=== PATIENT | male | born 1975 | race Caucasian/White ===

== ENCOUNTER 2017-11-02 19:41 | Inpatient (IN) | payer MEDICARE, MEDICAID, SELFPAY ==
[2017-11-02 19:47] VITALS: BP 113/79; PULSE 87; RESP 18
--- NOTE | 2017-11-02 19:56 | DI.CT_ITS ---
SYMPTOM/DIAGNOSIS: ABD PAIN ABDOMEN AND PELVIC CT: CT scan of the abdomen and pelvis was performed following the uneventful administration of intravenous contrast material. No priors for comparison. Mild dependent atelectatic changes are seen in the lung bases. The liver, spleen, pancreas, gallbladder and bile ducts are unremarkable. The portal and superior mesenteric veins are patent. There are bilateral adrenal nodules, the largest is on the right adrenal gland and measures 1.5 cm. The kidneys show normal and symmetric enhancement. No solid renal mass or obstruction is seen. There are a few tiny renal cortical hypodensities. They are too small for further characterization but likely reflect small cysts. The urinary bladder is intact. The reproductive organs are unremarkable. There is mild bowel wall thickening involving the terminal ileum. There also appears to be mild bowel wall thickening of more proximal loops of small bowel. The colon is of normal caliber and appearance. There is a normal appendix present. There is a trace amount of free fluid in the pelvis. No focal fluid collection is seen to suggest an abscess. No pneumoperitoneum is seen. No significant adenopathy is present. The aorta is of normal caliber. The bones are intact. IMPRESSION: Findings consistent with an enteritis which may be inflammatory or infectious. Ischemia cannot be entirely excluded but is considered less likely.
[2017-11-02] MEDS: Ketorolac 30 MG/ML VIAL IVP (20:07)
[2017-11-02] MEDS: Normal Saline 1,000 ML 1000 ML IV (20:08)
[2017-11-02] MEDS: Ondansetron 4 MG/2 ML VIAL IVP (20:09)
--- NOTE | 2017-11-02 20:12 | ED.GENADUL_ITS ---
Discharge Plan Disposition Patient Disposition: [facility] INPATIENT Condition: Fair Discharge Details Chief Complaint: Abd Prob Clinical Impression: Acute hypokalemia, Ileitis, Acute dehydration Primary Care Provider: Christ Knight ED Provider: Charles Tran and New Rx's Prescriptions: No Action oxycodone-acetaminophen 1 TAB tablet 1 tab PO TID PRN PRNRF: 0 omeprazole 20 MG capsule,delayed release(DR/EC) 40 mg PO BID RF: 0 paroxetine HCl 40 MG tablet 50 mg PO DAILY RF: 0 ibuprofen 800 MG tablet 800 mg PO QID PRN PRNQty: 0 RF: 0 nicotine 21 MG/24 HR patch 24 hour 21 mg Transdermal DAILY RF: 0 Medical Decision Making <Mannie Guevara NP - Last Filed: 11/02/17 22:33> MDM Narrative Medical decision making narrative: Patient presenting to the emergency department for chief complaint of abdominal pain for the past 4 days. He states that initially he just thought he had a mild stomachache but it has become persistent and severe. Today patient started to feel like he had a fever and has been unable to hold any food or fluids down as he states he instantly vomits and has diarrhea. Patient is ill in appearance and shows significant signs of discomfort. Physical exam shows regular cardiac and respiratory examination but diffusely severe tenderness to palpation of any portion of the abdomen. There is concern for peritoneal findings of the abdomen given diffuse severe tenderness to palpation I do feel that CT imaging and labs are warranted. Pending results patient given ketorolac and Zofran along with a liter of fluids. Received critical result of potassium of 2.9 and also further evaluation of labs shows a anion gap of 16 and otherwise nondiagnostic labs. Patient is not having leukocytosis noted at this time. Patient reassessed and states mild improvement of discomfort but with any pain. Patient still states that he is unable to tolerate any p.o. intake. Patient did have one loose BM in the emergency department which he states was just liquid. Plan to check stool sample if patient can provide, patient 20 mEq IV potassium and [address] results show some of the ileum. Given patient's dehydration, hypokalemia, and CT findings of ileitis do feel that patient is a candidate for admission. Patient signed out to Dr. Tran for further stabilization and admission. HPI <Mannie Guevara NP - Last Filed: 11/02/17 22:33> General Date/Time Provider Initiated Documentation: 11/02/17 19:47 . Limitations to Documentation: no limitations . Information obtained by: patient . History of Present Illness 42 year old M presents to the emergency department with the chief complaint of abd pain, described as severe, with intensity rated at 8. Quality is described as aching and sharp, and is localized to the abdomen. Patient started experiencing this day(s) (4) and it has been constant. No relieving factors improve symptom(s), No exacerbating factors reported . Patient did receive the following treatments prior to arrival, none Related Data Home Medications Medication Instructions Recorded Confirmed omeprazole 40 mg PO BID 03/13/14 01/12/17 oxycodone-acetaminophen 1 tab PO TID PRN PRN 03/13/14 01/12/17 paroxetine HCl 50 mg PO DAILY 03/13/14 01/12/17 Previous Rx's Medication Instructions Recorded ibuprofen 800 mg PO QID PRN PRN #0 tab 12/13/15 nicotine 21 mg TRANSDERMAL DAILY patch 12/13/15 Allergies Allergy/AdvReac Type Severity Reaction Status Date / Time No Known Allergies Allergy Unverified 01/12/17 20:13 General Stated Complaint: Abd Prob TJ: 3 Review of Systems <Mannie Guevara NP - Last Filed: 11/02/17 22:33> Constitutional Denies body ache(s), Denies chills and Reports fever(s) Cardiovascular Denies chest pain and Denies dyspnea Respiratory Denies dyspnea Gastrointestinal Reports abdominal pain, Reports nausea and Reports vomiting Integumentary/Breasts Denies rash Neurologic Denies confusion and Denies sensory deficit Psychiatric Denies confusion Exam <Mannie Guevara NP - Last Filed: 11/02/17 22:33> Const General: cooperative, in distress and ill appearing Orientation: alert, awake and oriented x3 HENMT Mouth: moist mucous membranes Resp Effort & Inspection: normal respiratory effort, able to speak in complete sentences and no respiratory distress Auscultation: clear to auscultation bilaterally Cardio Rate: regular rate Rhythm: regular rhythm Heart Sounds: S1 normal and S2 normal GI Palpation: soft, guarding in the LLQ, in the RLQ, in the LUQ and in the RUQ and tender in the LLQ, in the RLQ, in the LUQ and in the RUQ Auscultation: hyperactive bowel sounds Back/Spine/Pelvis Back: no CVA tenderness Skin General skin exam: no rashes or lesions noted Neuro General: alert, awake, oriented x3, moves all extremities and no focal motor deficits Sensory Exam: no sensory deficits noted Course <Mannie Guevara NP - Last Filed: 11/02/17 22:33> Vital Signs Pulse 87 11/02/17 19:47 Respiratory Rate 18 11/02/17 19:47 Blood Pressure 113/79 11/02/17 19:47 Pulse 87 11/02/17 19:47 Respiratory Rate 18 11/02/17 19:47 Blood Pressure 113/79 11/02/17 19:47 Sign Out <Mannie Guevara NP - Last Filed: 11/02/17 22:33> Sign Out Data: Sign Out Comment: Care patient signed over to Dr. Tran for consideration of admission of the patient with diagnosis of dehydration, hypokalemia, ileitis. Last updated by Mannie Guevara NP at 11/02/17 22:26 Post-Handoff Eval: Patient signed over to me for consideration of admission. I briefly interviewed the patient. He has had sweats and chills but does not know whether he has had fever. There has been no travel. He has been ill for the last 4 days and getting progressively worse. He has mild anion gap with hypokalemia. He has not had bloody diarrhea. CT scan shows ileitis which is likely infectious versus inflammatory and much less likely ischemic. He does not have pain out of proportion to exam. He is actually quite comfortable but still has discomfort. His abdomen is soft and mildly tender to my exam. He has had 2 L of fluid. He is finishing his IV potassium replacement. He does not feel significantly better though with medications he has stopped vomiting. Case is discussed with hospitalist, Dr. Douglas. At this point we will admit to keep him n.p.o. and continue IV fluids. Will hold off on antibiotics or steroids.
[2017-11-02 20:23] LABS: Abs Immature Grans 0.01 k/cumm (0.0-0.09); Absolute Basophil Count 0.01 k/cumm (0.0-0.2); Absolute Eosinophil Count 0.11 k/cumm (0.0-0.7); Absolute Lymphocyte Count 1.63 k/cumm (1.2-3.4); Absolute Monocyte Count 0.75 k/cumm (0.11-0.7); Absolute Neutrophil Count 4.77 k/cumm (1.2-6.7); Basophils % 0.1; Eosinophils % 1.5; HCT 44.8 % (40.0-50.0); HGB 15.7 g/dL (13.5-17.5); Immature Grans % 0.1; Lymphocytes % 22.4; Mean Corpuscular Hemoglobin 30.7 pg (27.0-33.0); Mean Corpuscular Volume 87.7 fL (80-95); Mean Platelet Volume 9.4 fL (8.0-11.0); Monocytes % 10.3; Neutrophils % 65.6; Platelet Count 254 x1000/uL (130-400); RBC 5.11 m/cumm (4.50-6.00); RBC Distribution Width 12.8 % (11.8-14.1); White Blood Cell Count 7.28 k/cumm (4.4-10.8)
[2017-11-02 20:31] LABS: ALT 37 U/L (12-78); AST 61 U/L (15-37); Albumin 3.5 g/dL (3.4-5.0); Alkaline Phosphatase 87 U/L (46-116); Anion Gap 16.2 mmol/L (3-11); BUN 18 mg/dL (7-18); Bilirubin, Total 0.3 mg/dL (0.2-1.0); CO2 19.8 mmol/L (21.0-32.0); CREATININE 1.24 mg/dL (0.70-1.30); Calcium 8.6 mg/dL (8.5-10.1); Chloride 99 mmol/L (98-107); Glucose 121 mg/dL (70-100); Lipase 90 U/L (73-393); Sodium 135 mmol/L (136-145); Total Protein 7.7 g/dL (6.4-8.2)
[2017-11-02 20:33] LABS: Potassium 2.9 mmol/L (3.5-5.1)
[2017-11-02] MEDS: Lactated Ringers 1,000 ML 1000 ML IV (21:25)
[2017-11-02] MEDS: POTASSIUM CHLORIDE 10 MEQ/100 ML BAG 100 MEQ IVPB ×2 (21:26→22:12)
--- NOTE | 2017-11-02 22:13 | DI.VRAD_ITS ---
EXAM: CT Abdomen and Pelvis With Intravenous Contrast CLINICAL HISTORY: 42 years old, male; Pain; Abdominal pain; Other: Lower abdominal pain. ; Patient HX: Abd pain, vomiting, diarrhea. TECHNIQUE: Axial computed tomography images of the abdomen and pelvis with intravenous contrast. All CT scans at this facility use at least one of these dose optimization techniques: automated exposure control; mA and/or kV adjustment per patient size (includes targeted exams where dose is matched to clinical indication); or iterative reconstruction. Coronal and sagittal reformatted images were created and reviewed. CONTRAST: 100 mL of Omnipaque 350 administered intravenously. COMPARISON: No relevant prior studies available. FINDINGS: Lung bases: Dependent changes within the lung bases. ABDOMEN: Liver: Unremarkable. No mass. Gallbladder and bile ducts: Unremarkable. No calcified stones. No ductal dilation. Pancreas: Unremarkable. No mass. No ductal dilation. Spleen: Unremarkable. No splenomegaly. Adrenals: Unremarkable. No mass. Kidneys and ureters: Unremarkable. No solid mass. No hydronephrosis. Stomach and bowel: Circumferential wall thickening of the distal and terminal ileum. No pneumatosis. Mild dilatation with fluid levels within the mid small bowel proximal to the ileum wall thickening. The proximal jejunum is unremarkable. PELVIS: Appendix: No findings to suggest acute appendicitis. Bladder: Unremarkable. No mass. Reproductive: Unremarkable as visualized. ABDOMEN and PELVIS: Intraperitoneal space: Trace fluid within the right lower pelvis. No free air. Bones/joints: No acute fracture. No dislocation. Soft tissues: Unremarkable. Vasculature: Patent superior mesenteric artery. No abdominal aortic aneurysm. Lymph nodes: Unremarkable. No enlarged lymph nodes. IMPRESSION: Ileitis involving the distal and terminal ileum, likely inflammatory or infectious. Ischemic ileitis is not excluded, but less likely. Dictated and Authenticated by: Lonny Gonzales MD. Ordering:HARI CANNON MD
[2017-11-02 23:40] VITALS: BP 120/79; PULSE 68; RESP 20; TEMP 36.3; O2SAT 96
[2017-11-02 23:52] VITALS: BP 113/80; PULSE 88; RESP 18; TEMP 36.8; O2SAT 99
[2017-11-03] MEDS: Pantoprazole 40 MG VIAL IVP (01:37)
[2017-11-03] MEDS: POTASSIUM CHLORIDE 10 MEQ/100 ML BAG 100 MEQ IVPB ×2 (01:37→03:02)
[2017-11-03] MEDS: Normal Saline Flush 10 ML SYR IVP (01:38)
--- NOTE | 2017-11-03 03:19 | HPE_ITS ---
Date of service: 11/02/17 Time of Service: 21:20 Assessment and Plan (1) Vomiting and diarrhea: Current visit: Yes Status: Acute Differential of infectious versus inflammatory ileitis/enteritis. Acuity suggests this is probably infectious but no definite exposures. He does work on a farm with swine, unknown if there might have been some acquisition of an infectious pathogen from his work. From a diagnostic standpoint will collect stool samples for bacterial pathogens. His symptoms are acute and so I am not going to order stool studies for Giardia cryptosporidia antigen. Check for occult blood. Symptomatic treatment for nausea and abdominal pain. IV hydration. Bowel rest. If symptoms are not getting better with time, consider endoscopy. Without a solid diagnosis I am not starting antibiotics or steroids. (2) Hypokalemia due to loss of potassium: Current visit: Yes Status: Acute Low potassium likely due to GI loss. Will replete intravenously and recheck potassium level. (3) Depression: Current visit: Yes Status: Chronic Apparently stable on current dose of paroxetine. Unable to take p.o. meds now but can resume his outpatient dose at 50 mg daily when he is taking p.o. (4) Chronic back pain greater than 3 months duration: Current visit: Yes Status: Acute This does not seem to be an issue now. His chronic opiates are on hold for the short-term. Need to watch for withdrawal symptoms. (5) Chronic prescription opiate use: Current visit: Yes Status: Acute From review of his outpatient notes there have not been concerns about any aberrant behaviors. He has been stable with his oxycodone dosing. (6) GERD (gastroesophageal reflux disease): Current visit: Yes Status: Chronic Chronic high-dose PPI use with patient report of EGD years ago showing no significant abnormalities. While he is n.p.o. will give PPI intravenously. (7) Smoker: Current visit: Yes Status: Chronic Not particularly interested in quitting at this time but does not have a strong interest to smoke while he is feeling so poorly. Nicotine replacement will be offered. History of Present Illness Chief Complaint: Nausea vomiting and diarrhea Narrative: 42-year-old man with a history of GERD, depression, tobacco use and chronic back pain presenting to the emergency room with 3 days of unremitting nausea, 2 days of nonbloody nonbilious vomiting and nonbloody non-melanotic diarrhea, multiple times per day. He has not been able to keep anything down, solids or liquids. Movement aggravates his symptoms. He has had some diffuse mid abdominal pain that gets a little better after he vomits or has a bowel movement. No ill contacts. No recent travel. No recent antibiotics. No history of chronic diarrhea or constipation and no known history of inflammatory bowel disease. He does have chronic GERD with dyspepsia and bloating which has responded to high-dose PPI that he takes chronically. He reports having colonoscopy and EGD decades ago to investigate his abdominal complaints with no clear etiology found. He works on a farm with pigs, no known exposures to any ill animals. No household contacts with GI symptoms. No family history of inflammatory bowel disease. He endorses chills and sweats but did not measure his temperature at home. In the emergency room he was not hypotensive or febrile. He had recurrent retching but no diarrhea. His symptoms improved somewhat Zofran and 2 L of IV fluids. Laboratory studies were notable for hypokalemia with a potassium of 2.9 for which she received a total of 20 mEq of potassium intravenously. CT scan of the abdomen notable for bowel wall swelling in the ileum compatible with ileitis, of infectious or inflammatory etiology. He is now being admitted for symptom treatment and further evaluation of his GI complaints. Medications from his outpatient medication list: Paxil 50 mg daily Omeprazole 40 mg twice daily Oxycodone/acetaminophen 5/325 1 tablet 3 times daily He has older prescriptions for azelastine, montelukast and cetirizine, not clear if these have recently been filled or if he still takes them Review of Systems Review of Systems Edentulous, teeth extracted years ago secondary to caries? No complaints of mouth sores. No trouble swallowing. No recurrent cough or wheezing. No chest pains or palpitations. GI complaints per HPI. No dysuria. Urine frequency has decreased with this illness, no blood in urine. No paresthesias in the lower extremities. Feels generally weak but no focal weakness upper or lower extremities. He has a chronic rash on his chest that he reports has been biopsied, no clear etiology found. No recent unintended weight loss. No large bruises or bleeding. [facility] Social History Smoking/Tobacco Use Status: Current every day Meds Home Medications Medication Instructions Recorded Confirmed Type omeprazole 40 mg PO BID 03/13/14 11/03/17 History oxycodone-acetaminophen 1 tab PO TID PRN PRN 03/13/14 11/03/17 History paroxetine HCl 50 mg PO DAILY 03/13/14 11/03/17 History Allergies Allergy/AdvReac Type Severity Reaction Status Date / Time No Known Allergies Allergy Unverified 01/12/17 20:13 Exam Narrative Exam Narrative: Lying on stretcher he is uncomfortable and nauseated. Does not have resting tachycardia at this time after 2 L of fluid. Sclera anicteric. Edentulous with no oral lesions. Neck supple no JVD. Lungs good aeration no crackles or wheeze. No heart murmur S3 or S4. Abdomen slightly distended, diminished bowel sounds. Mild tenderness to palpation mainly in the right side of the abdomen, no guarding or rebound and no referred pain. No organomegaly or mass appreciated. Rectal exam was not done. Extremities with good pulses distally. No pitting edema. No petechiae. He has erythematous slightly raised nodule-like lesions on his upper chest and back some of these are excoriated. Symmetric movement of all extremities. 1+ DTRs throughout. He sits up unassisted. He is oriented ?4. Results Labs : 11/02/17 20:00 11/02/17 20:00 Laboratory Results - last 24 hr 11/02/17 11/02/17 20:00 20:00 WBC 7.28 RBC 5.11 Hgb 15.7 Hct 44.8 MCV 87.7 MCH 30.7 MCHC 35.0 RDW 12.8 Plt Count 254 MPV 9.4 Immature Gran % 0.1 Neutrophils % 65.6 Lymphocytes % 22.4 Monocytes % 10.3 Eosinophils % 1.5 Basophils % 0.1 Absolute Neutrophils 4.77 Absolute Lymphocytes 1.63 Absolute Monocytes 0.75 H Absolute Eosinophils 0.11 Absolute Basophils 0.01 Sodium 135 L Potassium 2.9 L* Chloride 99 Carbon Dioxide 19.8 L Anion Gap 16.2 H BUN 18 Creatinine 1.24 Estimated GFR/1.73 m2 >= 60.00 Glucose 121 H Calcium 8.6 Total Bilirubin 0.3 AST 61 H ALT 37 Alkaline Phosphatase 87 Total Protein 7.7 Albumin 3.5 Lipase 90
[2017-11-03 07:35] LABS: Anion Gap 6.4 mmol/L (3-11); BUN 20 mg/dL (7-18); CO2 26.6 mmol/L (21.0-32.0); CREATININE 1.02 mg/dL (0.70-1.30); Calcium 8.4 mg/dL (8.5-10.1); Chloride 104 mmol/L (98-107); Glucose 103 mg/dL (70-100); Potassium 3.9 mmol/L (3.5-5.1); Sodium 137 mmol/L (136-145)
[2017-11-03 09:03] VITALS: BP 110/71; PULSE 65; RESP 18; TEMP 35.9; O2SAT 97
[2017-11-03 10:17] LABS: Bilirubin Small (Negative); Blood Trace-lysed (Negative); Clarity Clear; Glucose Negative (Negative); Ketones Negative (Negative); Leukocyte Esterase Negative (Negative); Nitrite Negative (Negative); Specific Gravity 1.025 (1.005-1.025); Urobilinogen 0.2 EU/dL (Up TO 0.2)
[2017-11-03 10:46] LABS: Bacteria Negative HPF (Negative); Epithelial Cells Negative HPF (Negative); RBC Negative (0-2); WBC 0-2 HPF (0-5)
[2017-11-03 10:47] LABS: C & S Indicated? No; Casts 3-5 Fine Granular LPF (Negative); Mucus Trace (Negative)
[2017-11-03 10:48] LABS: Crystals Many Amorphous HPF (Negative)
--- NOTE | 2017-11-03 11:17 | PDOC.CMIN ---
- If Service Date Differs Date of service: 11/03/17 Time of Service: 11:17 Care Management Initial Assess REASON FOR HOSPITALIZATION:: Nausea, Vomiting, Diarrhea PAST MEDICAL HISTORY/PAST SURGICAL HISTORY:: GERD, Allergic rhinitis, Smoker, Chronic prescription opiate use, Chronic back pain, Depression, Hypokalemia PREVIOUS FUNCTIONAL STATUS/SOCIAL/FAMILY SUPPORTS:: Félix resides with his Ciera of 18 years in [place]. Félix states that they have three children, all whom are adults. Félix also states that him and his are adopting their 2 year old grandchild. 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 He is independent at baseline, drives, and manages ADL's CURRENT FUNCTIONAL STATUS:: Currently Félix is lying in bed this morning, he is pleasant and open to conversation. ADVANCE DIRECTIVES:: None on file Has patient been provided with information about the portal?: Yes Did the patient sign up for the portal?: No CODE STATUS:: Full Code INSURANCE COVERAGE / FINANCIAL ISSUES:: Medicare, Medicaid. Disability - has been on disability for 9 years for spine issues CURRENT HOME/COMMUNITY SERVICES/EQUIPMENT:: Currently Félix has no services or medical equipment in the community. PRIMARY CARE PHYSICIAN:: Christ Knight POTENTIAL DISCHARGE NEEDS:: F/U appointment with PCP PATIENT/FAMILY EDUCATION NEEDS:: Review DC instructions, any limitations, and ongoing DC planning discussion. Ask Me Three ANTICIPATED BARRIERS TO DISCHARGE:: None identified at this time. TRANSPORTATION:: Via private vehicle with Ciera PLAN:: Félix will return home with no anticipated services. He will F/U with PCP and plan of care as prescribed. Félix's Ciera will transport when ready.
--- NOTE | 2017-11-03 13:36 | PHARADMIT ---
Addendum entered by Sana Amaro 11/05/17 11:31: Pharmacy Note Subjective last episode of diarrhea yesterday afternoon per morning report, so advancing diet again Objective HR-56 other VS okay Assessment waiting on the results of some stool send outs Plan continue to watch VS, labs and for med changes Original Note: Addendum entered by Sana Amaro 11/04/17 13:01: Pharmacy Note Subjective backed off on diet (back to clear liquids) for bowel rest Objective HR-58 other VS okay electrolytes within normal limits h/h-12.6/37.6(down) Assessment C.diff negative; lactoferrin positive ranitidine discontinued, omeprazole ordered Plan continue to watch Vs, labs and for med changes, Original Note: Admission Pharmacy Clinical Review ILEITIS Code Status Full Code Current Weight 101.2 kg Renally Cleared and Narrow Therapeutic Index Meds CRCL ~99ML/MIN QTc Value / Action Taken BP Control, Fever 110/71 AFEBRILE Electrolytes reviewed OK DVT Prophylaxis NO Opiate Usage / Scheduled Bowel Regimen Ordered NO/NO Plt/SCr for Heparin / Enoxaparin 254/1.02 INR for Warfarin NA H/H stable, WBC/Bands 15.7/44.8 WBC 7.28 Antibiotic appropriateness NA Cultures and Sensitivities NA Surgical ABX d/c within 24 hr NA DM control / Insulin Dosing Heart Failure (Check EF%) (JUSTINO's, B-Block, Diuretics) IV to PO Switch Home Meds Reviewed Home Meds Not Ordered oxycodone-acetaminophen 1 tab PO TID PRN PRN 03/13/14 paroxetine HCl 50 mg PO DAILY 03/13/14 [History Confirmed 11/03/17] ibuprofen 800 mg PO QID PRN PRN #0 tab 12/13/15 [Rx Confirmed 11/03/17] Comments
[2017-11-03 16:32] VITALS: BP 105/68; PULSE 69; RESP 18; TEMP 36.4; O2SAT 96
--- NOTE | 2017-11-03 16:58 | PGE_ITS ---
Date of service: 11/03/17 Time of Service: 16:52 Assessment and Plan (1) Vomiting and diarrhea: Current visit: Yes Status: Acute Differential of infectious versus inflammatory ileitis/enteritis. 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 He appears to be improving today. Stool studies are pending. Continue symptomatic treatment. Consider endoscopy if his symptoms persist. Hold off on antibiotics and steroids for now without a clear diagnosis. (2) Hypokalemia due to loss of potassium: Current visit: Yes Status: Acute He has received potassium supplementation. His potassium is normal today at 3.9. Potassium containing IV fluids have been discontinued. Continue to monitor electrolytes. (3) GERD (gastroesophageal reflux disease): Current visit: Yes Status: Chronic He denies current symptoms. He has been on high dose PPI therapy. Hold for now and trial H2 cesar to determine if the PPI is contributing to his diarrhea. (4) Depression: Current visit: Yes Status: Chronic Stable on current paroxetine. Has been restarted on his home regimen. Continue home dosing. (5) Discharge planning issues: Current visit: Yes Status: Acute He is a FULL CODE. Continue to monitor on observation status. Subjective Interval history since last seen: 42-year-old man with a history of GERD, depression, tobacco use and chronic back pain presenting to the emergency room with 3 days of unremitting nausea, 2 days of nonbloody nonbilious vomiting and nonbloody non-melanotic diarrhea, multiple times per day. He was unable to keep anything down. He has had No ill contacts. No recent travel. No recent antibiotics. No history of chronic diarrhea or constipation and no known history of inflammatory bowel disease. In the emergency room his laboratory studies were notable for hypokalemia with a potassium of 2.9 for which she received supplementation and potassium containing fluids over night. He had a CT scan of the abdomen which was notable for bowel wall swelling in the ileum compatible with ileitis, of infectious or inflammatory etiology. He was admitted for symptom management. Today he notes that he is no longer nauseated, his bowel movements seemed to have subsided he was NPO overnight. His diet was advanced to clear liquids, which he tolerated well. He then went on to eat a regular lunch and had recurrence of his diarrhea. Stool studies were collected. His labs were fairly unremarkable today. He denies any other concerns. He was started on protonix here, however, his PPI was changed to an H2 cesar to see if this made any difference with his diarrhea. Exam Const General: cooperative, comfortable and no acute distress Orientation: alert, awake and oriented x3 HENMT Head: normocephalic and atraumatic Mouth: moist mucous membranes Teeth and gingiva: edentulous Neck Neck: supple and no JVD Resp Effort & Inspection: normal respiratory effort Auscultation: clear to auscultation bilaterally, no rales, no rhonchi and no wheezes Cardio Rate: regular rate Heart Sounds: S1 normal, S2 normal, no click, no gallops, no murmurs and no rubs GI Palpation: soft, no masses and tender (mild epigastric tenderness.) Auscultation: normal bowel sounds Skin General skin exam: no rashes or lesions noted Extrem General: no clubbing, cyanosis or edema Objective Objective Clinical Data: Abnormal lab results 11/02/17 11/02/17 11/03/17 Range/Units 20:00 20:00 06:10 Absolute Monocytes 0.75 H (0.11-0.7) k/cumm Sodium 135 L (136-145) mmol/L Potassium 2.9 L* (3.5-5.1) mmol/L Carbon Dioxide 19.8 L (21.0-32.0) mmol/L Anion Gap 16.2 H (3-11) mmol/L BUN 20 H (7-18) mg/dL Glucose 121 H 103 H (70-100) mg/dL Calcium 8.4 L (8.5-10.1) mg/dL AST 61 H (15-37) U/L Urine Protein (Negative) mg/dL Urine Blood (Negative) Urine Bilirubin (Negative) 11/03/17 Range/Units 09:57 Absolute Monocytes (0.11-0.7) k/cumm Sodium (136-145) mmol/L Potassium (3.5-5.1) mmol/L Carbon Dioxide (21.0-32.0) mmol/L Anion Gap (3-11) mmol/L BUN (7-18) mg/dL Glucose (70-100) mg/dL Calcium (8.5-10.1) mg/dL AST (15-37) U/L Urine Protein 100 H (Negative) mg/dL Urine Blood Trace-lysed H (Negative) Urine Bilirubin Small H (Negative) Vital Signs Temp 36.4 C L 11/03/17 16:32 Pulse 69 11/03/17 16:32 Resp 18 11/03/17 16:32 BP 105/68 11/03/17 16:32 Pulse Ox 96 11/03/17 16:32 Intake & Output 11/02/17 11/03/17 11/03/17 23:59 11:59 23:59 Intake Total 76.667 / 76.667 2440 / 2440 875 / 875 Balance 76.667 / 76.667 2440 / 2440 875 / 875 Weight 101.2 kg Intake: IV 76.667 / 76.667 2200 / 2200 185 / 185 Oral 240 / 240 690 / 690 Other: Comment voiding well thruout day shift Stool Occult Blood Positive Stool Size Moderate Stool Characteristics Liquid Liquid Brown Voiding Methods Toilet Laboratory Results WBC 7.28 k/cumm (4.4-10.8) 11/02/17 20:00 RBC 5.11 m/cumm (4.50-6.00) 11/02/17 20:00 Hgb 15.7 g/dL (13.5-17.5) 11/02/17 20:00 Hct 44.8 % (40.0-50.0) 11/02/17 20:00 MCV 87.7 fL (80-95) 11/02/17 20:00 MCH 30.7 pg (27.0-33.0) 11/02/17 20:00 MCHC 35.0 g/dL (32.0-36.0) 11/02/17 20:00 RDW 12.8 % (11.8-14.1) 11/02/17 20:00 Plt Count 254 x1000/uL (130-400) 11/02/17 20:00 MPV 9.4 fL (8.0-11.0) 11/02/17 20:00 Immature Gran % 0.1 11/02/17 20:00 Neutrophils % 65.6 11/02/17 20:00 Lymphocytes % 22.4 11/02/17 20:00 Monocytes % 10.3 11/02/17 20:00 Eosinophils % 1.5 11/02/17 20:00 Basophils % 0.1 11/02/17 20:00 Absolute Neutrophils 4.77 k/cumm (1.2-6.7) 11/02/17 20:00 Absolute Lymphocytes 1.63 k/cumm (1.2-3.4) 11/02/17 20:00 Absolute Monocytes 0.75 k/cumm (0.11-0.7) H 11/02/17 20:00 Absolute Eosinophils 0.11 k/cumm (0.0-0.7) 11/02/17 20:00 Absolute Basophils 0.01 k/cumm (0.0-0.2) 11/02/17 20:00 Sodium 137 mmol/L (136-145) 11/03/17 06:10 Potassium 3.9 mmol/L (3.5-5.1) D 11/03/17 06:10 Chloride 104 mmol/L (98-107) 11/03/17 06:10 Carbon Dioxide 26.6 mmol/L (21.0-32.0) 11/03/17 06:10 Anion Gap 6.4 mmol/L (3-11) 11/03/17 06:10 BUN 20 mg/dL (7-18) H 11/03/17 06:10 Creatinine 1.02 mg/dL (0.70-1.30) 11/03/17 06:10 Estimated GFR/1.73 m2 >= 60.00 (mL/min/1.73m2) 11/03/17 06:10 Glucose 103 mg/dL (70-100) H 11/03/17 06:10 Calcium 8.4 mg/dL (8.5-10.1) L 11/03/17 06:10 Total Bilirubin 0.3 mg/dL (0.2-1.0) 11/02/17 20:00 AST 61 U/L (15-37) H 11/02/17 20:00 ALT 37 U/L (12-78) 11/02/17 20:00 Alkaline Phosphatase 87 U/L (46-116) 11/02/17 20:00 Total Protein 7.7 g/dL (6.4-8.2) 11/02/17 20:00 Albumin 3.5 g/dL (3.4-5.0) 11/02/17 20:00 Lipase 90 U/L (73-393) 11/02/17 20:00 Urine Color Dark yellow (Yellow) 11/03/17 09:57 Urine Clarity Clear 11/03/17 09:57 Urine pH 6.0 (5-8) 11/03/17 09:57 Ur Specific [place] 1.025 (1.005-1.025) 11/03/17 09:57 Urine Protein 100 mg/dL (Negative) H 11/03/17 09:57 Urine Ketones Negative mg/dL (Negative) 11/03/17 09:57 Urine Blood Trace-lysed (Negative) H 11/03/17 09:57 Urine Nitrite Negative (Negative) 11/03/17 09:57 Urine Bilirubin Small (Negative) H 11/03/17 09:57 Urine Urobilinogen 0.2 EU/dL (Up TO 0.2) 11/03/17 09:57 Ur Leukocyte Esterase Negative (Negative) 11/03/17 09:57 Urine RBC Negative (0-2) 11/03/17 09:57 Urine WBC 0-2 HPF (0-5) 11/03/17 09:57 Ur Epithelial Cells Negative HPF (Negative) 11/03/17 09:57 Urine Crystals Many amorphous HPF (Negative) 11/03/17 09:57 Urine Bacteria Negative HPF (Negative) 11/03/17 09:57 Urine Casts 3-5 fine granular LPF (Negative) 11/03/17 09:57 Urine Mucus Trace (Negative) 11/03/17 09:57 Ur Culture Indicated? No 11/03/17 09:57 Urine Glucose Negative mg/dL (Negative) 11/03/17 09:57 C.difficile Tox Ab Neut Cancelled 11/03/17 14:55
[2017-11-03 20:06] VITALS: BP 114/65; PULSE 72; RESP 18; TEMP 36.8; O2SAT 95
[2017-11-04 07:19] LABS: HCT 37.6 % (40.0-50.0); HGB 12.6 g/dL (13.5-17.5); Mean Corp. HGB Concentration 33.5 g/dL (32.0-36.0); Mean Corpuscular Hemoglobin 30.4 pg (27.0-33.0); Mean Corpuscular Volume 90.8 fL (80-95); Mean Platelet Volume 9.4 fL (8.0-11.0); Platelet Count 248 x1000/uL (130-400); RBC 4.14 m/cumm (4.50-6.00); RBC Distribution Width 12.5 % (11.8-14.1); White Blood Cell Count 5.47 k/cumm (4.4-10.8)
[2017-11-04 07:35] VITALS: BP 112/69; PULSE 58; RESP 18; TEMP 36.9; O2SAT 99
[2017-11-04] MEDS: PARoxetine 20 MG TAB 40 MG PO (07:48)
[2017-11-04] MEDS: PARoxetine 10 MG TAB PO (07:48)
[2017-11-04] MEDS: Normal Saline Flush 10 ML SYR IVP (07:55)
--- NOTE | 2017-11-04 08:59 | PDOC.CMPRO ---
- If Service Date Differs Date of service: 11/04/17 Time of Service: 08:59 Care Management Progress Note S/O: Félix is lying in bed this morning when this com writer visits. He states that he did not sleep well last night. Per MD in morning meeting diet will be advanced slowly. No change in DC plan. A: 42 y/o male admitted 11/02/17 for ileitis. P: Félix will return home with no anticipated services. He will F/u with PCP and plan of care as prescribed. [facility] to transport.
[2017-11-04 09:20] LABS: Anion Gap 5.3 mmol/L (3-11); BUN 16 mg/dL (7-18); CO2 29.7 mmol/L (21.0-32.0); CREATININE 0.93 mg/dL (0.70-1.30); Calcium 8.5 mg/dL (8.5-10.1); Chloride 107 mmol/L (98-107); Glucose 97 mg/dL (70-100); Potassium 3.9 mmol/L (3.5-5.1); Sodium 142 mmol/L (136-145)
--- NOTE | 2017-11-04 09:43 | CMPROGNOTE_ITS ---
- If Service Date Differs Date of service: 11/04/17 Time of Service: 08:59 Care Management Progress Note S/O: Félix is lying in bed this morning when this health underwriter visits. He states that he did not sleep well last night. Per MD in morning meeting diet will be advanced slowly. No change in DC plan. A: 42 y/o male admitted 11/02/17 for ileitis. P: Félix will return home with no anticipated services. He will F/u with PCP and plan of care as prescribed. [facility] to transport.
[2017-11-04] MEDS: Omeprazole 20 MG CAPCR 40 MG PO ×2 (10:02→20:23)
--- NOTE | 2017-11-04 10:21 | W.PM.PROGNOT ---
Date of service: 11/04/17 Time of Service: 10:22 Assessment and Plan (1) Vomiting and diarrhea: Current visit: Yes Status: Acute Differential of infectious versus inflammatory ileitis/enteritis. 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 His diet was advanced yesterday, he has had increased diarrhea since. We will plan to place him back on a clear liquid diet for bowel rest. Stool studies are pending. Continue symptomatic treatment. Consider endoscopy if his symptoms persist. Hold off on antibiotics and steroids for now without a clear diagnosis. (2) Hypokalemia due to loss of potassium: Current visit: Yes Status: Acute His potassium is normal today at 3.9. He is no longer receiving potassium supplementation. Continue to monitor electrolytes in the setting of diarrhea. (3) GERD (gastroesophageal reflux disease): Current visit: Yes Status: Chronic He denies current symptoms. He has been on high dose PPI therapy. His PPI was held and he was given an H2 cesar to determine if the PPI was contributing to his diarrhea. His GERD has increased significantly. Plan to place him back on his usual PPI dose. Continue to monitor. (4) Depression: Current visit: Yes Status: Chronic Stable on current paroxetine. Continue home regimen. (5) Discharge planning issues: Current visit: Yes Status: Acute He is a FULL CODE. Continue to monitor on observation status. this case was discussed with Dr. Kearns who is in agreement. (6) Anemia: Current visit: Yes Status: Chronic His hemoglobin and hematocrit are done today. He has had diarrhea and did have a heme positive stool on admission. Continue to heme test stools and follow blood counts. Subjective Interval history since last seen: 42-year-old man with a history of GERD, depression, tobacco use and chronic back pain presenting to the emergency room with 3 days of unremitting nausea, 2 days of nonbloody nonbilious vomiting and nonbloody non-melanotic diarrhea, multiple times per day. He was unable to keep anything down. He has had No ill contacts. No recent travel. No recent antibiotics. No history of chronic diarrhea or constipation and no known history of inflammatory bowel disease. In the emergency room his laboratory studies were notable for hypokalemia with a potassium of 2.9 for which she received supplementation and potassium containing with overnight improvement. He had a CT scan of the abdomen which was notable for bowel wall swelling in the ileum compatible with ileitis, of infectious or inflammatory etiology. He was admitted for symptom management. He was kept n.p.o. Yesterday morning his diarrhea had subsided somewhat. His diet was advanced to clear liquids which he tolerated well. He asked to advance his diet for other. With the advancement of his diet his diarrhea ensued. He has had multiple brown liquid stools. His only other complaint is epigastric discomfort. His PPI was changed to an H2 cesar yesterday. We will place him back on his usual PPI therapy. On his initial presentation he was noted to have a heme positive stool. His hemoglobin and hematocrit are down slightly today. We will place him back on a clear liquid diet to give his bowels some rest and continue to follow his blood counts. He does have blood cultures pending which we will continue to follow. He denies any other concerns such as cough, shortness of breath, wheezing, chest pain, pressure, palpitations, nausea, vomiting, he has not reported any pain. Exam Const General: cooperative, comfortable and no acute distress Orientation: alert, awake and oriented x3 HENMT Head: normocephalic and atraumatic Mouth: moist mucous membranes Teeth and gingiva: edentulous Neck Neck: supple and no JVD Resp Effort & Inspection: normal respiratory effort Auscultation: clear to auscultation bilaterally, no rales, no rhonchi and no wheezes Cardio Rate: regular rate Heart Sounds: S1 normal, S2 normal, no click, no gallops, no murmurs and no rubs GI Palpation: soft, no masses and tender (mild epigastric tenderness on palpation.) Auscultation: normal bowel sounds Skin General skin exam: no rashes or lesions noted Extrem General: no clubbing, cyanosis or edema Objective Objective Clinical Data: Abnormal lab results 11/03/17 11/04/17 Range/Units 09:57 06:22 RBC 4.14 L (4.50-6.00) m/cumm Hgb 12.6 L D (13.5-17.5) g/dL Hct 37.6 L (40.0-50.0) % Urine Protein 100 H (Negative) mg/dL Urine Blood Trace-lysed H (Negative) Urine Bilirubin Small H (Negative) Vital Signs Temp 36.9 C 11/04/17 07:35 Pulse 58 L 09/22/18 07:35 Resp 18 11/04/17 07:35 BP 112/69 11/04/17 07:35 Pulse Ox 99 11/04/17 07:35 Intake & Output 11/03/17 11/03/17 11/04/17 11:59 23:59 11:59 Intake Total 2440 / 2440 875 / 875 3112 / 3112 Balance 2440 / 2440 875 / 875 3112 / 3112 Intake: IV 2200 / 2200 185 / 185 10 Oral 240 / 240 690 / 690 3102 / 3102 Other: Urine Appearance Clear Clear Comment voiding well thruout day shift voiding indep in BR at tim. Stool Occult Blood Positive Stool Size Moderate Stool Characteristics Liquid Liquid Liquid Brown Brown Brown Voiding Methods Toilet Toilet Laboratory Results WBC 5.47 k/cumm (4.4-10.8) 11/04/17 06:22 RBC 4.14 m/cumm (4.50-6.00) L 11/04/17 06:22 Hgb 12.6 g/dL (13.5-17.5) L D 11/04/17 06:22 Hct 37.6 % (40.0-50.0) L 11/04/17 06:22 MCV 90.8 fL (80-95) 11/04/17 06:22 MCH 30.4 pg (27.0-33.0) 11/04/17 06:22 MCHC 33.5 g/dL (32.0-36.0) 11/04/17 06:22 RDW 12.5 % (11.8-14.1) 11/04/17 06:22 Plt Count 248 x1000/uL (130-400) 11/04/17 06:22 MPV 9.4 fL (8.0-11.0) 11/04/17 06:22 Immature Gran % 0.1 11/02/17 20:00 Neutrophils % 65.6 11/02/17 20:00 Lymphocytes % 22.4 11/02/17 20:00 Monocytes % 10.3 11/02/17 20:00 Eosinophils % 1.5 11/02/17 20:00 Basophils % 0.1 11/02/17 20:00 Absolute Neutrophils 4.77 k/cumm (1.2-6.7) 11/02/17 20:00 Absolute Lymphocytes 1.63 k/cumm (1.2-3.4) 11/02/17 20:00 Absolute Monocytes 0.75 k/cumm (0.11-0.7) H 11/02/17 20:00 Absolute Eosinophils 0.11 k/cumm (0.0-0.7) 11/02/17 20:00 Absolute Basophils 0.01 k/cumm (0.0-0.2) 11/02/17 20:00 Sodium 142 mmol/L (136-145) 11/04/17 09:00 Potassium 3.9 mmol/L (3.5-5.1) 11/04/17 09:00 Chloride 107 mmol/L (98-107) 11/04/17 09:00 Carbon Dioxide 29.7 mmol/L (21.0-32.0) 11/04/17 09:00 Anion Gap 5.3 mmol/L (3-11) 11/04/17 09:00 BUN 16 mg/dL (7-18) 11/04/17 09:00 Creatinine 0.93 mg/dL (0.70-1.30) 11/04/17 09:00 Estimated GFR/1.73 m2 >= 60.00 (mL/min/1.73m2) 11/04/17 09:00 Glucose 97 mg/dL (70-100) 11/04/17 09:00 Calcium 8.5 mg/dL (8.5-10.1) 11/04/17 09:00 Total Bilirubin 0.3 mg/dL (0.2-1.0) 11/02/17 20:00 AST 61 U/L (15-37) H 11/02/17 20:00 ALT 37 U/L (12-78) 11/02/17 20:00 Alkaline Phosphatase 87 U/L (46-116) 11/02/17 20:00 Total Protein 7.7 g/dL (6.4-8.2) 11/02/17 20:00 Albumin 3.5 g/dL (3.4-5.0) 11/02/17 20:00 Lipase 90 U/L (73-393) 11/02/17 20:00 Urine Color Dark yellow (Yellow) 11/03/17 09:57 Urine Clarity Clear 11/03/17 09:57 Urine pH 6.0 (5-8) 11/03/17 09:57 Ur Specific [place] 1.025 (1.005-1.025) 11/03/17 09:57 Urine Protein 100 mg/dL (Negative) H 11/03/17 09:57 Urine Ketones Negative mg/dL (Negative) 11/03/17 09:57 Urine Blood Trace-lysed (Negative) H 11/03/17 09:57 Urine Nitrite Negative (Negative) 11/03/17 09:57 Urine Bilirubin Small (Negative) H 11/03/17 09:57 Urine Urobilinogen 0.2 EU/dL (Up TO 0.2) 11/03/17 09:57 Ur Leukocyte Esterase Negative (Negative) 11/03/17 09:57 Urine RBC Negative (0-2) 11/03/17 09:57 Urine WBC 0-2 HPF (0-5) 11/03/17 09:57 Ur Epithelial Cells Negative HPF (Negative) 11/03/17 09:57 Urine Crystals Many amorphous HPF (Negative) 11/03/17 09:57 Urine Bacteria Negative HPF (Negative) 11/03/17 09:57 Urine Casts 3-5 fine granular LPF (Negative) 11/03/17 09:57 Urine Mucus Trace (Negative) 11/03/17 09:57 Ur Culture Indicated? No 11/03/17 09:57 Urine Glucose Negative mg/dL (Negative) 11/03/17 09:57 C.difficile Tox Ab Neut Cancelled 11/03/17 14:55
[2017-11-04] MEDS: Magnesium Oxide 400 MG TAB PO (14:49)
[2017-11-04] MEDS: Potassium Chloride 20 MEQ TABCR 40 MEQ PO (14:50)
[2017-11-04 16:03] VITALS: BP 113/71; PULSE 67; RESP 18; TEMP 37.1; O2SAT 97
[2017-11-04] MEDS: Melatonin 3 MG TAB PO (20:23)
[2017-11-05 00:30] VITALS: BP 123/61; PULSE 59; RESP 18; TEMP 36.6; O2SAT 97
[2017-11-05 07:16] VITALS: BP 124/81; PULSE 56; RESP 16; TEMP 35.5; O2SAT 96
[2017-11-05 07:22] LABS: HCT 37.1 % (40.0-50.0); HGB 12.4 g/dL (13.5-17.5); Mean Corp. HGB Concentration 33.4 g/dL (32.0-36.0); Mean Corpuscular Hemoglobin 30.2 pg (27.0-33.0); Mean Corpuscular Volume 90.3 fL (80-95); Mean Platelet Volume 9.7 fL (8.0-11.0); Platelet Count 259 x1000/uL (130-400); RBC 4.11 m/cumm (4.50-6.00); RBC Distribution Width 12.4 % (11.8-14.1); White Blood Cell Count 6.16 k/cumm (4.4-10.8)
[2017-11-05 07:33] LABS: BUN 10 mg/dL (7-18); CREATININE 0.89 mg/dL (0.70-1.30); Calcium 8.4 mg/dL (8.5-10.1); Chloride 107 mmol/L (98-107); Glucose 94 mg/dL (70-100); Potassium 4.1 mmol/L (3.5-5.1); Sodium 144 mmol/L (136-145)
[2017-11-05] MEDS: PARoxetine 10 MG TAB PO (07:37)
[2017-11-05] MEDS: Omeprazole 20 MG CAPCR 40 MG PO ×2 (07:38→19:29)
[2017-11-05] MEDS: PARoxetine 20 MG TAB 40 MG PO (07:38)
--- NOTE | 2017-11-05 13:57 | PGE_ITS ---
Date of service: 11/05/17 Time of Service: 13:55 Assessment and Plan (1) Vomiting and diarrhea: Current visit: Yes Status: Acute Differential of infectious versus inflammatory ileitis/enteritis. 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 His diet was advanced yesterday and again today, which he seems to be tolerating well. Stool studies with negative C.Diff, and positive fecal leukocytes as expected, with stool cultures still pending. Continue symptomatic treatment. Will florin further management based on results of stool studies. (2) Hypokalemia due to loss of potassium: Current visit: Yes Status: Acute In setting of GI Losees. Current potassium normalized with resolution of vomiting and decrease in diarrhea. (3) GERD (gastroesophageal reflux disease): Current visit: Yes Status: Chronic He denies current symptoms. He has been on high dose PPI therapy. His PPI was held and he was given an H2 cesar to determine if the PPI was contributing to his diarrhea. His GERD has increased significantly. Plan to place him back on his usual PPI dose. Continue to monitor. (4) Depression: Current visit: Yes Status: Chronic Stable on current paroxetine. Continue home regimen. (5) Discharge planning issues: Current visit: Yes Status: Acute He is a FULL CODE. (6) Anemia: Current visit: Yes Status: Chronic Mild diarrhea with Heme positive stool in setting of infectious or inflammatory changes. Current H/H stable. Monitor. (7) DVT prophylaxis: Current visit: Yes Status: Acute Ambulating well. Due to mild drop in Hemoglobin and heme positive stool in setting of ileitis will hold off on SC Lovenox. Ensure SCDs. Subjective Interval history since last seen: 42-year-old man with a history of GERD, depression, tobacco use and chronic back pain admitted from [facility] emergency room with 3 days of unremitting nausea, 2 days of vomiting, and nonbloody non- melanotic diarrhea, multiple times per day. The patient had been unable to keep anything down. He reported no ill contacts. No recent travel. No recent antibiotics. No history of chronic diarrhea or constipation and no known history of inflammatory bowel disease. In the emergency room his laboratory studies were notable for hypokalemia with a potassium of 2.9 in the setting of diarrhea and vomiting, and a CT scan of the abdomen which was notable for bowel wall swelling in the ileum compatible with ileitis of infectious or inflammatory etiology. He was admitted for symptom management. Mr. Mcintosh was initially kept n.p.o. Yesterday morning his diarrhea had subsided somewhat. His diet was advanced to clear liquids, and then further but with rapid return in his symptoms. Currently he is tolerating a Clear to full liquid diet, with last bowel movement initally reported as 4pm yesterday, and again at 1 this afternoon which he subjectively reported as more formed than prior. His abdominal pain is similiarly imrpved. Stool Studies are negative for C.Diff and positive for fecal leukocytes, with stool cultures still pending. No other overnight events were reported. The patient remains afebrile. Exam Const General: cooperative, comfortable and no acute distress Orientation: alert, awake and oriented x3 Neck Neck: supple Resp Effort & Inspection: normal respiratory effort and able to speak in complete sentences Auscultation: clear to auscultation bilaterally, no rales, no rhonchi and no wheezes Cardio Rate: regular rate Heart Sounds: S1 normal, S2 normal, no gallops, no murmurs and no rubs GI Palpation: soft and tender (mild and improved) in the LLQ, in the RLQ, in the LUQ and in the RUQ Auscultation: normal bowel sounds Neuro General: alert, awake, oriented x3, moves all extremities and no focal motor deficits Extrem General: no clubbing, cyanosis or edema Objective Objective Clinical Data: Abnormal lab results 11/05/17 11/05/17 Range/Units 06:10 06:10 RBC 4.11 L (4.50-6.00) m/cumm Hgb 12.4 L (13.5-17.5) g/dL Hct 37.1 L (40.0-50.0) % Calcium 8.4 L (8.5-10.1) mg/dL Vital Signs Temperature 35.5 C L 11/05/17 07:16 Temperature Source Tympanic 11/05/17 07:16 Pulse 56 L 11/05/17 07:16 Pulse Rhythm Regular 11/05/17 07:18 Respiratory Rate 16 11/05/17 07:16 Respiratory Effort Non-Labored 11/05/17 07:18 Respiratory Depth Normal 11/05/17 07:18 Respiratory Pattern Normal 11/05/17 07:18 Blood Pressure 124/81 11/05/17 07:16 Blood Pressure Position Sitting 11/02/17 19:47 Pulse Oximetry 96 11/05/17 07:16 Oxygen Delivery Method Room Air 11/05/17 07:16 Oxygen Flow Rate 0 11/05/17 07:16 Pain Level 1 11/05/17 07:16 Comment 11/05/17 07:16 Intake & Output 11/04/17 11/05/17 11/05/17 23:59 11:59 23:59 Intake Total 1310 / 1310 740 / 740 240 / 240 Balance 1310 / 1310 740 / 740 240 / 240 Intake: IV Oral 1300 / 1300 740 / 740 240 / 240 Other: Comment pt voiding independently in the toilet oob x 4 during noc to void Stool Size Moderate Stool Characteristics Liquid Soft Brown Voiding Methods Toilet Toilet Laboratory Results WBC 6.16 k/cumm (4.4-10.8) 11/05/17 06:10 RBC 4.11 m/cumm (4.50-6.00) L 11/05/17 06:10 Hgb 12.4 g/dL (13.5-17.5) L 11/05/17 06:10 Hct 37.1 % (40.0-50.0) L 11/05/17 06:10 MCV 90.3 fL (80-95) 11/05/17 06:10 MCH 30.2 pg (27.0-33.0) 11/05/17 06:10 MCHC 33.4 g/dL (32.0-36.0) 11/05/17 06:10 RDW 12.4 % (11.8-14.1) 11/05/17 06:10 Plt Count 259 x1000/uL (130-400) 11/05/17 06:10 MPV 9.7 fL (8.0-11.0) 11/05/17 06:10 Immature Gran % 0.1 11/02/17 20:00 Neutrophils % 65.6 11/02/17 20:00 Lymphocytes % 22.4 11/02/17 20:00 Monocytes % 10.3 11/02/17 20:00 Eosinophils % 1.5 11/02/17 20:00 Basophils % 0.1 11/02/17 20:00 Absolute Neutrophils 4.77 k/cumm (1.2-6.7) 11/02/17 20:00 Absolute Lymphocytes 1.63 k/cumm (1.2-3.4) 11/02/17 20:00 Absolute Monocytes 0.75 k/cumm (0.11-0.7) H 11/02/17 20:00 Absolute Eosinophils 0.11 k/cumm (0.0-0.7) 11/02/17 20:00 Absolute Basophils 0.01 k/cumm (0.0-0.2) 11/02/17 20:00 Sodium 144 mmol/L (136-145) 11/05/17 06:10 Potassium 4.1 mmol/L (3.5-5.1) 11/05/17 06:10 Chloride 107 mmol/L (98-107) 11/05/17 06:10 Carbon Dioxide 29.0 mmol/L (21.0-32.0) 11/05/17 06:10 Anion Gap 8.0 mmol/L (3-11) 11/05/17 06:10 BUN 10 mg/dL (7-18) D 11/05/17 06:10 Creatinine 0.89 mg/dL (0.70-1.30) 11/05/17 06:10 Estimated GFR/1.73 m2 >= 60.00 (mL/min/1.73m2) 11/05/17 06:10 Glucose 94 mg/dL (70-100) 11/05/17 06:10 Calcium 8.4 mg/dL (8.5-10.1) L 11/05/17 06:10 Total Bilirubin 0.3 mg/dL (0.2-1.0) 11/02/17 20:00 AST 61 U/L (15-37) H 11/02/17 20:00 ALT 37 U/L (12-78) 11/02/17 20:00 Alkaline Phosphatase 87 U/L (46-116) 11/02/17 20:00 Total Protein 7.7 g/dL (6.4-8.2) 11/02/17 20:00 Albumin 3.5 g/dL (3.4-5.0) 11/02/17 20:00 Lipase 90 U/L (73-393) 11/02/17 20:00 Urine Color Dark yellow (Yellow) 11/03/17 09:57 Urine Clarity Clear 11/03/17 09:57 Urine pH 6.0 (5-8) 11/03/17 09:57 Ur Specific [place] 1.025 (1.005-1.025) 11/03/17 09:57 Urine Protein 100 mg/dL (Negative) H 11/03/17 09:57 Urine Ketones Negative mg/dL (Negative) 11/03/17 09:57 Urine Blood Trace-lysed (Negative) H 11/03/17 09:57 Urine Nitrite Negative (Negative) 11/03/17 09:57 Urine Bilirubin Small (Negative) H 11/03/17 09:57 Urine Urobilinogen 0.2 EU/dL (Up TO 0.2) 11/03/17 09:57 Ur Leukocyte Esterase Negative (Negative) 11/03/17 09:57 Urine RBC Negative (0-2) 11/03/17 09:57 Urine WBC 0-2 HPF (0-5) 11/03/17 09:57 Ur Epithelial Cells Negative HPF (Negative) 11/03/17 09:57 Urine Crystals Many amorphous HPF (Negative) 11/03/17 09:57 Urine Bacteria Negative HPF (Negative) 11/03/17 09:57 Urine Casts 3-5 fine granular LPF (Negative) 11/03/17 09:57 Urine Mucus Trace (Negative) 11/03/17 09:57 Ur Culture Indicated? No 11/03/17 09:57 Urine Glucose Negative mg/dL (Negative) 11/03/17 09:57 C.difficile Tox Ab Neut Cancelled 11/03/17 14:55
--- NOTE | 2017-11-05 14:10 | PDOC.CMPRO ---
- If Service Date Differs Date of service: 11/05/17 Time of Service: 14:10 Care Management Progress Note S/O: Félix is doing well this morning, he is up ambulating in the halls with his . CM discussed DC planning and plans remain unchanged at this time. A: 42 y/o male admitted 11/02/17 for ileitis. P: Félix will return home with no anticipated services. He will F/u with PCP and plan of care as prescribed. Félix's [facility] to transport.
[2017-11-05 16:04] VITALS: BP 106/59; PULSE 68; RESP 17; TEMP 37.1; O2SAT 95
[2017-11-05 23:34] VITALS: BP 133/77; PULSE 69; RESP 20; TEMP 36.1; O2SAT 98
[2017-11-06 07:10] VITALS: BP 122/78; PULSE 50; RESP 18; TEMP 36.2; O2SAT 96
[2017-11-06 07:38] LABS: HCT 36.9 % (40.0-50.0); HGB 12.7 g/dL (13.5-17.5); Mean Corp. HGB Concentration 34.4 g/dL (32.0-36.0); Mean Platelet Volume 9.9 fL (8.0-11.0); Platelet Count 266 x1000/uL (130-400); RBC Distribution Width 12.3 % (11.8-14.1); White Blood Cell Count 7.43 k/cumm (4.4-10.8)
[2017-11-06] MEDS: PARoxetine 20 MG TAB 40 MG PO (07:42)
[2017-11-06] MEDS: Omeprazole 20 MG CAPCR 40 MG PO (07:42)
[2017-11-06] MEDS: PARoxetine 10 MG TAB PO (07:42)
[2017-11-06 07:51] LABS: Anion Gap 8.2 mmol/L (3-11); BUN 9 mg/dL (7-18); CO2 28.8 mmol/L (21.0-32.0); CREATININE 0.85 mg/dL (0.70-1.30); Calcium 8.5 mg/dL (8.5-10.1); Chloride 105 mmol/L (98-107); Glucose 91 mg/dL (70-100); Sodium 142 mmol/L (136-145)
[2017-11-06] MEDS: Bacitracin 1 PACKET (10:41)
--- NOTE | 2017-11-06 13:04 | DSE_ITS ---
Date of service: 11/06/17 Time of Service: 12:56 DS: Diagnosis Discharge Diagnosis (1) Ileitis: Status: Acute (2) Vomiting and diarrhea: Status: Acute (3) Hypokalemia due to loss of potassium: Status: Acute (4) GERD (gastroesophageal reflux disease): Status: Chronic (5) Anemia: Status: Chronic Discharge Plan Disposition Patient Disposition: HOME Condition: Improving Discharge Details Reason For Visit: ILEITIS Admit Date/Time: 11/04/17 10:21 Admit Provider: Santiago Douglas Attending Provider: Santiago Douglas Primary Care Provider: [facility] Course Hospital Course: CC: Nausea, Vomiting, Diarrhea HPI: 42-year-old man with a history of GERD, depression, tobacco use and chronic back pain admitted from [facility] emergency room with 3 days of unremitting nausea, and 2 days of vomiting and nonbloody, non-melanotic diarrhea. The patient had been unable to keep anything down. He reported no ill contacts, recent travel, or recent antibiotic use. No history of chronic diarrhea or constipation and no known history of inflammatory bowel disease. In the emergency room his laboratory studies were notable for hypokalemia with a potassium of 2.9 in the setting of diarrhea and vomiting, and a CT scan of the abdomen which was notable for bowel wall swelling in the ileum compatible with ileitis of infectious or inflammatory etiology. Mr. Mcintosh was initially kept n.p.o. His diarrhea initially subsided somewhat, and his diet was advanced to clear liquids, but with rapid return in his symptoms. His diet was downgraded, and he was gently increased to full Liquids, then GI Soft diet which he has tolerated. This morning he reported resolution of diarrhea and a bowel movement with mostly formed stools. His abdominal pain is similiarly imrpved to resolved. Stool Studies are negative for C.Diff and positive for fecal leukocytes. However, stool culture was not performed as unfortunately the sample was sent to outside lab in the incorrect container. This morning Mr. Mcintosh reports swelling and erythema around his IV site on his Right AC Fossa. Noother overnight events were reported. The patient remains afebrile. Hospital Course By Problem List: (1) Ileitis: Differential of infectious versus inflammatory ileitis/enteritis. His diet was advanced yesterday and again today, which he seems to be tolerating well. Stool studies with negative C.Diff, and positive fecal leukocytes as expected, however with stool cultures not performed secondary to placement in the incorrect container. Discussed possibility of infectious vs. inflammatory etiology. Will likely require reimaging, with potential follow-up scope. Discussed with GI, and patient will be scheduled for follow-up at [facility]. Also advised patient to return to hospital if symptoms recur. (2) Hypokalemia In setting of GI Losees. Current potassium normalized with resolution of vomiting and decrease in diarrhea. (3) GERD (gastroesophageal reflux disease): PPI therapy initially held in setting of acute diarrhea, which did not effect his symptoms but worsened his GERD considerably. PPI therapy resumed, diarrhea resolved, and patient is currently asymptomatic. (4) Depression: Stable on current SSRI therapy. Continue home regimen. (5) Anemia: Mild anemia with Heme positive stool in setting of infectious or inflammatory changes. Current H/H stable. (6) Cellulitis Development of a mild cellulitis on the Right antecubital fossa at patient' s IV site. Area was indurated. Under sterile conditions a small area of the induration was punctured but without any purulent material to express. Instructions on topical care provided, included bandaging, topical antibiotics, and warm compresses. Cephalexin prescribed X7 days. Patient also urged to immediately seek care if condition worsened, including development of worsening erythema, induration, oozing of purulent material, or development of fevers. Home Meds and New Rx's Prescriptions: New cephalexin 500 mg capsule 500 mg PO TID 7 Days Qty: 21 RF: 0 Continue oxycodone-acetaminophen 1 TAB tablet 1 tab PO TID PRN PRNRF: 0 omeprazole 20 MG capsule,delayed release(DR/EC) 40 mg PO BID RF: 0 paroxetine HCl 40 MG tablet 50 mg PO DAILY RF: 0 ibuprofen 800 MG tablet 800 mg PO QID PRN PRNQty: 0 RF: 0 nicotine 21 MG/24 HR patch 24 hour 21 mg Transdermal DAILY RF: 0 Discharge Instructions Additional Instructions: Please see your primary doctor within one week of discharge. Please complete your antibiotic course. You should be hearing about a follow-up with the gastroenterologists at [facility]. Stand Alone Forms: Nursing Discharge Form Referrals: GASTROENTEROLOGY,[facility] [OTHER] - (The GI dept at [facility] will contact you with a date and time for your appointment.) Christ Knight [Primary Care Provider] - 11/14/17 3:15 pm Activity:: Activity as Tolerated Equipment/Supplies:: No Equipment Needed Discharge Orders Discharge Orders: Discharge Order (Routine); Ordered 11/06/17 Ordered By: Umesh Kearns Exam Const General: cooperative, comfortable and no acute distress Orientation: alert, awake and oriented x3 Neck Neck: supple Resp Effort & Inspection: normal respiratory effort and able to speak in complete sentences Auscultation: clear to auscultation bilaterally, no rales, no rhonchi and no wheezes Cardio Rate: regular rate Heart Sounds: S1 normal, S2 normal, no gallops, no murmurs and no rubs GI Palpation: soft and tender (mild and improved) in the LLQ, in the RLQ, in the LUQ and in the RUQ Auscultation: normal bowel sounds Skin General skin exam: induration Wounds: wounds noted (Mildly raised, erythematous, indurated area on the right antecubital fossa, measuring approximately 1X1 cm. No surrounding warmth or cellulitic changes.) Neuro General: alert, awake, oriented x3, moves all extremities and no focal motor deficits Extrem General: no clubbing, cyanosis or edema DS: Data Vitals/I&O Vitals and I&O: Vital Signs Temperature 36.2 C L 11/06/17 07:10 Temperature Source Tympanic 11/06/17 07:10 Pulse 50 L 11/06/17 07:10 Pulse Rhythm Regular 11/06/17 07:40 Respiratory Rate 18 11/06/17 07:10 Respiratory Effort Non-Labored 11/06/17 07:40 Respiratory Depth Normal 11/06/17 07:40 Respiratory Pattern Normal 11/06/17 07:40 Blood Pressure 122/78 11/06/17 07:10 Blood Pressure Position Sitting 11/02/17 19:47 Pulse Oximetry 96 11/06/17 07:10 Oxygen Delivery Method Room Air 11/06/17 07:10 Oxygen Flow Rate 0 11/06/17 07:10 Pain Level 1 11/05/17 07:16 Comment 11/05/17 07:16 Intake & Output 11/05/17 11/06/17 11/06/17 23:59 11:59 23:59 Intake Total 820 / 820 240 / 240 Balance 820 / 820 240 / 240 Intake: IV 100 / 100 Oral 720 / 720 240 / 240 Other: Urine Color Yellow Urine Appearance Clear Urine Odor Normal Comment void x 2 since 0147 to now 0650 Stool Size Moderate Stool Characteristics Soft Formed Voiding Methods Toilet Pending studies at discharge: WBC 7.43 k/cumm (4.4-10.8) 11/06/17 06:18 RBC 4.10 m/cumm (4.50-6.00) L 11/06/17 06:18 Hgb 12.7 g/dL (13.5-17.5) L 11/06/17 06:18 Hct 36.9 % (40.0-50.0) L 11/06/17 06:18 MCV 90.0 fL (80-95) 11/06/17 06:18 MCH 31.0 pg (27.0-33.0) 11/06/17 06:18 MCHC 34.4 g/dL (32.0-36.0) 11/06/17 06:18 RDW 12.3 % (11.8-14.1) 11/06/17 06:18 Plt Count 266 x1000/uL (130-400) 11/06/17 06:18 MPV 9.9 fL (8.0-11.0) 11/06/17 06:18 Immature Gran % 0.1 11/02/17 20:00 Neutrophils % 65.6 11/02/17 20:00 Lymphocytes % 22.4 11/02/17 20:00 Monocytes % 10.3 11/02/17 20:00 Eosinophils % 1.5 11/02/17 20:00 Basophils % 0.1 11/02/17 20:00 Absolute Neutrophils 4.77 k/cumm (1.2-6.7) 11/02/17 20:00 Absolute Lymphocytes 1.63 k/cumm (1.2-3.4) 11/02/17 20:00 Absolute Monocytes 0.75 k/cumm (0.11-0.7) H 11/02/17 20:00 Absolute Eosinophils 0.11 k/cumm (0.0-0.7) 11/02/17 20:00 Absolute Basophils 0.01 k/cumm (0.0-0.2) 11/02/17 20:00 Sodium 142 mmol/L (136-145) 11/06/17 06:18 Potassium 4.0 mmol/L (3.5-5.1) 11/06/17 06:18 Chloride 105 mmol/L (98-107) 11/06/17 06:18 Carbon Dioxide 28.8 mmol/L (21.0-32.0) 11/06/17 06:18 Anion Gap 8.2 mmol/L (3-11) 11/06/17 06:18 BUN 9 mg/dL (7-18) 11/06/17 06:18 Creatinine 0.85 mg/dL (0.70-1.30) 11/06/17 06:18 Estimated GFR/1.73 m2 >= 60.00 (mL/min/1.73m2) 11/06/17 06:18 Glucose 91 mg/dL (70-100) 11/06/17 06:18 Calcium 8.5 mg/dL (8.5-10.1) 11/06/17 06:18 Total Bilirubin 0.3 mg/dL (0.2-1.0) 11/02/17 20:00 AST 61 U/L (15-37) H 11/02/17 20:00 ALT 37 U/L (12-78) 11/02/17 20:00 Alkaline Phosphatase 87 U/L (46-116) 11/02/17 20:00 Total Protein 7.7 g/dL (6.4-8.2) 11/02/17 20:00 Albumin 3.5 g/dL (3.4-5.0) 11/02/17 20:00 Lipase 90 U/L (73-393) 11/02/17 20:00 Urine Color Dark yellow (Yellow) 11/03/17 09:57 Urine Clarity Clear 11/03/17 09:57 Urine pH 6.0 (5-8) 11/03/17 09:57 Ur Specific [place] 1.025 (1.005-1.025) 11/03/17 09:57 Urine Protein 100 mg/dL (Negative) H 11/03/17 09:57 Urine Ketones Negative mg/dL (Negative) 11/03/17 09:57 Urine Blood Trace-lysed (Negative) H 11/03/17 09:57 Urine Nitrite Negative (Negative) 11/03/17 09:57 Urine Bilirubin Small (Negative) H 11/03/17 09:57 Urine Urobilinogen 0.2 EU/dL (Up TO 0.2) 11/03/17 09:57 Ur Leukocyte Esterase Negative (Negative) 11/03/17 09:57 Urine RBC Negative (0-2) 11/03/17 09:57 Urine WBC 0-2 HPF (0-5) 11/03/17 09:57 Ur Epithelial Cells Negative HPF (Negative) 11/03/17 09:57 Urine Crystals Many amorphous HPF (Negative) 11/03/17 09:57 Urine Bacteria Negative HPF (Negative) 11/03/17 09:57 Urine Casts 3-5 fine granular LPF (Negative) 11/03/17 09:57 Urine Mucus Trace (Negative) 11/03/17 09:57 Ur Culture Indicated? No 11/03/17 09:57 Urine Glucose Negative mg/dL (Negative) 11/03/17 09:57 C.difficile Tox Ab Neut Cancelled 11/03/17 14:55 Labs on day of discharge: Labs from last 24 hours 11/06/17 11/06/17 11/03/17 06:18 06:18 16:55 WBC 7.43 RBC 4.10 L Hgb 12.7 L Hct 36.9 L MCV 90.0 MCH 31.0 MCHC 34.4 RDW 12.3 Plt Count 266 MPV 9.9 Sodium 142 Potassium 4.0 Chloride 105 Carbon Dioxide 28.8 Anion Gap 8.2 BUN 9 Creatinine 0.85 Estimated GFR/1.73 m2 >= 60.00 Glucose 91 Calcium 8.5 Stool Campylobacter PCR Pending Stool Salmonella PCR Pending Stool Shigella PCR Pending Shiga Toxin (PCR) Pending 11/03/17 16:55 WBC RBC Hgb Hct MCV MCH MCHC RDW Plt Count MPV Sodium Potassium Chloride Carbon Dioxide Anion Gap BUN Creatinine Estimated GFR/1.73 m2 Glucose Calcium Stool Campylobacter PCR Cancelled Stool Salmonella PCR Cancelled Stool Shigella PCR Cancelled Shiga Toxin (PCR) Cancelled Additional Comments EXAM: CT Abdomen and Pelvis With Intravenous Contrast CLINICAL HISTORY: 42 years old, male; Pain; Abdominal pain; Other: Lower abdominal pain. ; Patient HX: Abd pain, vomiting, diarrhea. TECHNIQUE: Axial computed tomography images of the abdomen and pelvis with intravenous contrast. All CT scans at this facility use at least one of these dose optimization techniques: automated exposure control; mA and/or kV adjustment per patient size (includes targeted exams where dose is matched to clinical indication); or iterative reconstruction. Coronal and sagittal reformatted images were created and reviewed. FINDINGS: Lung bases: Dependent changes within the lung bases. ABDOMEN: Liver: Unremarkable. No mass. Gallbladder and bile ducts: Unremarkable. No calcified stones. No ductal dilation. Pancreas: Unremarkable. No mass. No ductal dilation. Spleen: Unremarkable. No splenomegaly. Adrenals: Unremarkable. No mass. Kidneys and ureters: Unremarkable. No solid mass. No hydronephrosis. Stomach and bowel: Circumferential wall thickening of the distal and terminal ileum. No pneumatosis. Mild dilatation with fluid levels within the mid small bowel proximal to the ileum wall thickening. The proximal jejunum is unremarkable. PELVIS: Appendix: No findings to suggest acute appendicitis. Bladder: Unremarkable. No mass. Reproductive: Unremarkable as visualized. ABDOMEN and PELVIS: Intraperitoneal space: Trace fluid within the right lower pelvis. No free air. Bones/joints: No acute fracture. No dislocation. Soft tissues: Unremarkable. Vasculature: Patent superior mesenteric artery. No abdominal aortic aneurysm. Lymph nodes: Unremarkable. No enlarged lymph nodes. IMPRESSION: Ileitis involving the distal and terminal ileum, likely inflammatory or infectious. Ischemic ileitis is not excluded, but less likely.
--- NOTE | 2017-11-06 13:30 | PDOC.CMDIS ---
- If Service Date Differs Date of service: 11/06/17 Time of Service: 13:30 LACE Index Scoring Tool - Questions: Length of Stay (in days): 4 - 6 Acuity (Admit via E.D.?): Yes E.D. Visits: 2 - Answers: Total Score: 9 Risk of Readmission: Low Risk Care Management Discharge Reason for Hospitalization: Nausea, Vomiting, Diarrhea Discharge Plan: Félix will return home today with no services. He will F/U with PCP and plan of care as prescribed. Félix's [facility] will transport. Patient/Family Education Needs: Review DC instructions, any limitations, and discuss Ask Me Three
[2017-11-07 11:28] LABS: Campylobacter PCR SEE COMMENTS; Shiga Toxin PCR SEE COMMENTS; Shigella/Enteroinvasive Ecoli SEE COMMENTS
[2017-11-07 12:00] LABS: Salmonella PCR SEE COMMENTS
== END 2017-11-06 14:04 | disposition home or self-care (01) | DRG 392 ==
LOC: ER 23:08 → MS 23:47
PROVIDERS: Nurse Practitioner; Nurse Practitioner Family; Admitting Provider Internal Medicine; Emergency Provider Emergency Medicine; PCP Internal Medicine; Visit Provider Internal Medicine
DX: K52.89 Other specified noninfective gastroenteritis and colitis (principal); T80.29XA Infection following other infusion, transfusion and therapeutic injection, initial encounter; L03.113 Cellulitis of right upper limb; E87.6 Hypokalemia; F32.9 Major depressive disorder, single episode, unspecified; R19.5 Other fecal abnormalities; G89.29 Other chronic pain; M54.9 Dorsalgia, unspecified; Z79.891 Long term (current) use of opiate analgesic
CPT/HCPCS: 36415; 80048; 80053; 83690; 85027; 87505; 96361; 96365; 96366; 96375; 99219; 99232; 99239; 99285; 74177; 81003; 81015; 83630; 85025; 87230; 87324; 99284; G0378; J1885; J2405; J3480

== ENCOUNTER 2018-06-10 09:27 | Emergency (ER) | payer MEDICARE, SELFPAY ==
[2018-06-10 09:33] VITALS: BP 142/66; PULSE 73; RESP 14; TEMP 36.6; O2SAT 96
[2018-06-10] MEDS: Acetaminophen 500 MG TAB 1000 MG PO (10:03)
--- NOTE | 2018-06-10 10:14 | ED.GENADUL_ITS ---
Discharge Plan Disposition Patient Disposition: HOME Condition: Improving Discharge Details Chief Complaint: Orthopedic Clinical Impression: Fracture of toe, Closed dislocation of toe, Abrasion of knee, Knee swelling, Laceration of finger Primary Care Provider: Christ Knight ED Provider: Naseem Benson Home Meds and New Rx's Prescriptions: Continued omeprazole 20 MG capsule,delayed release(DR/EC) 40 mg PO BID RF: 0 paroxetine HCl 40 MG tablet 50 mg PO DAILY RF: 0 ibuprofen 800 MG tablet 800 mg PO QID PRN PRNQty: 0 RF: 0 oxycodone-acetaminophen [Percocet] 5-325 mg Tablet 2 tab PO Q4H RF: 0 Discharge Instructions Instructions: Toe Fracture (ED), Finger Laceration (ED) Additional Instructions: Monitor wounds for signs of infection including redness, warmth, drainage, increased pain, fevers/chills. If these or other new/worsening symptoms arise please seek care urgently once again. Keep toes beronica taped and in postoperative shoe until evaluated by orthopedics. Call orthopedics tomorrow to schedule follow up appointment, number listed below. Referrals: Galileo Anderson MD [ [facility] STAFF PHYSICIAN] - Medical Decision Making Patient is a 42 year old male presenting today after falling from ladder. No evidence of head trauma, no neck/back pain. Full ROM of cervical spine. Neuro intact. Trauma to left ring finger with near avulsion of superficial tissue. Last tetanus 2011, will update this today. Left knee significant for abrasion, small effusion. No evidence of ligamentous injury, full ROM, able to straight leg raise. Will cleanse and obtain XR to evaluate for bony abnormality. Deformity to righ great toe. Concerned for fx vs. dislocation. Will obtain XR to evaluate. Discussed plan with patient. Will ice and elevate the knee. Wounds cleansed by nursing staff. Flap was put back in place. Offered to trim this back for th epatient but he is happy with how it is currently and would prefer only bandaid at this time. XR reviewed by myself. I do not see acute abnormality in the knee. Great toe is dislocated. I do not see evidence of fx but will obtain post reduction films. Discussed findings with the patient. Discussed risks/benefits of reduction with local anesthetic. He voices understanding and wishes to proceed. Verbal consent obtained. xr reviewd by radiologist: Foot FINDINGS: Bones/joints: There is dorsal dislocation of the first interphalangeal joint. The joint spaces are otherwise normally aligned. No acute fracture is identified. Small calcific densities at the level of the first interphalangeal joint appear corticated and likely represent accessory sesamoids. 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 There are small plantar and small posterior calcaneal osteophytes. Soft tissues: The soft tissues of the first toe are swollen. A tiny radiodensity over the soft tissues at the tip of the fourth toe is of indeterminate chronicity. IMPRESSION: 1. Dorsal dislocation of the first interphalangeal joint without acute fracture identified. 2. Tiny radiodensity in the soft tissues at the tip of the fourth toe, of indeterminate chronicity. Correlate as to whether this may represent an acute posttraumatic foreign body. This does not correlate clinically, likely old Knee FINDINGS: Bones/joints: No acute fracture or dislocation is identified. Soft tissues: The soft tissues, including in the suprapatellar region, appear grossly unremarkable. IMPRESSION: No acute fracture or dislocation identified. Please see procedure note. Patient tolerated well, easy reduction. Will obtain post reduction films. Post reduction film shows continued dislocation. Fracture medially. Please see repeat procedure note. Patietn tolerated well. Capillary refill intact Post reduction films viewed by myself. Continue to note fracture, reduction comlpleted. Toes beronica taped, placed in postoperative shoe. encouraged rest, ice, elevation. Orthopedics f/u, they will call tomorrow to schedule. Advised on new/worsneing symptoms and when to seek care urgently once again. Advised on activities to avoid. Patient has Oxycodone at home as prescribed by PCP. All questions and concerns were addressed, he is in agreement iwth this plan HPI General Mode of arrival: ambulatory . Date/Time Provider Initiated Documentation: 06/10/18 09:47 . Limitations to Documentation: no limitations . Information obtained by: patient, family and RN notes reviewed . HPI Narrative: Patient is a 42 year old male, accompanied by , with c/c of trauma after fall 4 feet from ladder. Reports he was working on a step ladder when it gave way and he fell. Reports landing on his left side. Did not strike his head, no LOC. Endorses chronic back pain but no change in this with recent trauma. Denies altered sensation. No weakness. No loss of bladder or bowel function. Notes laceration to the left ring finger, abrasion to left knee and deformity to right great toe. Reports pain increasing in left knee, feels swollen. Surgical history of everything reconstructed in the left knee, describes trauma to patella with no known ligamentous repairs. Took Ibuprofen this AM for chronic pain and SERVIN which is now resolved. Related Data Home Medications Medication Instructions Recorded Confirmed omeprazole 40 mg PO BID 03/13/14 06/10/18 paroxetine HCl 50 mg PO DAILY 03/13/14 06/10/18 ibuprofen 800 mg PO QID PRN PRN #0 tab 12/13/15 06/10/18 oxycodone-acetaminophen [Percocet] 2 tab PO Q4H 06/10/18 06/10/18 Previous Rx's Medication Instructions Recorded ibuprofen 800 mg PO QID PRN PRN #0 tab 12/13/15 Allergies Allergy/AdvReac Type Severity Reaction Status Date / Time No Known Allergies Allergy Unverified 06/10/18 09:35 General Stated Complaint: Orthopedic TJ: 3 Review of Systems Constitutional Reports as per HPI, Denies chills, Denies fatigue, Denies fever(s), Denies headache(s) and Denies weakness Eyes Reports as per HPI, Denies blurry vision, Denies change in vision and Denies loss of vision ENT Denies abnormal hearing and Denies headache(s) Cardiovascular Reports as per HPI, Denies chest pain and Denies dyspnea Respiratory Reports as per HPI, Denies cough, Denies pain on inspiration, Denies pain with cough and Denies dyspnea Gastrointestinal Reports as per HPI, Denies abdominal pain, Denies nausea and Denies vomiting Genitourinary Reports as per HPI and Denies urinary incontinence Musculoskeletal Reports as per HPI Integumentary/Breasts Reports as per HPI and Denies rash Neurologic Reports as per HPI, Denies abnormal hearing, Denies abnormal movements, Denies abnormal speech, Denies headache(s), Denies lack of coordination, Denies focal weakness, Denies loss of vision, Denies seizure-like activity, Denies paresthesias and Denies weakness Endocrine Denies fatigue PFS Social History Smoking/Tobacco Use Status: Current every day Counseling given: provider counseling Drug use: Never current occupation: Works on farm Do you feel safe at home: Yes Do you feel safe in your relationship?: Yes Exam Const General: cooperative, healthy appearing, comfortable, no acute distress, well developed and well groomed Nutritional Appearance: average body habitus and well nourished Orientation: alert, awake and oriented x3 [facility] Head: normal to inspection, no palpable skull fracture, normocephalic and atraumatic Ears: hearing grossly normal bilaterally, external ears normal and TM's normal bilaterally General nose exam: external nose normal Mouth: oral mucosae normal, lip normal and tongue normal Throat: posterior oropharynx normal Eyes General: appearance normal, both eyes and all related structures Visual Carter: normal visual carter by confrontation Alignment and Position: alignment normal Periorbital: periorbital findings normal Eyelids: eyelids normal Conjunctivae: conjunctivae normal Pupils: PERRL EOM: EOM intact bilaterally Neck Neck: normal visual inspection, full ROM, no lymphadenopathy, no meningeal signs, trachea midline and supple Chest Chest: normal inspection of the chest, normal palpation of entire chest wall, no crepitus and no localized rib tenderness Resp Effort & Inspection: normal respiratory effort, able to speak in complete sentences and no respiratory distress Auscultation: clear to auscultation bilaterally, no rales, no rhonchi and no wheezes Cardio Rate: regular rate Rhythm: regular rhythm Heart Sounds: S1 normal and S2 normal GI Inspection: normal to inspection, no abdominal wall ecchymosis, no edema and non-distended Palpation: soft, no hepatosplenomegaly, not firm, no guarding, no pulsatile masses, not rigid and nontender Auscultation: normal bowel sounds Back/Spine/Pelvis Back: no CVA tenderness Cervical Spine: normal cervical lordosis and cervical ROM normal Thoracic/Lumbar Spine: thoracic and lumbar spine normal to inspection, thoraco- lumbar ROM normal, pain with thoraco-lumbar ROM (reports typical pain with rotation, particularly to the right, unchanged), No thoraco-lumbar spasm and No thoracic spinal tenderness Pelvis: no pain with anterior-posterior compression and no pain with lateral compression Skin Trauma: abrasion (anteriomedial left knee) and laceration (flap laceration, near avulsion superficial left ring finger) Neuro General: alert, awake, oriented x3, gait normal, tone normal and moves all extremities Cranial Nerves: CN's II-XI intact bilaterally Cognition: normal cognition Speech: speech normal Gait: normal gait Motor: muscle tone normal throughout and strength 5/5 throughout Sensory Exam: no sensory deficits noted (no saddle paresthesias) Extrem General: normal capillary refill and no calf tenderness bilaterally Right upper extremity: normal to inspection Left upper extremity: full ROM, normal capillary refill and no joint enlargement; abnormal to inspection (flap as above) Right lower extremity: normal capillary refill, no joint enlargement and foot (altered sensation lateral great toe with 2 point); abnormal to inspection (deformity right great toe), ROM limited (lmited at great toe), no cyanosis and no edema Left lower extremity: hip/thigh Details: normal to inspection, knee Details: tenderness, swelling Location: of the patella, normal ROM, knee ligament exam normal, abrasion and other (small effusion); no ecchymosis, no crepitus, no foreign bodies, no deformity and no unusual warmth and ankle Details: normal to inspection; abnormal to inspection (abrasion to knee as above) Psych Appearance: grossly normal and well kempt Mental Status: mental status grossly normal Speech and Movement: speech and movement normal Course Vital Signs Temperature 36.6 C 06/10/18 09:33 Pulse 73 06/10/18 09:33 Respiratory Rate 14 06/10/18 09:33 Blood Pressure 142/66 H 06/10/18 09:33 Pulse Oximetry 96 06/10/18 09:33 Temperature 36.6 C 06/10/18 09:33 Temperature Source Temporal Artery Scan 06/10/18 09:33 Pulse 73 06/10/18 09:33 Respiratory Rate 14 06/10/18 09:33 Respiratory Effort Non-Labored 06/10/18 09:37 Blood Pressure 142/66 H 06/10/18 09:33 Blood Pressure Position Sitting 06/10/18 09:33 Pulse Oximetry 96 06/10/18 09:33 Oxygen Delivery Method Room Air 06/10/18 09:33 Oxygen Flow Rate 0 06/10/18 09:33 Pain Level 7 06/10/18 09:37 Procedures Orthopedic Joint Reduction Joint #1: Time Out Performed: Yes Side: right Joint Reduction Location: toe Analgesia: digital block Local Anesthesia: Lidocaine 1% Amount of anesthesic used (mL): 3 Technique used: traction/counter-traction Post-reduction neuro exam: other (toe anesthetized) Post-reduction vascular: intact Post Reduction X-Ray Obtained: Yes Post Reduction X-Ray Results: not reduced Splint Applied: No (post op shoe) Patient Tolerated Procedure: well and no complications Joint #2: Time Out Performed: Yes Side: right Joint Reduction Location: toe Analgesia: none Technique used: traction/counter-traction Post-reduction neuro exam: no change Post-reduction vascular: intact and no change Post Reduction X-Ray Obtained: Yes Post Reduction X-Ray Results: reduced Splint Applied: No (beronica tape and postoperative shoe) Patient Tolerated Procedure: well Sign Out Sign Out Data: Sign Out Comment: Care transitioned to Hernan Benson with repeat reduction film pending Last updated by Carly Bolivar PA at 06/10/18 12:02 Sign Out Comment: pt dispo per NORMA Bolivar. sign out unnecessary Last updated by Naseem Benson PA at 06/10/18 12:11
--- NOTE | 2018-06-10 10:42 | DI.RAD_ITS ---
SYMPTOMS/DIAGNOSIS: TRAUMA, RT GREAT TOE DEFORMITY, THEN POST REDUCTION FILMS LEFT KNEE: Three views. No acute fracture or dislocation is seen. The soft tissues are unremarkable. IMPRESSION: No acute abnormality. RIGHT FOOT: Three views. There is a dorsal dislocation at the interphalangeal joint of the great toe. There are osseous fragments seen at the lateral aspect of the base of the distal phalanx of the great toe likely reflecting mildly displaced fracture fragments. There is soft tissue swelling of the great toe. There is radiopaque density in the terminal soft tissues of the right fourth toe which appears chronic. No other acute fracture or dislocation is seen. IMPRESSION: 1. Dorsal dislocation of the interphalangeal joint of the right great toe. 2. Tiny osseous densities at the medial aspect of the base of the distal phalanx of the great toe consistent with the fracture. RIGHT GREAT TOE AT 11:33 AM: Multiple views. Comparison with examination from earlier in the day. Despite reported attempts, there is persistent dorsal dislocation of the interphalangeal joint of the right great toe. There is also minimally comminuted and displaced fracture involving the lateral aspect of the base of the distal phalanx of the right great toe. Soft tissue swelling is present of the great toe. IMPRESSION: 1. Persistent dorsal dislocation at the interphalangeal joint of the right great toe. 2. Minimally displaced and comminuted fracture involving the lateral aspect of the base of the distal phalanx of the great toe. RIGHT GREAT TOE AT 12:00 PM: Three views. There has been successful reduction of the interphalangeal joint dislocation of the great toe. Alignment appears anatomic. There is a nondisplaced fracture again seen of the lateral aspect of the base of the distal phalanx of the right great toe. There is associated soft tissue swelling. IMPRESSION: 1. Successful reduction of the interphalangeal joint of the right great toe. 2. Nondisplaced fracture involving the lateral aspect of the distal phalanx of the right great toe.
[2018-06-10] MEDS: Lidocaine 1% Multi-Dose 50 ML VIAL IJ (11:00)
--- NOTE | 2018-06-10 11:24 | DI.VRAD_ITS ---
EXAM: XR Left Knee, 4 or more Views EXAM DATE/TIME: 06/10/2018 10:00 AM CLINICAL HISTORY: 42 years old, male; Pain; Left; Patient HX: Knee trauma today, fall from ladder TECHNIQUE: Imaging protocol: XR Left knee. Views: 4 or more views. COMPARISON: No relevant prior studies available. FINDINGS: Bones/joints: No acute fracture or dislocation is identified. Soft tissues: The soft tissues, including in the suprapatellar region, appear grossly unremarkable. IMPRESSION: No acute fracture or dislocation identified. Dictated and Authenticated by: Stephon Stuart MD. Ordering:AVIVA Carroll MD
--- NOTE | 2018-06-10 11:24 | DI.VRAD_ITS ---
EXAM: XR Right Foot Complete, 3 or more Views EXAM DATE/TIME: 06/10/2018 10:00 AM CLINICAL HISTORY: 42 years old, male; Pain; Toes; Right; Patient HX: Foot trauma today, fall from ladder TECHNIQUE: Imaging protocol: XR Right foot. Views: 3 or more views. COMPARISON: No relevant prior studies available. FINDINGS: Bones/joints: There is dorsal dislocation of the first interphalangeal joint. The joint spaces are otherwise normally aligned. No acute fracture is identified. Small calcific densities at the level of the first interphalangeal joint appear corticated and likely represent accessory sesamoids. 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 There are small plantar and small posterior calcaneal osteophytes. Soft tissues: The soft tissues of the first toe are swollen. A tiny radiodensity over the soft tissues at the tip of the fourth toe is of indeterminate chronicity. IMPRESSION: 1. Dorsal dislocation of the first interphalangeal joint without acute fracture identified. 2. Tiny radiodensity in the soft tissues at the tip of the fourth toe, of indeterminate chronicity. Correlate as to whether this may represent an acute posttraumatic foreign body. Dictated and Authenticated by: Stephon Stuart MD. Ordering:AVIVA Carroll MD
--- NOTE | 2018-06-10 11:50 | DI.VRAD_ITS ---
EXAM: XR Right First Toe(s), 2 or More Views EXAM DATE/TIME: 06/10/2018 11:19 AM CLINICAL HISTORY: 42 years old, male; Pain; Toes; Right; Additional info: Post reduction TECHNIQUE: Imaging protocol: XR Right first toe. Views: Minimum 2 views. COMPARISON: CR XR foot RT complete 06/10/2018 10:32 AM FINDINGS: Bones/joints: Despite reported attempted reduction of the first interphalangeal joint, there is persistent dorsal dislocation. Now apparent is a small, minimally displaced fracture at the lateral corner of the base of the first distal phalanx. No other fracture is identified. The joint spaces are otherwise normally aligned. Soft tissues: There is again associated soft tissue swelling. There is again a tiny radiodensity in the soft tissues at the tip of the fourth toe. IMPRESSION: Persistent dorsal dislocation of the first interphalangeal joint, with a small, minimally displaced fracture at the lateral base of the first distal phalanx. Dictated and Authenticated by: Stephon Stuart MD. Ordering:AVIVA Carroll MD
--- NOTE | 2018-06-10 12:16 | DI.VRAD_ITS ---
EXAM: XR Right Toe(s), 2 or More Views EXAM DATE/TIME: 06/10/2018 11:54 AM CLINICAL HISTORY: 42 years old, male; Pain; Toes; Right; Additional info: Post reduction x2 TECHNIQUE: Imaging protocol: XR Right toes. Views: Minimum 2 views. COMPARISON: CR XR toe RT great 06/10/2018 11:33 AM FINDINGS: Bones/joints: There has been interval relocation of the previous dislocation of the first interphalangeal joint, which is now normally aligned. Fracture is again seen at the lateral base of the first distal phalanx. No new fracture is identified. Soft tissues: There is again associated soft tissue swelling. Tiny radiodensity is again present the soft tissues of the fourth toe. IMPRESSION: Interval relocation of previous first interphalangeal joint dislocation since earlier the same day. Small fracture again at the lateral base of the first distal phalanx. Dictated and Authenticated by: Stephon Stuart MD. Ordering:AVIVA Carroll MD
== END 2018-06-10 12:32 | disposition home or self-care (01) ==
PROVIDERS: Emergency Provider Physician Assistant; PCP Internal Medicine
DX: S93.111A Dislocation of interphalangeal joint of right great toe, initial encounter (principal); S80.212A Abrasion, left knee, initial encounter; M25.461 Effusion, right knee; S61.215A Laceration without foreign body of left ring finger without damage to nail, initial encounter; W11.XXXA Fall on and from ladder, initial encounter
CPT/HCPCS: 26770; 73562; 90471; 99284; 73630; 73660

== ENCOUNTER → 2018-06-21 08:16 | Outpatient (BNVA) | payer MEDICARE, SELFPAY | PROVIDERS: PCP Internal Medicine; Referring Provider Family Medicine; Visit Provider Orthopaedic Surgery | DX: S92.402A Displaced unspecified fracture of left great toe, initial encounter for closed fracture (principal); X58.XXXA Exposure to other specified factors, initial encounter | CPT/HCPCS: 99201; 99212 ==

== ENCOUNTER 2019-05-10 16:05 | Emergency (ER) | payer MEDICARE, MEDICAID, SELFPAY ==
--- NOTE | 2019-05-10 16:09 | ED.GENADUL_ITS ---
Discharge Plan Disposition Patient Disposition: HOME Condition: Good Discharge Details Chief Complaint: Trauma Clinical Impression: Muscle spasm, Contusion of right shoulder Primary Care Provider: Christ Knight ED Provider: Carly Bolivar Home Meds and New Rx's Prescriptions: New diazepam [Valium] 5 mg tablet 5 mg PO TID PRN (Reason: muscle spasm) Qty: 10 RF: 0 Narcan 4 mg/actuation spray,non-aerosol 4 mg MAGALYS Q2-3M PRN (Reason: opioid overdose) Qty: 2 RF: 0 Continued omeprazole 20 MG capsule,delayed release(DR/EC) 40 mg PO BID RF: 0 paroxetine HCl 40 MG tablet 50 mg PO HS RF: 0 oxycodone-acetaminophen [Percocet] 5-325 mg Tablet 1 tab PO TID PRNRF: 0 pregabalin 50 mg Capsule 50 mg PO BID RF: 0 Discharge Instructions Instructions: Contusion in Adults (ED), Muscle Spasm (ED) Additional Instructions: Encourage water intake. Please continue with Tylenol and ibuprofen as needed for discomfort. Please take as instructed on the bottle. You may use Valium as prescribed to help with muscle spasm. Please take this only as prescribed and as needed. Do not drive will take this medication. You may use your sling to help with discomfort but please take this off and perform passive range of motion stretching exercises discussed. Heat may also help with your muscle spasm. Please call primary care on Monday to discuss follow-up appointment. If you develop fever/chills, increased pain or the new/worsening symptoms to seek care urgently once again. Referrals: Christ Knight [Primary Care Provider] - Medical Decision Making Patient is a pleasant 43-year-old [id number] male presenting with chief complaint of right shoulder pain. He reports a prior to arrival he was trying to heard a pig when the pig spooked and knocked him over causing him to land on his right side. He reports that he felt his shoulder ripped off. He states that 3 hours after the initial incident, he continues to have pain. He has not taken anything for his discomfort. Patient is chronically on Percocet for his back pain. She states that he did not take that after the incident today. His pain is primarily posterior and he does have notable muscle spasm of the right trapezius. He denies any numbness or tingling. Do not strike his head, no loss of conscious. Denies any neck or back pain. Denies any shortness of breath or chest pain. Lungs are clear, no pain over midline of his neck or spine. He is full range of motion. Forward to motion of the elbow, wrist, hand. He does not want to move the shoulder secondary to discomfort. Maximal pain is over the trapezius and right scapula. Plan for imaging of the right shoulder given the discomfort. Will give Tylenol, ibuprofen, Valium and a Lidoderm patch. Discussed this plan the patient is in agreement. XR reviewed by radiologist: FINDINGS: Bones/joints: No acute fracture or dislocation. Soft tissues: There is no radiopaque foreign body.There is no gas in the soft tissue. IMPRESSION: No acute abnormality demonstrated. At this point, I feel the patient's pain is more likely from muscle spasm and contusion then other more serious underlying etiology. He is so tender at this point is difficult to evaluate the rotator cuff. I feel that this could be completed as an outpatient once his initial discomfort has subsided. Encourage rest, ice, elevation. Tylenol and/or ibuprofen as needed for discomfort. He is chronically on Percocet. He has been on Percocet for the past 9 years. I did advise muscle relaxant will continue the patient has an outpatient Valium. I do feel that as this is a chronic thing for him to be on narcotics, this mixing medications is likely safe however, I will also prescribe Narcan per state recommendations. I did advise that he should not take the Percocet and Valium together. I did advise that he perform passive range of motion exercises, these were demonstrated for the patient. Patient will be fitted with a sling to help with discomfort but advised that he take this off as much as possible and try to move the arm frequently. He was given strict return precautions. Advised that he contact his primary care on Monday to discuss follow-up appointment. All of his questions or concerns were addressed and he is in agreement this plan. HPI General Mode of arrival: ambulatory . Date/Time Provider Initiated Documentation: 05/10/19 16:09 . Limitations to Documentation: no limitations . Information obtained by: patient and RN notes reviewed . History of Present Illness 43 year old M presents to the emergency department with the chief complaint of right shoulder pain, described as severe, with intensity rated at 8. Quality is described as aching, and is localized to the right and upper extremity. Patient reports no radiation. Patient started experiencing this hour(s) (3) and it has been constant. Immobilization improves symptom(s), Movement worsens symptoms . Patient notes no other symptoms.. Patient did receive the following treatments prior to arrival, none Related Data Home Medications Medication Instructions Recorded Confirmed omeprazole 40 mg PO BID 03/13/14 05/10/19 paroxetine HCl 50 mg PO HS 03/13/14 05/10/19 oxycodone-acetaminophen [Percocet] 1 tab PO TID PRN 06/10/18 05/10/19 diazepam [Valium] 5 mg PO TID PRN #10 tab 05/10/19 naloxone [Narcan] 4 mg MAGALYS Q2-3M PRN #2 each 05/10/19 pregabalin 50 mg PO BID 05/10/19 05/10/19 Previous Rx's Medication Instructions Recorded diazepam [Valium] 5 mg PO TID PRN #10 tab 05/10/19 naloxone [Narcan] 4 mg MAGALYS Q2-3M PRN #2 each 05/10/19 Allergies Allergy/AdvReac Type Severity Reaction Status Date / Time house dust mite AdvReac Intermediate nasal Unverified 05/10/19 16:32 congestion mold AdvReac Mild rhinitis, Verified 05/10/19 16:32 sneezing General TJ: 3 Review of Systems Constitutional Constitutional: Reports as per HPI, Denies chills, Denies fever(s), Denies headache(s) and Denies weakness ENT Ears, Nose, Mouth, and Throat: Denies headache(s) Cardiovascular Cardiovascular: Reports as per HPI Respiratory Respiratory: Reports as per HPI and Denies cough Musculoskeletal Musculoskeletal: Reports as per HPI and Denies tingling Integumentary/Breasts Skin/Breast: Reports as per HPI, Denies rash and Denies wounds Neurologic Neurologic: Reports as per HPI, Denies headache(s), Denies tingling, Denies paresthesias and Denies weakness [facility] Social History Smoking/Tobacco Use Status: Current every day Tobacco Type: cigarettes Years smoked: 20 Counseling given: provider counseling Alcohol Intake: former Drug use: Never current occupation: Works on farm Do you feel safe at home: Yes Do you feel safe in your relationship?: Yes Exam Const General: cooperative, healthy appearing, comfortable, no acute distress, well developed and well groomed Nutritional Appearance: average body habitus and well nourished Orientation: alert and awake Neck Neck: normal visual inspection, full ROM, no lymphadenopathy, no meningeal signs, trachea midline, supple, no anterior neck swelling and nontender Chest Chest: normal inspection of the chest, normal palpation of entire chest wall, no crepitus, no localized rib tenderness and no tenderness Resp Effort & Inspection: normal respiratory effort, able to speak in complete sentences and no respiratory distress Auscultation: clear to auscultation bilaterally Cardio Rate: regular rate Rhythm: regular rhythm Heart Sounds: S1 normal and S2 normal Skin Trauma: abrasion (Two 2mm superficial abrasions lateral right shoulder) Neuro General: patient alert and patient awake Cognition: normal cognition Speech: speech normal Gait: normal gait Motor: muscle tone normal throughout Sensory Exam: no sensory deficits noted Extrem Right upper extremity: normal to inspection, normal capillary refill, no joint enlargement, shoulder/upper arm Details: normal to inspection, tenderness Location: of the scapula; not of the clavicle, not of the A-C joint, not of the proximal humerus, not over the coracoid process, not over the biceps tendon and not over the subacromial bursa, axillary nerve sensory function normal and abrasion; no swelling, ROM limited, no lacerations, no ecchymosis, no crepitus and no deformity, elbow/forearm Details: normal to inspection and normal ROM; no tenderness and no swelling, wrist Details: normal to inspection, normal ROM, normal vascular exam and radial pulse present; no tenderness and no swelling and hand Details: normal to inspection, normal capillary refill, neuromotor exam normal, neurosensory exam normal and vascular exam Details: radial pulse present and normal capillary refill; no tenderness; ROM limited (limited ROM of right shoulder), no cyanosis and no edema Psych Appearance: grossly normal and well kempt Mental Status: mental status grossly normal Speech and Movement: speech and movement normal
[2019-05-10 16:14] VITALS: BP 134/80; PULSE 92; TEMP 37; O2SAT 96
--- NOTE | 2019-05-10 16:41 | DI.RAD_ITS ---
EXAM: <XR SHOULDER RT COMPLETE 2+V> CLINICAL HISTORY: <FOOSH> TECHNIQUE: COMPARISON: No exams were available for comparison FINDINGS: Three views were obtained. There are mild degenerative changes at the acromioclavicular joint. Ther e is no evidence of acute fracture or dislocation. IMPRESSION:
[2019-05-10] MEDS: Acetaminophen 500 MG TAB 1000 MG PO (16:52)
[2019-05-10] MEDS: diazePAM 5 MG TAB PO (16:52)
[2019-05-10] MEDS: Ibuprofen 600 MG TAB PO (16:52)
[2019-05-10] MEDS: Lidocaine 5% Patch 1 PATCH TP (16:52)
[2019-05-10 17:25] VITALS: BP 108/75; PULSE 94; RESP 20; TEMP 36.9; O2SAT 93
--- NOTE | 2019-05-10 17:27 | DI.VRAD_ITS ---
PROCEDURE INFORMATION: Exam: XR Right Shoulder Exam date and time: 05/10/2019 5:21 PM Age: 43 years old Clinical indication: Injury or trauma; Fall; Initial encounter; Blunt trauma (contusions or hematomas; Shoulder; Right; Patient HX: Foosh TECHNIQUE: Imaging protocol: XR Right shoulder. Views: 2 or more views. COMPARISON: No relevant prior studies available. FINDINGS: Bones/joints: No acute fracture or dislocation. Soft tissues: There is no radiopaque foreign body.There is no gas in the soft tissue. IMPRESSION: No acute abnormality demonstrated. Dictated and Authenticated by: Stephon Pate MD. Ordering:AVIVA Carroll MD
== END 2019-05-10 18:11 | disposition home or self-care (01) ==
PROVIDERS: Emergency Provider Physician Assistant; PCP Internal Medicine
DX: S40.011A Contusion of right shoulder, initial encounter (principal); M62.838 Other muscle spasm; W55.42XA Struck by pig, initial encounter
CPT/HCPCS: 99283; 73030; L3650

== ENCOUNTER 2019-11-15 08:43 | Outpatient (REF) | payer MEDICARE, SELFPAY ==
[2019-11-15 21:47] LABS: ALT 28 U/L (16-63); AST 18 U/L (15-37); Albumin 4.1 g/dL (3.4-5.0); Alkaline Phosphatase 70 U/L (46-116); Anion Gap 6.4 mmol/L (3-11); BUN 16 mg/dL (7-18); CO2 27.6 mmol/L (21.0-32.0); CREATININE 0.94 mg/dL (0.70-1.30); Calcium 8.8 mg/dL (8.5-10.1); Calculated LDL 149 mg/dL (<100); Chloride 108 mmol/L (98-107); Cholesterol 201 mg/dL (<200); Glucose 105 mg/dL (74-106); HDL Cholesterol 35 mg/dL (40-60); Potassium 3.9 mmol/L (3.5-5.1); Sodium 142 mmol/L (136-145); Total Protein 7.3 g/dL (6.4-8.2); Triglyceride 89 mg/dL (<150)
[2019-11-15 22:07] LABS: Bilirubin, Total 0.2 mg/dL (0.2-1.0)
== END 2019-11-15 09:03 ==
LOC: NCHCN 08:43
PROVIDERS: PCP Internal Medicine; Visit Provider Family Medicine
DX: R53.83 Other fatigue (principal); R79.89 Other specified abnormal findings of blood chemistry; G25.81 Restless legs syndrome
CPT/HCPCS: 80053; 80061

== ENCOUNTER 2020-02-05 00:39 | Outpatient (CLI) | payer MEDICARE, MEDICAID, SELFPAY ==
--- NOTE | 2020-02-05 | DI.MRI_ITS ---
EXAM: MR LUMBAR SPINE WO CLINICAL HISTORY: CHRONIC LOW BACK PAIN,M54.5,H/O L4-S1 FUSION. TECHNIQUE: Multiplanar multisequence MRI of the Lumbar spine was performed. COMPARISON: MR [facility] from 03/18/2011 FINDINGS: Bones: The last intervertebral disc space is designated the L5/S1 level for the numbering purpose of this examination. The vertebral body heights are well maintained. Alignment is satisfactory. Degene rative endplate signal changes are seen from T12-L1 through L3-L4. There is an L4-5 disc fusion. Spi nal rods extend from L4-S1 with pedicle screws at L4, L5 and S1. Cord: The conus tip ends at the L1 level. It is of normal size and signal intensity. T12-L1: No disc herniations or bulges are present. No central spinal canal or neural foraminal stenos is. L1-2: No disc herniations or bulges are present. No central spinal canal or neural foraminal stenosis . L2-3: No disc herniations or bulges are present. No central spinal canal or neural foraminal stenosis . L3-4: There is a mild diffuse disc bulge. Mild narrowing of the central spinal canal is noted.No sig nificant neural foraminal stenosis. L4-5: No disc herniations or bulges are present. No significant central spinal canal stenosis.Evaluat ion of the neural foramen is somewhat limited due to the artifact from the pedicle screws, but no sig nificant neural foraminal stenosis is seen. L5-S1: There is a mild diffuse disc bulge. No central spinal canal stenosis is present.Evaluation of the neural foramen is somewhat limited due to the artifact from the pedicle screws, but no significa nt neural foraminal stenosis is seen. Soft tissues: The visualized SI joints and sacrum are well maintained. The paraspinal soft tissues ar e unremarkable. IMPRESSION: 1. Posterior spinal surgery from L4 through S1. 2. Degenerative changes at L3-4 causing mild narrowing of the central spinal canal. DATA REPOSITORY:
== END 2020-02-05 00:59 ==
PROVIDERS: PCP Family Medicine; Visit Provider Family Medicine
DX: M47.816 Spondylosis without myelopathy or radiculopathy, lumbar region (principal); M48.061 Spinal stenosis, lumbar region without neurogenic claudication; Z98.1 Arthrodesis status
CPT/HCPCS: 72148

== ENCOUNTER 2020-03-13 02:35 | Outpatient (CLI) | payer MEDICARE, MEDICAID, SELFPAY ==
--- NOTE | 2020-03-13 09:30 | DI.CT_ITS ---
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 TECHNIQUE: Imaging Protocol: Axial computed tomography images with coronal and sagittal reformatted images were created and reviewed. No IV Contrast COMPARISON: CT SINUS CT WITHOUT CONTRAST from 04/24/[address] WITHOUT CONTRAST from 04/24/2017 FINDINGS: MAXILLARY SINUSES: There is surgical defect again noted in the medial wall of the right maxillary sinus. There is mild mucosal thickening in the floor of the maxillary sinus, less than previously present. No fluid level therein. The left maxillary sinus exhibits prominent circumferential mucosal thickening, more so than previous and with a small amount of fluid therein. There is no surgical defect on the left side and no evide nce of bone dehiscence. OSTIOMEATAL UNITS: Right ostiomeatal unit has been excised. The left ostiomeatal unit contains some mucosal thickening-mucus but otherwise patent. ETHMOIDAL AIR CELLS: Some mucosal thickening. SPHENOID SINUSES: Mucosal thickening noted in the smaller-left sphenoid sinus. The right sphenoid si nus is clear. FRONTAL SINUSES: Well aerated. No mucosal thickening nor fluid levels. NASAL SEPTUM AND TURBINATES:Nasal septum is midline with no evidence of significant nasal septal spur . There is nitesh bullosa of right middle turbinate Visualized mastoid air cells are clear. No obvious orbital findings. IMPRESSION: Compared to the prior CT scan of April 2017 there is again noted evidence of endoscopic surgery on th e right side with some improvement in the appearance of the right maxillary sinus. There is increased circumferential mucosal thickening now evident in the left maxillary sinus, associ ated with small amount of fluid. No associated bone dehiscence. Other mild findings as above. RADIATION DOSE DELIVERED: 122.89mGy.cm Total DLP DATA REPOSITORY: All CT scans at this facility are submitted to the National Radiology Data Registry (NRDR) Dose Index Registry (DIR) with the [employer] ([employer]). RADIATION OPTIMIZATION: All CT scans at this facility use at least one of these dose optimization te chniques: automated exposure control; mA and/or kV adjustment per patient size (includes targeted exa ms where dose is matched to clinical indication); or iterative reconstruction.
== END 2020-03-13 02:55 ==
PROVIDERS: PCP Family Medicine; Visit Provider Physician Assistant
DX: J32.0 Chronic maxillary sinusitis (principal)
CPT/HCPCS: 70486

== ENCOUNTER 2020-05-12 15:24 | Outpatient (REF) | payer MEDICARE, MEDICAID, SELFPAY ==
[2020-05-12 16:27] LABS: Abs Immature Grans 0.03 10^3/uL (0.0-0.06); Absolute Basophil Count 0.04 10^3/uL (0.0-0.2); Absolute Eosinophil Count 0.38 10^3/uL (0.0-0.7); Absolute Lymphocyte Count 2.15 10^3/uL (1.2-3.4); Absolute Monocyte Count 0.65 10^3/uL (0.1-0.8); Absolute Neutrophil Count 4.53 10^3/uL (1.2-6.7); Basophils % 0.5; Eosinophils % 4.9; HCT 44.9 % (40.0-50.0); HGB 14.7 g/dL (13.5-17.5); Immature Grans % 0.4; Lymphocytes % 27.6; MCH 30.1 pg (27.0-33.0); MCHC 32.7 % (32.0-36.0); MCV 91.8 fL (80-95); MPV 9.7 fL (8.0-11.0); Monocytes % 8.4; Neutrophils % 58.2; Nucleated RBC 0 %; Platelet Count 308 10^3/uL (130-400); RBC 4.89 10^6/uL (4.36-5.78); RDW 12.4 % (11.8-14.1); RDW-SD 42.1 fL; WBC 7.78 10^3/uL (4.4-10.8)
[2020-05-12 16:42] LABS: ALT 26 U/L (16-63); AST 20 U/L (15-37); Albumin 4.1 g/dL (3.4-5.0); Alkaline Phosphatase 77 U/L (46-116); Anion Gap 5.6 mmol/L (3-11); BUN 16 mg/dL (7-18); Bilirubin, Total 0.2 mg/dL (0.2-1.0); CO2 30.4 mmol/L (21.0-32.0); Calcium 9.3 mg/dL (8.5-10.1); Chloride 105 mmol/L (98-107); Glucose 122 mg/dL (74-106); Potassium 5.7 mmol/L (3.5-5.1); Sodium 141 mmol/L (136-145); Total Protein 7.6 g/dL (6.4-8.2)
[2020-05-13 11:07] LABS: COVID-19 RT-PCR UVMMC Result Negative (Negative)
[2020-05-14 04:35] LABS: Vitamin D 25 Total 29.6 ng/mL (30-100)
== END 2020-05-12 15:25 | disposition home or self-care (01) ==
LOC: NCHCN 15:24
PROVIDERS: PCP Family Medicine; Visit Provider Family Medicine
DX: R53.83 Other fatigue (principal); R59.0 Localized enlarged lymph nodes; Z20.822 Contact with and (suspected) exposure to COVID-19; E55.9 Vitamin D deficiency, unspecified
CPT/HCPCS: 80053; 82306; U0003; 85025

== ENCOUNTER 2020-10-12 22:35 | Emergency (ER) | payer MEDICARE, MEDICAID, SELFPAY ==
[2020-10-12] VITALS (15 sets, daily range): BP systolic 105–121; BP diastolic 70–81; PULSE 110–133; RESP 12–22; TEMP 36.6; O2SAT 89–93
--- NOTE | 2020-10-12 22:30 | RT.EKG_ITS ---
APPROVED REPORT Exam: Resting ECG Reason for Exam: chest tightness Patient Location: E HR:130 bpm ECG Measurements Heart Rate 130 AXIS SD 159 P 45 QRSd 80 QRS 26 QT 293 T 49 QTc 432 Conclusion Sinus tachycardia...rate> 99
--- NOTE | 2020-10-12 22:45 | DI.RAD_ITS ---
Exam(s) XR PORTABLE CHEST AP EXAM: XR PORTABLE CHEST AP CLINICAL HISTORY: CP TECHNIQUE: 2D digital imaging was performed. COMPARISON: CR CHEST 2 VIEWS PA,LAT from 03/16/2014 CR CHEST 2 VIEWS PA,LAT from 03/16/2014 FINDINGS: MEDIASTINUM: Normal. HEART: Normal. PULMONARY VASCULATURE: Normal. LUNGS: Clear. PLEURAL SPACE: No pleural effusion or pneumothorax. BONE:Within normal limits for the patient's age. OTHER FINDINGS:Normal. IMPRESSION: No acute pulmonary findings. DATA REPOSITORY: RADIATION DOSE DELIVERED:
[2020-10-12] MEDS: Lactated Ringers 1,000 ML 1000 ML IV (22:50)
--- NOTE | 2020-10-12 22:54 | ED.GENADUL_ITS ---
Discharge Plan Disposition Patient Disposition: HOME Condition: Stable Discharge Details Clinical Impression: Panic attack, Insomnia Primary Care Provider: Lenin Santiago ED Provider: Stephon Burt Home Meds and New Rx's Prescriptions: Continued omeprazole 20 MG capsule,delayed release(DR/EC) 40 mg PO BID RF: 0 paroxetine HCl 40 MG tablet 50 mg PO HS RF: 0 oxycodone-acetaminophen [Percocet] 5-325 mg Tablet 1 tab PO TID PRNRF: 0 pregabalin 50 mg Capsule 50 mg PO BID RF: 0 Discharge Instructions Instructions: Panic Attack (ED) Additional Instructions: follow up with your primary care provider to discuss treatment options for your sleep difficulties if you feel more ill, have difficulty breathing or persistent vomit return to the emergency department Discharge Data Discharge Date/Time-TO BE ENTERED AT DEPARTURE: 10/13/20 01:13 Medical Decision Making <NORMA Long - Last Filed: 10/15/20 00:06> Patient is a pleasant 45-year-old male presents today with chief complaint of chest pain, muscle spasms and anxiety. He reports that prior to arrival he was turning off the TV when he suddenly developed chest discomfort, muscle spasm. At the time EMS arrived they reported that patient was appearing to have someone to be carpopedal spasms. Patient was very anxious. They gave him 2 of Versed and patient is now much calmer. They state when they picked him up his heart rate was initially in the 170s. Patient denies any cardiac history. No familial history. He denies feeling short of breath. However, EMS reports that he was quite tachypneic. He indicates the left central chest as area of maximal discomfort. Pain nonradiating. Has not had pain like this historically. Patient also reports having had notable marijuana few hours prior to onset of symptoms. On exam, patient appears fairly sedate. He is baseline for the first.. He is easily arousable and reports that he is having diffuse discomfort. Occasionally appears that the muscle spasms of his lower extremities but no fasciculations. No focal weakness. Patient tachycardic with a heart rate in the 120s. Aside from tachycardia, I do not appreciate any abnormalities on auscultation. Lungs are clear in all cort[place]. No calf tenderness. Pupils are equal round and reactive. Previous membranes are dry. Differentials at this time are quite broad. I did consider cardiac source. His EKG shows sinus tachycardia. He did not have a cheaper EMS report either. Patient has no personal or familial history of cardiac disease. Considered metabolic derangement, anxiety, ingestion. We did discuss that this could be associated with his marijuana ingestion. at bedside. She reports that at home he would keep bending over, screaming, and hyperventilating. XR reviewed by radiologist: FINDINGS: Lungs: Unremarkable. No consolidation. Pulmonary vessels are not congested. Pleural spaces: Unremarkable. No pleural effusion. No pneumothorax. Heart/Mediastinum: Unremarkable. No cardiomegaly. Bones/joints: Mild right apex curvature noted in the thoracic spine. IMPRESSION: No acute cardiopulmonary abnormality. At the end of my shift, care transitioned to Dr. Burt with labs, reassessment and disposition pending. <Stephon Burt MD - Last Filed: 10/13/20 02:10> pt felt anxious so was given 1mg ativan with improvement. Labs unremarkable including delta troponin . He is stable, no complaints currently , though feels tired. Apparently hasn't slept in a few days due to insomnia which he has c hronically and under a lot of stress recently, no si/hi. Suspect panic attack vs stress reaction to lack of sleep, social stressors and drug use. He is caox4. No si/hi per family. Will d/c and he will f/u with pcp, return precautions given Lab Data Lab results reviewed: Yes I reviewed the patient's lab results. HPI <NORMA Long - Last Filed: 10/15/20 00:06> General Mode of arrival: EMS . Date/Time Provider Initiated Documentation: 10/12/20 22:35 . Limitations to Documentation: no limitations . Information obtained by: patient, EMS and RN notes reviewed . History of Present Illness 45 year old M presents to the emergency department with the chief complaint of CP, muscle spasms, anxiety, described as moderate, with intensity rated at 6. Quality is described as aching (reports spasms and pain everywhere), Patient started experiencing this minute(s) and it has been constant. Medication improves symptom(s), (Versed) No exacerbating factors reported . Patient notes chest pain; denies cough, fever/chills, loss of appetite, nausea/vomiting, rash, shortness of breath and weakness. Patient did receive the following treatments prior to arrival, other (Versed) Related Data Home Medications Medication Instructions Recorded Confirmed omeprazole 40 mg PO BID 03/13/14 10/12/20 paroxetine HCl 50 mg PO HS 03/13/14 10/12/20 oxycodone-acetaminophen [Percocet] 1 tab PO TID PRN 06/10/18 10/12/20 pregabalin 50 mg PO BID 05/10/19 05/10/19 Allergies Allergy/AdvReac Type Severity Reaction Status Date / Time house dust mite AdvReac Intermediate nasal Unverified 10/12/20 22:48 congestion mold AdvReac Mild rhinitis, Verified 10/12/20 22:48 sneezing General Stated Complaint: GenMedical TJ: 2 Review of Systems <NORMA Long - Last Filed: 10/15/20 00:06> Constitutional Constitutional: Reports as per HPI, Denies chills, Denies fever(s) and Denies headache(s) ENT Ears, Nose, Mouth, and Throat: Denies dizziness and Denies headache(s) Cardiovascular Cardiovascular: Reports as per HPI, Reports chest pain at rest, Denies lightheadedness, Reports palpitations, Denies dyspnea and Denies dyspnea on exertion Respiratory Respiratory: Reports as per HPI, Denies chest congestion, Denies cough, Denies pain on inspiration, Denies pain with cough, Denies dyspnea, Denies dyspnea on exertion and Denies wheezing Musculoskeletal Musculoskeletal: Reports as per HPI Integumentary/Breasts Skin/Breast: Reports as per HPI and Denies rash Neurologic Neurologic: Reports as per HPI, Denies dizziness and Denies headache(s) Endocrine Endocrine: Reports palpitations Allergic/Immunologic Allergic/Immunologic: Denies wheezing PFSH <NORMA Long - Last Filed: 10/15/20 00:06> Social History Smoking/Tobacco Use Status: Current every day Tobacco Type: cigarettes Years smoked: 20 Counseling given: provider counseling Smoking risk assessment performed?: Yes Alcohol Intake: former Drug use: Occasionally Substance use type: other Details: Uses edibles if he has not slept. States he has had trouble sleeping for years. current occupation: Works on farm Do you feel safe at home: Yes Do you feel safe in your relationship?: Yes Exam <NORMA Long - Last Filed: 10/15/20 00:06> Const General: cooperative, comfortable, no acute distress, well developed, in distress mild and anxious Nutritional Appearance: average body habitus and well nourished Orientation: alert, awake and oriented x3 HENMT Head: normal to inspection Ears: hearing grossly normal bilaterally Mouth: mucous membranes dry (appears dry) Eyes General: appearance normal, both eyes and all related structures Alignment and Position: alignment normal Conjunctivae: conjunctivae normal Pupils: PERRL and normal by confrontation Chest Chest: normal inspection of the chest, normal palpation of entire chest wall and no crepitus Resp Effort & Inspection: normal respiratory effort, able to speak in complete sentences and no respiratory distress Auscultation: clear to auscultation bilaterally, no rales, no rhonchi and no wheezes Cardio Rate: tachycardic Rhythm: regular rhythm Heart Sounds: S1 normal and S2 normal GI Inspection: normal to inspection, no edema and non-distended Palpation: soft, no hepatosplenomegaly, not firm, no guarding, not rigid and nontender Auscultation: normal bowel sounds Skin General skin exam: no rashes or lesions noted Trauma: no lacerations or abrasions Neuro General: patient alert, patient awake and patient oriented x3 Cognition: normal cognition Speech: speech normal Motor: muscle tone normal throughout Extrem General: normal to inspection, capillary refill normal, no pedal edema and no calf tenderness Psych Appearance: grossly normal and well kempt Mental Status: mental status grossly normal Speech and Movement: speech and movement normal Course <NORMA Long Last Filed: 10/15/20 00:06> Vital Signs Vital signs: Vital Signs Temperature 36.6 C 10/12/20 22:38 Pulse 128 H 10/12/20 22:38 Respiratory Rate 20 10/12/20 22:38 Blood Pressure 121/79 10/12/20 22:38 Pulse Oximetry 93 10/12/20 22:38 Temperature 36.6 C 10/12/20 22:38 Pulse 128 H 10/12/20 22:38 Respiratory Rate 20 10/12/20 22:38 Blood Pressure 121/79 10/12/20 22:38 Blood Pressure Position Supine 10/12/20 22:38 Pulse Oximetry 93 10/12/20 22:38 Oxygen Delivery Method Room Air 10/12/20 22:38 Oxygen Flow Rate 0 10/12/20 22:38 Pain Level 6 10/12/20 22:38 Sign Out <NORMA Long - Last Filed: 10/15/20 00:06> Sign Out Data: Sign Out Comment: Care transitioned to Dr. Burt with labs, reassessment and disposition pending. Patient will need repeat troponin for CP that began just prior to arrival. Recieved IV Versed by EMS for anxiety and spasms. Last updated by Carly Bolivar PA at 10/12/20 23:42
[2020-10-12 23:10] LABS: Abs Immature Grans 0.04 10^3/uL (0.0-0.06); Absolute Basophil Count 0.04 10^3/uL (0.0-0.2); Absolute Eosinophil Count 0.66 10^3/uL (0.0-0.7); Absolute Lymphocyte Count 3.81 10^3/uL (1.2-3.4); Absolute Neutrophil Count 5.36 10^3/uL (1.2-6.7); Basophils % 0.4; Eosinophils % 6.2; HCT 38.6 % (40.0-50.0); HGB 12.7 g/dL (13.5-17.5); Immature Grans % 0.4; Lymphocytes % 35.9; MCH 30.2 pg (27.0-33.0); MCHC 32.9 % (32.0-36.0); MCV 91.9 fL (80-95); MPV 9.2 fL (8.0-11.0); Monocytes % 6.6; Neutrophils % 50.5; Nucleated RBC 0 %; Platelet Count 252 10^3/uL (130-400); RDW 12.4 % (11.8-14.1); RDW-SD 41.7 fL; WBC 10.61 10^3/uL (4.4-10.8)
[2020-10-12 23:23] LABS: Magnesium 1.7 mg/dL (1.8-2.4)
--- NOTE | 2020-10-12 23:23 | DI.VRAD_ITS ---
PROCEDURE INFORMATION: Exam: XR Chest Exam date and time: 10/12/2020 10:50 PM Age: 45 years old Clinical indication: Chest pressure; Patient HX: Chest pain TECHNIQUE: Imaging protocol: XR of the chest. Views: 1 view. COMPARISON: CR CHEST 2 VIEWS PA,LAT 03/16/2014 12:17 PM FINDINGS: Lungs: Unremarkable. No consolidation. Pulmonary vessels are not congested. Pleural spaces: Unremarkable. No pleural effusion. No pneumothorax. Heart/Mediastinum: Unremarkable. No cardiomegaly. Bones/joints: Mild right apex curvature noted in the thoracic spine. IMPRESSION: No acute cardiopulmonary abnormality. Dictated and Authenticated by: Stephon Dennis MD. Ordering:AVIVA Carroll MD
[2020-10-12 23:33] LABS: ALT 35 U/L (16-63); AST 21 U/L (15-37); Albumin 3.6 g/dL (3.4-5.0); Alkaline Phosphatase 66 U/L (46-116); Anion Gap 8.5 mmol/L (3-11); BUN 14 mg/dL (7-18); Bilirubin, Total 0.2 mg/dL (0.2-1.0); CO2 25.5 mmol/L (21.0-32.0); CREATININE 1.3 mg/dL (0.70-1.30); Calcium 8.4 mg/dL (8.5-10.1); Chloride 107 mmol/L (98-107); Estimated GFR 59.43 (mL/min/1.73m2); Glucose 126 mg/dL (74-106); Potassium 3.4 mmol/L (3.5-5.1); Sodium 141 mmol/L (136-145); TSH (W/Ref FT4) 1.23 uIU/mL (0.36-3.74); Total Protein 6.8 g/dL (6.4-8.2)
[2020-10-12 23:34] LABS: Troponin I < 0.05 ng/mL (<0.06)
[2020-10-13] VITALS (22 sets, daily range): BP systolic 107–119; BP diastolic 64–82; PULSE 83–107; RESP 16–30; O2SAT 92–96
[2020-10-13] MEDS: LORazepam 2 MG/ML VIAL 1 MG IVP (00:03)
[2020-10-13 01:59] LABS: Troponin I < 0.05 ng/mL (<0.06)
--- NOTE | 2020-10-13 02:01 | NUR.NOTE ---
Nursing Note:Documentation of 300 ml urine out was entered on wrong chart
== END 2020-10-13 01:13 | disposition home or self-care (01) ==
PROVIDERS: Physician Assistant; Emergency Provider Emergency Medicine; PCP Family Medicine
DX: F41.0 Panic disorder [episodic paroxysmal anxiety] (principal); R07.89 Other chest pain; M62.838 Other muscle spasm; R00.0 Tachycardia, unspecified; G47.09 Other insomnia; F12.10 Cannabis abuse, uncomplicated
CPT/HCPCS: 36415; 80053; 80307; 93005; 96361; 96374; 99285; 71045; 81003; 83735; 84443; 84484; 85025; 93010; 99284; J2060

== ENCOUNTER 2020-11-16 19:12 | Emergency (ER) | payer MEDICARE, MEDICAID, SELFPAY ==
[2020-11-16 19:22] VITALS: BP 125/77; PULSE 88; RESP 18; TEMP 36.6; O2SAT 97
--- NOTE | 2020-11-16 19:45 | ED.GENADUL_ITS ---
Discharge Plan Disposition Patient Disposition: HOME Condition: Stable Discharge Details Clinical Impression: BRBPR (bright red blood per rectum) Primary Care Provider: Lenin Santiago ED Provider: Carly Bolivar Home Meds and New Rx's Prescriptions: Continued omeprazole 20 MG capsule,delayed release(DR/EC) 40 mg PO BID RF: 0 paroxetine HCl 40 MG tablet 50 mg PO HS RF: 0 oxycodone-acetaminophen [Percocet] 5-325 mg Tablet 1 tab PO TID PRNRF: 0 pregabalin 50 mg Capsule 50 mg PO BID RF: 0 cyclobenzaprine 5 mg tablet 5 mg PO HS RF: 0 Discharge Instructions Instructions: Rectal Bleeding (ED) Additional Instructions: Your exam here is reassuring. However, with your rectal bleeding as well as your family history, I would like for you to have a colonoscopy soon as possible. Please call general surgery tomorrow to schedule appointment, number listed below. If you develop any abdominal pain, continued bleeding, weakness, dizziness or no bleeding elsewhere, please seek care urgently once again. Referrals: Lenin Santiago [Primary Care Provider] - Discharge Data Discharge Date/Time-TO BE ENTERED AT DEPARTURE: 11/16/20 20:15 Medical Decision Making Patient is a pleasant 45 year old male presenting today with c/c of BRBPR. She states that he had one episode of this approximately one hour prior to arrival. Has not had this historically. No easy bruising or bleeding elsewhere. He is not anticoagulated. No rash. Denies abdominal pain. No fevers/chills. States that stool was soft, he did not strain. Denies having had hemorrhoids previously. Past family history signficant for colon cancer. Patient states his last colonoscopy was 25 years ago and that he is over due for another. Has been contacted by general surgery team but has not called theem back to schedule yet. On exam, patient appears nontoxic. No pallor. Abdomen benign. Rectal exam normal. Rectal vault is clean, no blood noted, heme negative. No rash or bruising noted. Patient and I discussed treatment/workup options. He has no evidence of coagulopathy. No abdominal pain to suggest surgical or infectious pathology. Patient need colonoscopy, particulary with family history. He will call tomorrow to schedule one as soon as possible. As he does not have evidence of anemia, no continued bleeding and no pain, will hold off on any immediate interventio or evaluation. He is hemodynamically stable. He feels comfortable with this plan and agrees to call tomorrow morning to schedule appointment. Return precautions were discussed, all of his questions and concerns were addressed, he is in agreement with this plan. HPI General Mode of arrival: ambulatory . Date/Time Provider Initiated Documentation: 11/16/20 19:45 . Limitations to Documentation: no limitations . Information obtained by: patient and RN notes reviewed . History of Present Illness 45 year old M presents to the emergency department with the chief compl aint of rectal bleeding, described as moderate, Quality is described as other (denies any pain associated with this), Patient reports no radiation. Patient started experiencing this hour(s) (1) and it has been now resolved (had one episode of BRBPR). No relieving factors improve symptom(s), No exacerbating factors reported . Patient notes no other symptoms.. Patient did receive the following treatments prior to arrival, none Related Data Home Medications Medication Instructions Recorded Confirmed omeprazole 40 mg PO BID 03/13/14 11/16/20 paroxetine HCl 50 mg PO HS 03/13/14 11/16/20 oxycodone-acetaminophen [Percocet] 1 tab PO TID PRN 06/10/18 11/16/20 pregabalin 50 mg PO BID 05/10/19 11/16/20 cyclobenzaprine 5 mg PO HS 11/16/20 11/16/20 Allergies Allergy/AdvReac Type Severity Reaction Status Date / Time house dust mite AdvReac Intermediate nasal Unverified 11/16/20 19:32 congestion mold AdvReac Mild rhinitis, Verified 11/16/20 19:32 sneezing General Stated Complaint: GI Bleed TJ: 3 Review of Systems Constitutional Constitutional: Reports as per HPI, Denies chills, Denies fatigue and Denies fever(s) Cardiovascular Cardiovascular: Reports as per HPI, Denies chest pain and Denies dyspnea Respiratory Respiratory: Reports as per HPI, Denies cough and Denies dyspnea Gastrointestinal Gastrointestinal: Reports as per HPI Genitourinary Genitourinary: Denies system reviewed and no additional complaints, except as documented (patient denies any change in urinary habits) and Denies hematuria Musculoskeletal Musculoskeletal: Reports as per HPI and Denies back pain Integumentary/Breasts Skin/Breast: Reports as per HPI and Denies rash Neurologic Neurologic: Reports as per HPI Endocrine Endocrine: Denies fatigue Hematologic/Lymphatic Hematologic/Lymphatic: Denies easy bleeding and Denies easy bruising [facility] Social History Smoking/Tobacco Use Status: Current every day Tobacco Type: cigarettes Years smoked: 20 Counseling given: provider counseling Smoking risk assessment performed?: Yes Alcohol Intake: former Drug use: Occasionally Substance use type: other Details: Uses edibles if he has not slept. States he has had trouble sleeping for years. current occupation: Works on farm Do you feel safe at home: Yes Do you feel safe in your relationship?: Yes Exam Const General: cooperative, healthy appearing, comfortable, no acute distress and well developed Nutritional Appearance: average body habitus and well nourished Orientation: alert and awake Eyes Cornea: corneas normal (no pallor) Resp Effort & Inspection: normal respiratory effort, able to speak in complete sentences and no respiratory distress Auscultation: clear to auscultation bilaterally, no rales, no rhonchi and no wheezes Cardio Rate: regular rate Rhythm: regular rhythm Heart Sounds: S1 normal and S2 normal GI Inspection: normal to inspection, no edema and non-distended Palpation: soft, no hepatosplenomegaly, not firm, no guarding, no pulsatile masses, not rigid and nontender Percussion: normal to percussion Auscultation: normal bowel sounds Rectal Exam: visual inspection normal, normal sphincter tone, prostate normal, No heme positive stool, No hemorrhoids and No laceration Back/Spine/Pelvis Back: no CVA tenderness Skin General skin exam: no rashes or lesions noted Trauma: no lacerations or abrasions Neuro General: patient alert and patient awake Cognition: normal cognition Speech: speech normal Gait: normal gait Psych Appearance: grossly normal and well kempt Mental Status: mental status grossly normal Speech and Movement: speech and movement normal Course Vital Signs Vital signs: Vital Signs Temperature 36.6 C 11/16/20 19:22 Pulse 88 11/16/20 19:22 Respiratory Rate 18 11/16/20 19:22 Blood Pressure 125/77 11/16/20 19:22 Pulse Oximetry 97 11/16/20 19:22 Temperature 36.6 C 10/04/21 19:22 Temperature Source Tympanic 11/16/20 19:22 Pulse 88 11/16/20 19:22 Respiratory Rate 18 11/16/20 19:22 Respiratory Effort Non-Labored 11/16/20 19:34 Blood Pressure 125/77 11/16/20 19:22 Blood Pressure Position Sitting 11/16/20 19:22 Pulse Oximetry 97 11/16/20 19:22 Oxygen Delivery Method Room Air 11/16/20 19:22 Oxygen Flow Rate 0 11/16/20 19:22 Pain Level 6 11/16/20 19:22
== END 2020-11-16 20:15 | disposition home or self-care (01) ==
PROVIDERS: Emergency Provider Physician Assistant; PCP Family Medicine
DX: K62.5 Hemorrhage of anus and rectum (principal); Z80.0 Family history of malignant neoplasm of digestive organs
CPT/HCPCS: 99282; 99283

== ENCOUNTER → 2020-11-20 07:52 | Outpatient (BNVA) | payer MEDICARE, MEDICAID, SELFPAY | PROVIDERS: PCP Family Medicine; Referring Provider Family Medicine; Visit Provider Physical Therapy Assistant | DX: Z12.11 Encounter for screening for malignant neoplasm of colon (principal); Z80.0 Family history of malignant neoplasm of digestive organs ==

== ENCOUNTER 2021-01-01 02:38 | Outpatient (CLI) | payer MEDICARE, MEDICAID, SELFPAY ==
[2021-01-01 11:43] LABS: Source Nasal/Nares
[2021-01-01 15:27] LABS: COVID-19 PCR Negative (Negative)
== END 2021-01-01 02:39 | disposition home or self-care (01) ==
LOC: LBO 02:39
PROVIDERS: Surgery; PCP Family Medicine; Visit Provider Surgery
DX: Z20.822 Contact with and (suspected) exposure to COVID-19 (principal); Z01.818 Encounter for other preprocedural examination
CPT/HCPCS: 87635

== ENCOUNTER 2021-01-04 06:52 | Day surgery (SDC) | payer MEDICARE, MEDICAID, SELFPAY ==
--- NOTE | 2021-01-03 14:44 | ANES.PREOP_ITS ---
General Info Date of Service Date Performed: 01/04/21 Height: 5 ft 11 in Weight: 101.264 kg Body Mass Index (BMI): 31.1 Surgical Procedure: Operation Date: 01/04/21 08:35 Proposed Procedures Side Surgeon p Sharri Mobley MD Meds Allergies and Home Medications Allergies Allergy/AdvReac Type Severity Reaction Status Date / Time house dust mite AdvReac Intermediate nasal Unverified 01/04/21 07:05 congestion mold AdvReac Mild rhinitis, Verified 01/04/21 07:05 sneezing Home Medication Medication Instructions Recorded omeprazole 40 mg PO BID 03/13/14 paroxetine HCl 50 mg PO HS 03/13/14 oxycodone-acetaminophen [Percocet] 1 tab PO TID PRN 06/10/18 pregabalin 50 mg PO BID 05/10/19 cyclobenzaprine 5 mg PO HS 11/16/20 bisacodyl 5 mg tablet,delayed 5 mg PO ONCE #4 tab 11/20/20 release polyethylene glycol 3350 17 238 g PO ONCE #238 g 11/20/20 gram/dose oral powder Current Visit Medications: Current Medications Generic Name Dose Route Start Last Admin Trade Name Freq PRN Reason Stop Dose Admin Ringer's Solution 1,000 mls @ 80 mls/hr 01/04/21 06:00 IV 01/31/21 23:59 INFUSION AV IV Miscellaneous Supplies 1 each 01/04/21 06:00 Iv Access IV 01/31/21 23:59 DIRECTED AV Sodium Chloride 0 ml 01/04/21 06:00 Normal Saline Flush 10 Ml Syr IV 01/31/21 23:59 PRN PRN Sodium Chloride 0 ml 01/04/21 06:00 Normal Saline 10 Ml Vial IJ 01/31/21 23:59 DIRECTED PRN Sterile Water 0 ml 01/04/21 06:00 Water,Injection,Sterile 10 Ml Vial IJ 01/31/21 23:59 DIRECTED PRN PFSH Active Problems Active Problems: Problem Status Onset Code Hypokalemia due to loss of potassium E87.6 Depression F32.9 Chronic back pain greater than 3 months duration M54.9, G89.29 Chronic prescription opiate use Z79.891 GERD (gastroesophageal reflux disease) K21.9 Smoker F17.200 Anemia D64.9 Sinus pressure J34.89 BRBPR (bright red blood per rectum) K62.5 Insomnia G47.00 Panic attack F41.0 Chronic maxillary sinusitis J32.0 Chronic rhinitis J31.0 Ileitis K52.9 DVT prophylaxis Discharge planning issues Z02.9 Allergic rhinitis J30.9 Vomiting and diarrhea R11.10, R19.7 Sinusitis, acute, maxillary J01.00 Medical History Active Problem List Family history of colon cancer (Acute) Encounter for colorectal cancer screening (Acute) Hypokalemia due to loss of potassium (Acute) Anemia (Chronic) Sinus pressure (Acute) BRBPR (bright red blood per rectum) (Acute) Ileitis (Acute) DVT prophylaxis (Acute) Discharge planning issues (Acute) Allergic rhinitis (Chronic) Vomiting and diarrhea (Acute) Sinusitis, acute, maxillary (Acute) Medical History Chronic back pain greater than 3 months duration Chronic maxillary sinusitis Chronic prescription opiate use Chronic rhinitis Depression GERD (gastroesophageal reflux disease) Insomnia Panic attack Smoker Tobacco Smoking/Tobacco Use Status: Current every day Tobacco Type: cigarettes Years smoked: 20 Counseling given: provider counseling Alcohol Alcohol Intake: former Substance Use Substance use: Occasionally Substance use type: other Details: Uses edibles if he has not slept. States he has had trouble sleeping for years. Vital Signs and Lab Results Vital Signs Most Recent Vital Signs in EMR: Temp Pulse Resp BP Pulse Ox 36.5 C 75 18 129/79 98 01/04/21 07:15 01/04/21 07:15 01/04/21 07:15 01/04/21 07:15 01/04/21 07:15 Lab Results Blood Type / Crossmatch: No Data to Display Complete Blood Count: No Data to Display Complete Metabolic Panel: No Data to Display Liver Function Panel: No Data to Display Coagulation Panel: No Data to Display Cardiac Panel: No Data to Display Arterial Blood Gas: 2 No Data to Display Venous Blood Gas: No Data to Display Pancreas Panel: No Data to Display Thyroid Panel: No Data to Display Infectious Disease: Coronavirus (COVID-19)(PCR) Negative (Negative) 01/01/21 10:30 01/01/21 Coronavirus 2019 Source Nasal/Nares 01/01/21 10:30 01/01/21 Blood Cultures: No Data to Display Toxicology Panel: No Data to Display Imaging and Studies Imaging and Studies EKG Summary: Conclusion Sinus tachycardia...rate> 99 I have reviewed and I agree with the emergency room physician's ECG interpretation. Anesthesia Assessment and Plan Anesthesia History Personal History: No History of Anesthesia Complications Family History: No Family History of Anesthesia Complications Exercise Tolerance Exercise Tolerance: Metabolic Equivalents>4 Pertinent Negatives Pertinent Negatives: No Major Cardiovascular Symptoms or Complaints and No Major Pulmonary Symptoms or Complaints Cardiac & Pulmonary Exam Cardiac Exam: Normal S1/S2 Heart Sounds Pulmonary Exam: Clear Bilateral Breath Sounds Implantable Cardiac Device Does patient have a Pacemaker or an ICD?: No Airway Exam Known Difficult Airway: No Mallampati Class: 1 Mouth Opening: Normal (> 3cm) Thyromental Distance: Greater than 3 cm Facial Hair: Full Rubi Neck Range of Motion: Full ROM Neck Circumference: Normal Teeth Condition: Edentulous ASA Classification ASA Score: ASA 2 Emergency Case?: No NPO Status NPO Status: NPO Clears >2 hours, Solids >8 hours Anesthesia Plan Resuscitation Status: Full Code Anesthesia Technique: General Anesthesia Airway Planned: Natural Airway Monitors Used: Standard Monitors Preoperative Comments:: 44 yo male for colo. Sig PMHx: GERD, smoker
--- NOTE | 2021-01-04 06:29 | W.PM.HP.N ---
Date of service: 01/04/21 Time of Service: 08:08 Assessment and Plan Assessment and plan (1) Encounter for colorectal cancer screening: Status: Acute Assessment and plan: The patient is here for Colonoscopy pre-op. He reports having had a Colonoscopy 25+ years ago, results unknown. He reports a family history of colon cancer in his father, grandfather and great grandfather. He has not had any bowel habit changes, although he describes a single episode of painless rectal bleeding that spontaneously resolved. -Discussed colonoscopy bowel prep as well as the procedure. Discussed possible complications of the procedure to include bleeding, pain, perforation, missed small lesion/polyp, sore throat, aspiration and adverse reaction to the medications. Questions were answered to patient?s satisfaction. No guarantees were implied or given. (2) Family history of colon cancer: Status: Acute History of Present Illness Narrative: 45 y/o male with a benign medical history presents for colonoscopy screening pre-op. He reports having had a Colonoscopy 25+ years ago, results unknown. He reports a family history of colon cancer in his father, grandfather and great grandfather. He does not know the ages of diagnosis. He denies any persistent changes in bowel habits including black tarry stools, abdominal pain, diarrhea or constipation. Of note he was seen in the ER on 11/16 for single episode of bright red blood in the toilet following a BM. He states the bleeding spontaneously resolved and has not recurred. Exam in the ER, rectal vault was clean, no blood noted and heme negative. He denies constitutional symptoms. Denies use of marijuana or any other recreational or illegal drugs. He denies chest pain, palpitations, dyspnea or dyspnea with exertion. He denies prior history or family history of adverse reactions or complications with anesthesia. The patient denies any history of stroke, [place], seizures, bleeding or clotting disorders. He denies having any implanted metal in his body. There have been no changes in his health since he was last seen in the office Review of Systems Cardiovascular Cardiovascular: Denies chest pain, Denies chest pain at rest, Denies irregular heart rhythm, Denies dyspnea and Denies dyspnea on exertion Respiratory Respiratory: Denies cough, Denies dyspnea and Denies dyspnea on exertion Gastrointestinal Gastrointestinal: Reports as per HPI Genitourinary Genitourinary: Denies dysuria, Denies urinary incontinence and Denies urinary urgency Endocrine Endocrine: Reports system reviewed and no additional complaints, except as documented Hematologic/Lymphatic Hematologic/Lymphatic: Denies easy bruising and Denies lymphadenopathy PFSH Active Problem List Family history of colon cancer (Acute) Encounter for colorectal cancer screening (Acute) Hypokalemia due to loss of potassium (Acute) Anemia (Chronic) Sinus pressure (Acute) BRBPR (bright red blood per rectum) (Acute) Ileitis (Acute) DVT prophylaxis (Acute) Discharge planning issues (Acute) Allergic rhinitis (Chronic) Vomiting and diarrhea (Acute) Sinusitis, acute, maxillary (Acute) Medical History Chronic back pain greater than 3 months duration Chronic maxillary sinusitis Chronic prescription opiate use Chronic rhinitis Depression GERD (gastroesophageal reflux disease) Insomnia Panic attack Smoker Social History Smoking/Tobacco Use Status: Current every day Tobacco Type: cigarettes Years smoked: 20 Counseling given: provider counseling Smoking risk assessment performed?: Yes Alcohol Intake: former Drug use: Never Substance use type: does not use current occupation: Works on farm Do you feel safe at home: Yes Do you feel safe in your relationship?: Yes Meds Allergies and Home Medications Allergies Allergy/AdvReac Type Severity Reaction Status Date / Time house dust mite AdvReac Intermediate nasal Unverified 01/04/21 07:05 congestion mold AdvReac Mild rhinitis, Verified 01/04/21 07:05 sneezing Home Medications Medication Instructions Recorded Confirmed Type omeprazole 40 mg PO BID 03/13/14 01/04/21 History paroxetine HCl 50 mg PO HS 03/13/14 01/04/21 History oxycodone-acetaminophen [Percocet] 1 tab PO TID PRN 06/10/18 01/04/21 History pregabalin 50 mg PO BID 05/10/19 01/04/21 History cyclobenzaprine 5 mg PO HS 11/16/20 01/04/21 History bisacodyl 5 mg tablet,delayed 5 mg PO ONCE #4 tab 11/20/20 01/04/21 Rx release polyethylene glycol 3350 17 238 g PO ONCE #238 g 11/20/20 01/04/21 Rx gram/dose oral powder Exam Const General: healthy appearing and comfortable Resp Effort & Inspection: normal respiratory effort Auscultation: clear to auscultation bilaterally Cardio Rate: regular rate Rhythm: regular rhythm Heart Sounds: no click, no gallops and no murmurs
--- NOTE | 2021-01-04 06:32 | COLE_ITS ---
Colonoscopy Report Date of procedure: 01/04/21 Pre-op diagnosis general: Colon Cancer Screening and family history of colon can cer Post-op diagnosis procedure note: other (polyp) Procedure: Colonoscopy with polypectomy Surgeon: Jessa Mobley Anesthesia Type: General:No Airway (Sukhjinder Mckeon CRNA) Estimated blood loss (mL): 2 Pathology: other (descending polyp) Complications: None Disposition: same day Indications: The patient is here for Colonoscopy pre-op. He reports having had a Colonoscopy 25+ years ago, results unknown. He reports a family history of colon cancer in his father, grandfather and great grandfather. He has not had any bowel habit changes, although he describes a single episode of painless rectal bleeding that spontaneously resolved. -Discussed colonoscopy bowel prep as well as the procedure. Discussed possible complications of the procedure to include bleeding, pain, perforation, missed small lesion/polyp, sore throat, aspiration and adverse reaction to the medications. Questions were answered to patient?s satisfaction. No guarantees were implied or given. Prep: Miralax/Dulcolax Procedure Start Time: 08:28 Procedure End Time: 08:53 Retraction Time: 13 minutes Findings: One small sessile polyp Procedure Description: After informed consent was obtained the patient was taken to the procedure room and placed in a left decubitous position. Monitors were applied and a time out was done. The patients name, date of , procedure, allergies to medications and metal in their body was reviewed. The patient was then sedated. Once sedated and comfortable a rectal exam was done. External exam was normal. Internal exam revealed a normal sphincter tone and no palpable masses. The prostate felt smooth. The scope was then introduced and retro-flexed. No internal hemorrhoids, polyps or masses were identified on retro-flexion. The scope was then advanced to the cecum without difficulty. The ileocecal vlave and appendiceal orifice were identified. The prep was [adequate. There was a lot of undigested corn in the intestine. The scope was then slowly retracted over 13 minutes back into the rectum. Polyps were removed with cold forceps in the descending colon. There was no diverticulosis noted. The scope was removed and the patient was woken up and taken back to Same day surgery in stable condition. The patient tolerated the procedure well and there were no immediate complications. Follow up: The patient should follow up in 5-10 years unless they develop changes in bowel habits or other new gastrointestinal complaints.
--- NOTE | 2021-01-04 06:33 | W.PM.DSUDISC ---
Discharge Plan Disposition Patient Disposition: HOME Condition: Stable Discharge Details Reason For Visit: Colonoscopy Attending Provider: Jessa Mobley Primary Care Provider: Lenin Santiago Home Meds and New Rx's Prescriptions: Continued omeprazole 20 MG capsule,delayed release(DR/EC) 40 mg PO BID RF: 0 paroxetine HCl 40 MG tablet 50 mg PO HS RF: 0 oxycodone-acetaminophen [Percocet] 5-325 mg Tablet 1 tab PO TID PRNRF: 0 pregabalin 50 mg Capsule 50 mg PO BID RF: 0 cyclobenzaprine 5 mg tablet 5 mg PO HS RF: 0 Discontinued polyethylene glycol 3350 17 gram/dose powder 238 g PO ONCE Qty: 238 RF: 0 bisacodyl [Dulcolax (bisacodyl)] 5 mg tablet,delayed release (DR/EC) 5 mg PO ONCE Qty: 4 RF: 0 Discharge Instructions Instructions: Colorectal Polyps (DC) Additional Instructions: Findings: One small polyp Follow up: will depend on the pathology result Please call if you develop: fevers >101.5 Nausea or Vomiting Abdominal pain that is not transient Rectal bleeding that is more then a tbsp A hard abdomen and inability to pass gas DAY SURGERY UNIT POST ENDOSCOPY INSTRUCTIONS Instructions for everyone who is given Anesthesia: For your safety, please do the following for the next 24 Hours: a. Do not drive or operate dangerous equipment b. Do not drink alcohol beverages or use any recreational drugs for the first 24 hours or while taking pain medications. The medications in your body may have a reaction that can be dangerous. c. Do not make any important decisions or sign any important papers 1. Generally there are no restrictions on your activity after a day or so has gone by, but you may feel a bit fatigued for a few days. 2. After you arrive home you may have a light meal and return to a normal diet as you can tolerate it without feeling sick to your stomach. 3. After surgery, you may feel pain or discomfort. This should be only transient, but if it persists please contact your doctor. 4. If there are any questions regarding the findings of your procedure, please feel free to contact your doctor. 6. If you are unable to contact your doctor with a problem, contact the hospital at [phone]. 7. Continue all your regular medications unless directed otherwise. I understand the above instructions and have no questions. Signature of Patient or Responsible Adult Escort Date/Time Name of Responsible Adult Escort Signature of Nurse Date/Time Activity:: Activity as Tolerated Diet:: As Tolerated Discharge Orders Discharge Orders: Discharge Order (Routine); Ordered 01/04/21 Ordered By: Jessa Mobley DS: Diagnosis Discharge Diagnosis (1) Encounter for colorectal cancer screening: Status: Acute (2) Family history of colon cancer: Status: Acute
[2021-01-04 07:15] VITALS: BP 129/79; PULSE 75; RESP 18; TEMP 36.5; O2SAT 98
[2021-01-04] MEDS: Lactated Ringers 1,000 ML 80 ML IV (07:38)
[2021-01-04 07:59] VITALS: BMI 31.1
--- NOTE | 2021-01-04 08:48 | BOWEL_PTH ---
PATIENT: Félix Mcintosh LOC: [facility] U#:[id number] AGE/SX: 45/M ROOM: RE01/04/[address]: Jessa Mobley MD : 1975 BED: DIS: 01/04/2021 SPEC #: [id number] RECD: 01/04/21 12:55 STATUS: SLY RE #: [id number] HUGO: 01/04/21 08:[address]: Jessa Mobley DEPT: Surgical Specimen RECD BY: Kerry Barboza ENTERED: 01/04/21 12:56 SP TYPE: Bowel OTHR DR: Lenin Santiago Tissues: 1 - BIOPSY BOWEL Procedures: GROSS AND MICRO LEVEL 4 Comments: [id number]
[2021-01-04 09:18] VITALS: BP 112/79; PULSE 69; RESP 16; TEMP 36.9; O2SAT 97
--- NOTE | 2021-01-04 09:23 | W.ANESPOSTOP ---
Postoperative Evaluation Date, Time and Location Date Performed: 01/04/21 Time Performed: 09:12 Patient Location: Day Surgery Unit Vital Signs Most Recent Imported Vital Signs: Most Recent Vital Signs Temp Pulse Resp BP Pulse Ox 36.9 C 69 16 112/79 97 01/04/21 09:18 01/04/21 09:18 01/04/21 09:18 01/04/21 09:18 01/04/21 09:18 Pain Score Most Recent Pain Score: Most Recent Pain Score Pain Level 0 01/04/21 09:18 Assessment Mental Status: Awake (Alert & Oriented to Patient Baseline) Airway and Respiratory Function: Patent airway with normal (patient baseline) respiratory exam Cardiovascular Function: Hemodynamically Stable Hydration Status: Adequately Hydrated Nausea & Vomiting: No Nausea or Vomiting Pain: Pt. Denies Any Pain Peripheral Nerve Block: Patient did not receive a nerve block
[2021-01-04 09:32] VITALS: BP 123/84; PULSE 71; RESP 18; TEMP 36.6; O2SAT 98
== END 2021-01-04 09:55 | disposition home or self-care (01) ==
LOC: SUR 06:53
PROVIDERS: PCP Family Medicine; Visit Provider Surgery
PROC: 0DJD8ZZ Inspection of Lower Intestinal Tract, Via Natural or Artificial Opening Endoscopic (ICD-10-PCS; CPT 45378; principal; 2021-01-04 08:30)
DX: Z12.11 Encounter for screening for malignant neoplasm of colon (principal); Z80.0 Family history of malignant neoplasm of digestive organs; K63.5 Polyp of colon
CPT/HCPCS: 45380; 88305; J2704

== ENCOUNTER 2021-10-15 10:08 | Emergency (ER) | payer MEDICARE, MEDICAID, SELFPAY ==
[2021-10-15 10:11] VITALS: BP 129/84; PULSE 93; TEMP 36.8; O2SAT 99
[2021-10-15] MEDS: Lidocaine 5% Patch 1 PATCH TP (10:33)
--- NOTE | 2021-10-15 10:41 | DI.RAD_ITS ---
Exam(s) XR LUMBAR SPINE COMPLETE EXAM: XR LUMBAR SPINE COMPLETE CLINICAL HISTORY: fall, back pain hx of fusion TECHNIQUE: COMPARISON: CR from 05/30/2011 FINDINGS: Six views were obtained. There are Vargas rods in place from L4-S1. There is an L4-5 prosthetic disc. The hardware appears intact. Intervertebral disc spaces are fairly well maintained except for loss of disc height at L5-S1 in the aforementioned prosthetic disc at L4-5. There is no evidence of acute fracture or dislocation. Post erior fusion mass appears intact as visualized by plain film. No spondylolysis or spondylolisthesis. IMPRESSION: Surgical hardware and prior fusion noted from L4-S1, no evidence of acute fracture. RADIATION DOSE DELIVERED: Total DLP
[2021-10-15] MEDS: Ketorolac 15 MG/ML VIAL IM (10:43)
[2021-10-15] MEDS: Dexamethasone 10 MG/ML VIAL IM (10:43)
[2021-10-15] MEDS: Cyclobenzaprine 10 MG TAB PO (10:43)
--- NOTE | 2021-10-15 11:52 | ED.GENADUL_ITS ---
Discharge Plan Disposition Patient Disposition: HOME Condition: Stable Discharge Details Clinical Impression: Contusion of back Primary Care Provider: Lenin Santiago ED Provider: Von Clay Home Meds and New Rx's Prescriptions: New lidocaine [Lidoderm] 5 % adhesive patch,medicated 1 patch topical DAILY PRN (Reason: back pain) Qty: 15 0RF Rx Instructions: leave on most painful area for up to 12 hrs cyclobenzaprine 5 mg tablet 5 mg PO QHS PRN (Reason: muscle spasm) Qty: 7 0RF No Action omeprazole 20 MG capsule,delayed release(DR/EC) 40 mg PO BID paroxetine HCl 40 MG tablet 50 mg PO HS Label Comments: 40mg tab and 10 mg tab for total of 50mg dose oxycodone-acetaminophen [Percocet] 5-325 mg Tablet 1 tab PO TID PRN pregabalin 50 mg Capsule 50 mg PO BID cyclobenzaprine 5 mg tablet 5 mg PO HS Discharge Instructions Instructions: Contusion in Adults (ED) Additional Instructions: Please continue to rest and ice the area, use medications as needed. Please return to the emergency department for any worsening symptoms specifically but not limited to any bowel or bladder dysfunction numbness or tingling in the groin region inability to walk change in sensation in your legs or weakness or other abnormal symptoms. Medical Decision Making 46-year-old male history of prior lumbar spinal fusion presents 1 day after mechanical fall from standing fell backwards onto a pallet from ground-level, right lumbar paraspinal discomfort, no midline spinal discomfort, patient has motor function upper and lower extremities is ambulatory without ataxia, no bowel or bladder dysfunction no saddle anesthesia or paresthesia. Likely simple contusion versus muscle spasm versus unlikely disruption of hardware or spine fracture. X-ray unremarkable. Patient given anti-inflammatory medications. Home care instructions and return precautions given. HPI General Date/Time Provider Initiated Documentation: 10/15/21 10:11 . HPI Narrative: 46-year-old male history of prior lumbar fusion presents after mechanical fall from standing yesterday fell backwards onto a pallet, pain right lateral lumbar region. Related Data Home Medications Medication Instructions Recorded Confirmed omeprazole 20 mg capsule,delayed 40 mg PO BID 03/13/14 10/15/21 release paroxetine HCl 40 mg tablet 50 mg PO HS 03/13/14 10/15/21 oxycodone-acetaminophen 5 mg-325 1 tab PO TID PRN 06/10/18 10/15/21 mg tablet (Percocet) pregabalin 50 mg capsule 50 mg PO BID 05/10/19 10/15/21 cyclobenzaprine 5 mg tablet 5 mg PO HS 11/16/20 10/15/21 cyclobenzaprine 5 mg tablet 5 mg PO QHS PRN muscle spasm #7 10/15/21 tabs lidocaine 5 % topical patch 1 patch topical DAILY PRN back 10/15/21 (Lidoderm) pain #15 ea Previous Rx's Medication Instructions Recorded cyclobenzaprine 5 mg tablet 5 mg PO QHS PRN muscle spasm #7 10/15/21 tabs lidocaine 5 % topical patch 1 patch topical DAILY PRN back 10/15/21 (Lidoderm) pain #15 ea Allergies Allergy/AdvReac Type Severity Reaction Status Date / Time house dust mite AdvReac Intermediate nasal Unverified 10/15/21 10:17 congestion mold AdvReac Mild rhinitis, Verified 10/15/21 10:17 sneezing General Stated Complaint: Nk/Back Pain TJ: 4 Review of Systems Narrative: Review of Systems Constitutional: negative Eyes: negative ENT: negative Cardiovascular: negative Respiratory: negative Gastrointestinal: negative : negative Musculoskeletal: Back pain Skin: negative Neurologic: negative Psych: negative PFSH All Active Problems (Updated 10/15/21 @ 11:55 by Von Clay MD) Contusion of back (Acute) Hyperplastic colon polyp (Acute ~12/2020) Family history of colon cancer (Acute) Hypokalemia due to loss of potassium (Acute) Anemia (Chronic) Sinus pressure (Acute) BRBPR (bright red blood per rectum) (Acute) Ileitis (Acute) DVT prophylaxis (Acute) Discharge planning issues (Acute) Allergic rhinitis (Chronic) Vomiting and diarrhea (Acute) Sinusitis, acute, maxillary (Acute) Medical History Chronic back pain greater than 3 months duration Chronic maxillary sinusitis Chronic prescription opiate use Chronic rhinitis Depression GERD (gastroesophageal reflux disease) Insomnia Panic attack Smoker Surgical History (Updated 01/13/21 @ 15:13 by Leonor Marshall RN) History of colonoscopy with polypectomy (~12/25/20) Social History Smoking/Tobacco Use Status: Current every day Tobacco Type: cigarettes Years smoked: 20 Counseling given: provider counseling Smoking risk assessment performed?: Yes Alcohol Intake: former Drug use: Never Substance use type: does not use current occupation: Works on farm Do you feel safe at home: Yes Do you feel safe in your relationship?: Yes Exam Narrative Exam Narrative: Physical Examination General: alert, awake, cooperative, resting comfortably, no acute distress HEENT: normocephalic, atraumatic; PERRL, EOM intact, conjunctiva normal; no nasal discharge; moist mucous membranes, oral and pharyngeal mucosa normal, to lerating secretions Neck: supple, trachea midline; full ROM Chest: normal to inspection Respiratory: normal respiratory effort, speaking in full sentences, clear to auscultation, no wheezing, rales or rhonchi Cardiac: regular rate, regular rhythm, S1S2 intact, no murmurs rubs or gallops GI: abdomen soft, non-tender, non-distended; no palpable mass or hepatosplenomegaly Back: No midline spinal tenderness step-off or deformity, does have lumbar paraspinal discomfort on palpation without ecchymosis Skin: no lesions, rashes or trauma appreciated Neuro: AAOx3, normal speech, moving all extremities; 5 out of 5 strength upper and lower extremities ambulatory without ataxia Extremities: No limb injuries Psych: Appropriate mood and affect Course Vital Signs Vital signs: Vital Signs Temperature 36.8 C 10/15/21 10:11 Pulse 93 H 10/15/21 10:11 Blood Pressure 129/84 10/15/21 10:11 Pulse Oximetry 99 10/15/21 10:11 Temperature 36.8 C 10/15/21 10:11 Temperature Source Temporal Artery Scan 10/15/21 10:11 Pulse 93 H 10/15/21 10:11 Respiratory Effort Non-Labored 10/15/21 10:15 Blood Pressure 129/84 10/15/21 10:11 Blood Pressure Position Sitting 10/15/21 10:11 Pulse Oximetry 99 10/15/21 10:11 Oxygen Delivery Method Room Air 10/15/21 10:11 Oxygen Flow Rate 0 10/15/21 10:11 Pain Level 9 10/15/21 10:15
== END 2021-10-15 12:10 | disposition home or self-care (01) ==
PROVIDERS: Emergency Provider Emergency Medicine; PCP Family Medicine
DX: S30.0XXA Contusion of lower back and pelvis, initial encounter (principal); F17.210 Nicotine dependence, cigarettes, uncomplicated; W18.30XA Fall on same level, unspecified, initial encounter
CPT/HCPCS: 96372; 99284; 72110; J1100; J1885

== ENCOUNTER 2022-03-18 12:08 | Emergency (ER) | payer MEDICARE, MEDICAID, SELFPAY ==
[2022-03-18 12:12] VITALS: BP 127/83; PULSE 101; RESP 18; TEMP 36.7; O2SAT 98
--- NOTE | 2022-03-18 12:30 | DI.CT_ITS ---
Exam(s) CT ABDOMEN PELVIS W EXAM: CT ABDOMEN PELVIS W CLINICAL HISTORY: abd pain. TECHNIQUE: Imaging Protocol: Axial computed tomography images with coronal and sagittal reformatted images were created and reviewed CONTRAST MATERIAL: Intravenous: Omnipaque-350 100cc Oral: None FINDINGS: VISUALIZED LUNG BASES: No nodules nor pleural effusions evident. ABDOMEN: There is no ascites. LIVER: There are no focal hepatic lesions evident. No dilated intrahepatic ducts. GALLBLADDER/BILIARY: No obvious gallbladder pathology. CBD is not dilated. PANCREAS: No evidence of pancreatic mass nor dilatation of the pancreatic duct. SPLEEN: Spleen is not enlarged. No obvious intrasplenic lesions. Splenic and portal veins are paten t. ADRENALS: There are bilateral 1.5 cm adrenal nodules which are unchanged from 2018 and therefore prob ably benign adenomas. KIDNEYS:There is a small benign cyst in the medial lower right kidney measuring 1 cm. There is a sma ller 5 millimeter cyst in the medial cortex of the opposite-left kidney. There are no other focal re nal findings. No calculi. No hydronephrosis. No solid renal masses. Prior. ABDOMINAL AORTA: Abdominal aorta is not enlarged. LYMPH NODES:There is no retroperitoneal nor paraaortic adenopathy. ABDOMINAL WALL: No evidence of significant anterior abdominal wall nor inguinal hernia. GI: There is no evidence of bowel obstruction, free air, nor abscess. PELVIS: GI: No evidence of appendicitis.No evidence of sigmoid diverticulitis. LYMPH NODES: There is no intrapelvic nor inguinal adenopathy. REPRODUCTIVE: Prostate size upper normal. URINARY BLADDER: Thickened wall possibly related to under distension. No radiopaque calculi. OSSEOUS: Fusion hardware again noted in the lower lumbar spine as well as osseous donor site in the l eft iliac bone. No new significant osseous lesions. IMPRESSION: 1. No acute findings. The impressive enteritis pattern of the ileum which was evident on the CT scan of October 2017 is not evident on the present study. There is no bowel obstruction. No free air. No abscess. 2. Unchanged 1.5 cm nodules both adrenal glands, most probably benign adenomas. 3. Small cysts in each kidney measuring less than 1 cm. No significant focal renal findings. RADIATION DOSE DELIVERED: 1,015.97mGy.cm Total DLP DATA REPOSITORY: All CT scans at this facility are submitted to the National Radiology Data Registry (NRDR) Dose Index Registry (DIR) with the [employer] (A[employer]). RADIATION OPTIMIZATION: All CT scans at this facility use at least one of these dose optimization te chniques: automated exposure control; mA and/or kV adjustment per patient size (includes targeted exa ms where dose is matched to clinical indication); or iterative reconstruction.
[2022-03-18 12:38] LABS: Bilirubin Negative (Negative); Blood Negative (Negative); Clarity Clear (Clear); Glucose Negative (Negative); Ketones Negative (Negative); Leukocyte Esterase Negative (Negative); Nitrite Negative (Negative); Specific Gravity 1.015 (1.005-1.025); Urobilinogen 0.2 EU/dL (Up TO 0.2)
[2022-03-18] MEDS: Normal Saline 1,000 ML 1000 ML IV (12:45)
[2022-03-18 12:48] LABS: Abs Immature Grans 0.06 10^3/uL (0.0-0.06); Absolute Basophil Count 0.03 10^3/uL (0.0-0.2); Absolute Lymphocyte Count 2.39 10^3/uL (1.2-3.4); Absolute Monocyte Count 0.75 10^3/uL (0.1-0.8); Absolute Neutrophil Count 9.43 10^3/uL (1.2-6.7); Basophils % 0.2; Eosinophils % 1.9; HCT 43.9 % (40.0-50.0); HGB 14.4 g/dL (13.5-17.5); Immature Grans % 0.5; Lymphocytes % 18.5; MCH 29.5 pg (27.0-33.0); MCHC 32.8 % (32.0-36.0); MCV 90 fL (80-95); MPV 8.8 fL (8.0-11.0); Monocytes % 5.8; Neutrophils % 73.1; Platelet Count 312 10^3/uL (130-400); RBC 4.88 10^6/uL (4.36-5.78); RDW 12.3 % (11.8-14.1); RDW-SD 41.1 fL
[2022-03-18 12:55] LABS: Absolute Eosinophil Count 0.25 10^3/uL (0.0-0.7)
[2022-03-18] MEDS: Ketorolac 15 MG/ML VIAL IVP (12:55)
[2022-03-18 13:04] LABS: ALT 19 U/L (16-63); AST 16 U/L (15-37); Albumin 4.1 g/dL (3.4-5.0); Alkaline Phosphatase 83 U/L (46-116); BUN 11 mg/dL (7-18); Bilirubin, Total 0.5 mg/dL (0.2-1.0); Calcium 9.3 mg/dL (8.5-10.1); Chloride 103 mmol/L (98-107); Estimated GFR 93.42 (mL/min/1.73m2); Glucose 116 mg/dL (74-106); Potassium 3.6 mmol/L (3.5-5.1); Sodium 141 mmol/L (136-145); Total Protein 7.9 g/dL (6.4-8.2)
--- NOTE | 2022-03-18 13:10 | ED.GENADUL_ITS ---
Discharge Plan Disposition Patient Disposition: Home Discharge Details Clinical Impression: Abdominal pain Primary Care Provider: Lenin Santiago ED Provider: Jitendra Díaz Home Meds and New Rx's Prescriptions: No Action omeprazole 20 MG capsule,delayed release(DR/EC) 40 mg PO BID paroxetine HCl 40 MG tablet 50 mg PO HS Label Comments: 40mg tab and 10 mg tab for total of 50mg dose oxycodone-acetaminophen [Percocet] 5-325 mg Tablet 1 tab PO TID PRN pregabalin 50 mg Capsule 50 mg PO BID cyclobenzaprine 5 mg tablet 5 mg PO HS lidocaine [Lidoderm] 5 % adhesive patch,medicated 1 patch topical DAILY PRN (Reason: back pain) Qty: 15 0RF Rx Instructions: leave on most painful area for up to 12 hrs cyclobenzaprine 5 mg tablet 5 mg PO QHS PRN (Reason: muscle spasm) Qty: 7 0RF Discharge Instructions Instructions: Abdominal Pain (ED) Additional Instructions: Please continue taking all your regular medications. Please follow your primary care doctor within the next week Medical Decision Making Patient presented to the emergency room with chief complaint of abdominal pain and inguinal pain. Patient's blood work, CBC chemistries LFTs and UA were all within normal limits. Patient CT scan abdomen pelvis did not reveal any acute findings. The radiologist does comment on unchanged 1.5 cm nodules on both adrenal glands are probably benign adenomas. The patient had things documented in the past. He a lso has some small cysts in each kidney measuring less than 1 cm these are not considered significant. Etiology patient pain/discomfort is unclear to me. Patient will be a follow-up with his PCP HPI General Date/Time Provider Initiated Documentation: 03/18/22 12:37 . HPI Narrative: 46-year-old presents to the emergency room for evaluation of abdominal pain as well as bilateral inguinal pain. States that the pain is worse on the right side abdomen and groin pain and that all this started on Monday. He states that he been having some difficulties with his bowel movements throughout the week. He has taken MiraLAX a few times as well as an enema yesterday with very little result. No nausea no vomiting. No fever no chills. No diarrhea. No dysuria no frequency no hematuria. No penile discharge. Related Data Home Medications Medication Instructions Recorded Confirmed omeprazole 20 mg capsule,delayed 40 mg PO BID 03/13/14 10/15/21 release paroxetine HCl 40 mg tablet 50 mg PO HS 03/13/14 10/15/21 oxycodone-acetaminophen 5 mg-325 1 tab PO TID PRN 06/10/18 10/15/21 mg tablet (Percocet) pregabalin 50 mg capsule 50 mg PO BID 05/10/19 10/15/21 cyclobenzaprine 5 mg tablet 5 mg PO HS 11/16/20 10/15/21 cyclobenzaprine 5 mg tablet 5 mg PO QHS PRN muscle spasm #7 10/15/21 tabs lidocaine 5 % topical patch 1 patch topical DAILY PRN back 10/15/21 (Lidoderm) pain #15 ea Previous Rx's Medication Instructions Recorded cyclobenzaprine 5 mg tablet 5 mg PO QHS PRN muscle spasm #7 10/15/21 tabs lidocaine 5 % topical patch 1 patch topical DAILY PRN back 10/15/21 (Lidoderm) pain #15 ea Allergies Allergy/AdvReac Type Severity Reaction Status Date / Time house dust mite AdvReac Intermediate nasal Unverified 10/15/21 10:17 congestion mold AdvReac Mild rhinitis, Verified 10/15/21 10:17 sneezing General Stated Complaint: FlankPain TJ: 3 Review of Systems Narrative: Review of systems done and is negative unless otherwise specified in the HPI PFSH All Active Problems (Updated 03/18/22 @ 14:03 by Jitendra Díaz MD) Abdominal pain (Acute) Hyperplastic colon polyp (Acute ~12/2020) Family history of colon cancer (Acute) Hypokalemia due to loss of potassium (Acute) Anemia (Chronic) Sinus pressure (Acute) BRBPR (bright red blood per rectum) (Acute) Ileitis (Acute) DVT prophylaxis (Acute) Discharge planning issues (Acute) Allergic rhinitis (Chronic) Vomiting and diarrhea (Acute) Sinusitis, acute, maxillary (Acute) Medical History Chronic back pain greater than 3 months duration Chronic maxillary sinusitis Chronic prescription opiate use Chronic rhinitis Depression GERD (gastroesophageal reflux disease) Insomnia Panic attack Smoker Surgical History (Updated 01/13/21 @ 15:13 by Leonor Marshall RN) History of colonoscopy with polypectomy (~12/25/20) Social History Smoking/Tobacco Use Status: Current every day Tobacco Type: cigarettes Years smoked: 20 Counseling given: provider counseling Smoking risk assessment performed?: Yes Alcohol Intake: former Drug use: Never Substance use type: does not use current occupation: Works on farm Do you feel safe at home: Yes Do you feel safe in your relationship?: Yes Exam Narrative Exam Narrative: Awake alert oriented x3 calm no acute distress Normocephalic atraumatic PERRLA EOMI MMM anicteric Chest clear to auscultation bilaterally Heart regular rhythm and rate Abdomen soft nondistended diffuse tenderness on left lower quadrant and right lower quadrant. He also has tenderness overlying the inguinal canal bilaterally. I do not feel any abnormalities. No lymph adenopathies in the inguinal area. Extremities within normal limits Neuro 2-12 grossly intact Psych normal Skin no rashes Course Vital Signs Vital signs: Vital Signs Temperature 36.7 C 03/18/22 12:12 Pulse 101 H 03/18/22 12:12 Respiratory Rate 18 03/18/22 12:12 Blood Pressure 127/83 03/18/22 12:12 Pulse Oximetry 98 03/18/22 12:12 Temperature 36.7 C 03/18/22 12:12 Temperature Source Skin 03/18/22 12:12 Pulse 101 H 03/18/22 12:12 Respiratory Rate 18 03/18/22 12:12 Respiratory Effort 03/18/22 12:18 Blood Pressure 127/83 03/18/22 12:12 Pulse Oximetry 98 03/18/22 12:12 Oxygen Delivery Method Room Air 03/18/22 12:12 Oxygen Flow Rate 0 03/18/22 12:12 Pain Level 5 03/18/22 12:55 Lab/Test Results Lab/Test Results: Laboratory Tests Range/Units 03/18/22 03/18/22 03/18/22 12:28 12:45 12:45 WBC (4.4-10.8) 10^3/uL 12.90 H RBC (4.36-5.78) 10^6/uL 4.88 Hgb (13.5-17.5) g/dL 14.4 Hct (40.0-50.0) % 43.9 MCV (80-95) fL 90 MCH (27.0-33.0) pg 29.5 MCHC (32.0-36.0) % 32.8 RDW (11.8-14.1) % 12.3 Plt Count (130-400) 10^3/uL 312 MPV (8.0-11.0) fL 8.8 Immature Gran % 0.5 Neutrophils % 73.1 Lymphocytes % 18.5 Monocytes % 5.8 Eosinophils % 1.9 Basophils % 0.2 Nucleated RBC % (0.0-0.3) % 0.0 Absolute Neutrophils (1.2-6.7) 10^3/uL 9.43 H Absolute Lymphocytes (1.2-3.4) 10^3/uL 2.39 Absolute Monocytes (0.1-0.8) 10^3/uL 0.75 Absolute Eosinophils (0.0-0.7) 10^3/uL 0.25 Absolute Basophils (0.0-0.2) 10^3/uL 0.03 Sodium (136-145) mmol/L 141 Potassium (3.5-5.1) mmol/L 3.6 Chloride (98-107) mmol/L 103 Carbon Dioxide (21.0-32.0) mmol/L 30.0 Anion Gap (3-11) mmol/L 8.0 BUN (7-18) mg/dL 11 Creatinine (0.70-1.30) mg/dL 1.0 Est GFR (CKD-EPI 2020) (mL/min/1.73m2) 93.42 Glucose (74-106) mg/dL 116 H Calcium (8.5-10.1) mg/dL 9.3 Total Bilirubin (0.2-1.0) mg/dL 0.5 AST (15-37) U/L 16 ALT (16-63) U/L 19 Alkaline Phosphatase (46-116) U/L 83 Total Protein (6.4-8.2) g/dL 7.9 Albumin (3.4-5.0) g/dL 4.1 Urine Color (Yellow) Yellow Urine Clarity (Clear) Clear Urine pH (5-8) 6.0 Ur Specific [place] (1.005-1.025) 1.015 Urine Protein (Negative) mg/dL Negative Urine Ketones (Negative) mg/dL Negative Urine Blood (Negative) Negative Urine Nitrite (Negative) Negative Urine Bilirubin (Negative) Negative Urine Urobilinogen (Up TO 0.2) EU/dL 0.2 Ur Leukocyte Esterase (Negative) Negative Urine Glucose (Negative) mg/dL Negative
[2022-03-18] MEDS: Normal Saline - Diluent 50 ML VIAL IJ (13:22)
[2022-03-18] MEDS: Omnipaque 350 MG/ML 100 ML BTL IJ (13:22)
[2022-03-18] MEDS: Normal Saline Flush 10 ML SYR IVP (13:23)
[2022-03-18 14:52] VITALS: BP 136/82; PULSE 78; RESP 19; TEMP 37.3; O2SAT 97
== END 2022-03-18 15:00 | disposition home or self-care (01) ==
PROVIDERS: Emergency Provider Emergency Medicine; PCP Family Medicine
DX: R10.31 Right lower quadrant pain (principal); R10.32 Left lower quadrant pain
CPT/HCPCS: 80053; 96361; 96374; 99285; 74177; 81003; 85025; 99284; J1885; J3490

== ENCOUNTER 2022-03-19 13:54 | Emergency (ER) | payer MEDICARE, MEDICAID, SELFPAY ==
[2022-03-19 13:57] VITALS: BP 128/80; PULSE 94; RESP 18; TEMP 37; O2SAT 100
--- NOTE | 2022-03-19 14:51 | ED.GENADUL_ITS ---
Discharge Plan Discharge Details Chief Complaint: Abd Prob Primary Care Provider: Lenin Santiago ED Provider: Mannie Guevara Home Meds and New Rx's Prescriptions: No Action omeprazole 20 MG capsule,delayed release(DR/EC) 40 mg PO BID paroxetine HCl 40 MG tablet 50 mg PO HS Label Comments: 40mg tab and 10 mg tab for total of 50mg dose oxycodone-acetaminophen [Percocet] 5-325 mg Tablet 1 tab PO TID PRN pregabalin 50 mg Capsule 50 mg PO BID cyclobenzaprine 5 mg tablet 5 mg PO HS lidocaine [Lidoderm] 5 % adhesive patch,medicated 1 patch topical DAILY PRN (Reason: back pain) Qty: 15 0RF Rx Instructions: leave on most painful area for up to 12 hrs cyclobenzaprine 5 mg tablet 5 mg PO QHS PRN (Reason: muscle spasm) Qty: 7 0RF Medical Decision Making Patient presenting to the emergency department for chief complaint of bilateral groin pain. Patient denies any injury or trauma, does state some associated constipation. Reports significant amount of pain and discomfort with movement of the lower extremities. Patient has significant past medical history of multiple back surgeries with hardware placement. Patient denies any numbness or tingling, loss of bowel or bladder dysfunction, weakness to the lower extremities. Physical exam is overall unremarkable and no palpable tenderness is noted with palpation of the groin, male genitalia is again unremarkable, abdominal exam is also unremarkable. Of notation when patient moves lower extremities he does elicit significant amount of pain. DTRs are also intact bilateral along with pulses. Patient was seen yesterday in the emergency department and had full abdominal work-up with no emergent findings noted. Patient back today for worsening pain and discomfort. Given nondiagnostic exam and CT imaging performed yesterday we will plan on treating patient's pain with IV acetaminophen and diazepam and rechecking labs along with urinalysis. Reviewed patient's labs and CBC is completely normal with actually improvement from yesterday, CMP shows low ALT at 15 otherwise again completely normal, urinalysis also reviewed and is normal with no signs of blood or infectious findings. Pending D-dimer I did speak with patient who stated slight improvement after IV acetaminophen and Valium but still having sharp deep pain in his groin bilaterally. Given the patient did state he had perceived cold feet which is abnormal we will proceed with CTA of abdomen and pelvis to look for any potential vascular abnormalities. Other consideration is occult injury with muscular spasms. HPI General Mode of arrival: wheelchair . Date/Time Provider Initiated Documentation: 03/19/22 13:57 . Limitations to Documentation: no limitations . Information obtained by: patient and RN notes reviewed . History of Present Illness 46 year old M presents to the emergency department with the chief complaint of groin pain , described as moderate and severe, with intensity rated at 9. Quality is described as sharp, and is localized to the lower extremity. Patient distal. Patient started experiencing this week(s) and it has been constant. Immobilization improves symptom(s), Movement worsens symptoms . Patient notes denies fever/chills and nausea/vomiting. Patient did receive the following treatments prior to arrival, other (Normally prescribed Percocet) Related Data Home Medications Medication Instructions Recorded Confirmed omeprazole 20 mg capsule,delayed 40 mg PO BID 03/13/14 03/19/22 release paroxetine HCl 40 mg tablet 50 mg PO HS 03/13/14 03/19/22 oxycodone-acetaminophen 5 mg-325 1 tab PO TID PRN 06/10/18 03/19/22 mg tablet (Percocet) pregabalin 50 mg capsule 50 mg PO BID 05/10/19 03/19/22 cyclobenzaprine 5 mg tablet 5 mg PO HS 11/16/20 10/15/21 cyclobenzaprine 5 mg tablet 5 mg PO QHS PRN muscle spasm #7 10/15/21 tabs lidocaine 5 % topical patch 1 patch topical DAILY PRN back 10/15/21 (Lidoderm) pain #15 ea Previous Rx's Medication Instructions Recorded cyclobenzaprine 5 mg tablet 5 mg PO QHS PRN muscle spasm #7 10/15/21 tabs lidocaine 5 % topical patch 1 patch topical DAILY PRN back 10/15/21 (Lidoderm) pain #15 ea Allergies Allergy/AdvReac Type Severity Reaction Status Date / Time house dust mite AdvReac Intermediate nasal Unverified 03/19/22 14:01 congestion mold AdvReac Mild rhinitis, Verified 03/19/22 14:01 sneezing General Stated Complaint: Abd Prob TJ: 3 Review of Systems Constitutional Constitutional: Denies chills, Denies fever(s) and Denies poor appetite Cardiovascular Cardiovascular: Denies chest pain and Denies dyspnea Respiratory Respiratory: Denies dyspnea Gastrointestinal Gastrointestinal: Denies abdominal pain, Reports change in bowel habits, Reports constipation, Denies fecal incontinence, Denies nausea and Denies vomiting Genitourinary Genitourinary: Reports oliguria, Denies genital pain, Denies dysuria, Denies flank pain, Denies scrotal swelling and Denies testicular pain Musculoskeletal Musculoskeletal: Reports back pain (Chronic without change in level or pattern) Integumentary/Breasts Skin/Breast: Denies erythema and Denies rash Neurologic Neurologic: Denies paresthesias PFSH All Active Problems Abdominal pain (Acute) Hyperplastic colon polyp (Acute ~12/2020) Family history of colon cancer (Acute) Hypokalemia due to loss of potassium (Acute) Anemia (Chronic) Sinus pressure (Acute) BRBPR (bright red blood per rectum) (Acute) Ileitis (Acute) DVT prophylaxis (Acute) Discharge planning issues (Acute) Allergic rhinitis (Chronic) Vomiting and diarrhea (Acute) Sinusitis, acute, maxillary (Acute) Medical History Chronic back pain greater than 3 months duration Chronic maxillary sinusitis Chronic prescription opiate use Chronic rhinitis Depression GERD (gastroesophageal reflux disease) Insomnia Panic attack Smoker Surgical History History of colonoscopy with polypectomy (~12/25/20) Social History Smoking/Tobacco Use Status: Current every day Tobacco Type: cigarettes Years smoked: 20 Counseling given: provider counseling Smoking risk assessment performed?: Yes Alcohol Intake: former Drug use: Never Substance use type: does not use current occupation: Works on farm Do you feel safe at home: Yes Do you feel safe in your relationship?: Yes Exam Const General: cooperative Orientation: alert, awake and oriented x3 Resp Effort & Inspection: normal respiratory effort and able to speak in complete sentences Auscultation: clear to auscultation bilaterally Cardio Rate: regular rate Rhythm: regular rhythm Heart Sounds: S1 normal and S2 normal GI Palpation: soft, no hepatosplenomegaly, not firm, no guarding, no masses, no pulsatile masses, not rigid, no splenomegaly and nontender Auscultation: normal bowel sounds Male General Exam: Yes normal external exam, No inguinal lymphadenopathy and Yes other Penis: normal penis Meatus: meatus normal Scrotum: scrotum normal Testes: normal, testicular lie normal and epididymides normal Back/Spine/Pelvis Back: no CVA tenderness Skin General skin exam: no rashes or lesions noted Neuro General: patient alert, patient awake, patient oriented x3, gait normal and moves all extremities Course Vital Signs Vital signs: Vital Signs Temperature 37.0 C 03/19/22 13:57 Pulse 94 H 03/19/22 13:57 Respiratory Rate 18 03/19/22 13:57 Blood Pressure 128/80 03/19/22 13:57 Pulse Oximetry 100 03/19/22 13:57 Temperature 37.0 C 03/19/22 13:57 Temperature Source Temporal Artery Scan 03/19/22 13:57 Pulse 94 H 03/19/22 13:57 Respiratory Rate 18 03/19/22 13:57 Respiratory Effort Non-Labored 03/19/22 14:03 Blood Pressure 128/80 03/19/22 13:57 Blood Pressure Position Sitting 03/19/22 13:57 Pulse Oximetry 100 03/19/22 13:57 Oxygen Delivery Method Room Air 03/19/22 13:57 Oxygen Flow Rate 0 03/19/22 13:57 Sign Out Sign Out Data: Sign Out Comment: Patient pending CTA imaging for bilateral groin pain, reassessment and disposition. Last updated by Mannie Guevara NP at 03/19/22 15:39
[2022-03-19 14:55] LABS: Bilirubin Negative (Negative); Blood Negative (Negative); Clarity Clear (Clear); Glucose Negative (Negative); Ketones Negative (Negative); Leukocyte Esterase Negative (Negative); Nitrite Negative (Negative); Urobilinogen 0.2 EU/dL (Up TO 0.2)
[2022-03-19] MEDS: Normal Saline 1,000 ML 1000 ML IV (14:55)
[2022-03-19 15:02] LABS: Abs Immature Grans 0.03 10^3/uL (0.0-0.06); Absolute Basophil Count 0.03 10^3/uL (0.0-0.2); Absolute Eosinophil Count 0.26 10^3/uL (0.0-0.7); Absolute Lymphocyte Count 2.66 10^3/uL (1.2-3.4); Absolute Monocyte Count 0.67 10^3/uL (0.1-0.8); Absolute Neutrophil Count 6.49 10^3/uL (1.2-6.7); Basophils % 0.3; Eosinophils % 2.6; HCT 40.6 % (40.0-50.0); HGB 13.7 g/dL (13.5-17.5); Immature Grans % 0.3; Lymphocytes % 26.2; MCHC 33.7 % (32.0-36.0); MCV 89 fL (80-95); MPV 8.6 fL (8.0-11.0); Monocytes % 6.6; Platelet Count 277 10^3/uL (130-400); RBC 4.56 10^6/uL (4.36-5.78); RDW 12.1 % (11.8-14.1); RDW-SD 39.6 fL; WBC 10.14 10^3/uL (4.4-10.8)
[2022-03-19] MEDS: diazePAM 10 MG/2 ML SYR 5 MG IVP (15:05)
[2022-03-19] MEDS: ACETAMINOPHEN 1,000 MG/100 ML BTL 400 MG IVPB (15:09)
[2022-03-19 15:15] LABS: ALT 15 U/L (16-63); AST 15 U/L (15-37); Albumin 3.7 g/dL (3.4-5.0); Alkaline Phosphatase 77 U/L (46-116); BUN 9 mg/dL (7-18); Bilirubin, Total 0.4 mg/dL (0.2-1.0); CREATININE 0.8 mg/dL (0.70-1.30); Calcium 8.9 mg/dL (8.5-10.1); Chloride 105 mmol/L (98-107); Estimated GFR 109.85 (mL/min/1.73m2); Glucose 97 mg/dL (74-106); Magnesium 1.8 mg/dL (1.8-2.4); Potassium 3.8 mmol/L (3.5-5.1); Sodium 141 mmol/L (136-145); Total Protein 7.4 g/dL (6.4-8.2)
--- NOTE | 2022-03-19 15:30 | DI.CT_ITS ---
Exam(s) CT ABDOMEN PELVIS CTA EXAM: CT ABDOMEN PELVIS CTA CLINICAL HISTORY: bilateral groin pain. TECHNIQUE: Imaging Protocol: Axial CT angiography was performed with multi-slice acquisition and m ulti-planar and/or 3D reconstructions. CONTRAST MATERIAL: Intravenous: Omnipaque 350 Contrast volume:100mL Oral: No COMPARISON: CT CT ABDOMEN PELVIS W from 03/18/2022 FINDINGS: ABDOMEN AND PELVIS: Abdomen: Celiac axis/mesenteric arteries: No evidence of occlusion or significant stenosis. Renal Arteries: No evidence of occlusion or significant stenosis. There is a single renal artery perf using each kidney. Aorta: No evidence of occlusion or significant stenosis. No aneurysm or dissection. Pelvis: Iliac Arteries: No evidence of occlusion or significant stenosis. Common Femoral Arteries: No evidence of occlusion or significant stenosis. ABDOMEN: Lung bases: Unremarkable. Liver: Normal density. No measurable mass. Portal, Superior Mesenteric, and Splenic Veins: Unremarkable. Gallbladder and Biliary Tract: No radiodense calculus or dilation. Pancreas: Normal density, no abnormal calcifications or inflammatory process. Spleen: Normal. Adrenals: There are stable bilateral adrenal nodules. Kidneys: Normal size, contour and axis. No radiodense stones or obstructive uropathy. There is a stab le small left renal cyst. Bowel: No obstruction or bowel wall thickening. Appendix is unremarkable. Peritoneal Cavity: No ascites, collection or mesenteric inflammatory response. No free air. Lymph Nodes: Within normal limits. Bones: Within normal limits for the patient's age. Postsurgical changes are seen in the lumbosacral spine. Soft Tissues: Unremarkable. PELVIS: Bladder: Symmetric distention, no gross wall thickening. Reproductive Organs: Unremarkable as visualized. Lymph Nodes: Within normal limits. Bones: Within normal limits. IMPRESSION: 1. No aneurysm, dissection occlusion or significant stenosis of the abdominal arteries. 2. No acute abdominal or pelvic process. RADIATION DOSE DELIVERED: 1,076.52mGy.cm Total DLP DATA REPOSITORY: All CT scans at this facility are submitted to the National Radiology Data Registry (NRDR) Dose Index Registry (DIR) with the [employer] (ACR). RADIATION OPTIMIZATION: All CT scans at this facility use at least one of these dose optimization te chniques: automated exposure control; mA and/or kV adjustment per patient size (includes targeted exa ms where dose is matched to clinical indication); or iterative reconstruction.
[2022-03-19 15:31] LABS: D-Dimer 513 ng/mlFEU (<500)
[2022-03-19] MEDS: Omnipaque 350 MG/ML 100 ML BTL IJ (16:20)
[2022-03-19] MEDS: Normal Saline - Diluent 50 ML VIAL IJ (16:20)
[2022-03-19] MEDS: Normal Saline Flush 10 ML SYR IVP (16:21)
--- NOTE | 2022-03-19 16:40 | DI.VRAD_ITS ---
PROCEDURE INFORMATION: Exam: CTA Abdomen and Pelvis With Contrast Exam date and time: 03/19/2022 4:14 PM Age: 46 years old Clinical indication: Other: Bilateral groin pain; Prior surgery; Surgery date: 6+ months; Surgery type: Spine TECHNIQUE: Imaging protocol: Computed tomographic angiography of the abdomen and pelvis with contrast. 3D rendering (Not supervised by radiologist): MIP and/or 3D reconstructed images were created by the technologist. Contrast material: OMNIPAQUE 350; Contrast volume: 100 ml; Contrast route: INTRAVENOUS (IV); COMPARISON: CT ABDOMEN PELVIS W 03/18/2022 1:14 PM FINDINGS: Aorta: No aortic aneurysm. No aortic dissection. Celiac trunk and mesenteric arteries: No occlusion or significant stenosis. Renal arteries: No occlusion or significant stenosis. Right iliac arteries: No occlusion or significant stenosis. Left iliac arteries: No occlusion or significant stenosis. Liver: No mass. Gallbladder and bile ducts: Gallbladder partially contracted. Pancreas: Unremarkable. No mass. No ductal dilation. Spleen: Unremarkable. No splenomegaly. Adrenal glands: There appear to be 2 right adrenal nodules not significantly changed from previous study. The larger focus measures up to 1.4 cm. Kidneys and ureters: There are small bilateral renal cysts. Renal perfusion is symmetric without hydronephrosis or hydroureter. No obstructing calculus seen. Stomach and bowel: There is some mild wall thickening involving jejunal bowel loops without abnormal distention. Appendix: No evidence of appendicitis. Intraperitoneal space: Unremarkable. No free air. No significant fluid collection. Lymph nodes: Unremarkable. No enlarged lymph nodes. Urinary bladder: Unremarkable. No mass. Reproductive: Unremarkable as visualized. Bones/joints: No acute fracture. Status post posterior fusion L4-S1 with L4-L5 anterior fusion. Soft tissues: Unremarkable. IMPRESSION: Possible enteritis Dictated and Authenticated by: Estephanie Potter MD. Ordering:HARI Chand MD
--- NOTE | 2022-03-19 16:59 | W.EDPROG ---
Date of service: 03/19/22 Time of Service: 16:59 Medical Decision Making This is a 46-year-old gentleman who I assumed care of from my colleague MIGUELITO Guevara at approximately 1530, please see his initial HPI and examination. At time of signout awaiting D-dimer as well as a CTA of his abdomen and pelvis. Patient reports 5-day history of bilateral groin, pelvic pain, abdominal pressure, decreased appetite, decreased bowel movements. Seen in the ER yesterday, laboratory values and CT imaging completed. Reports today symptoms are ongoing, no significant improvement. D-dimer minimally elevated at 513. His examination is not extremely concerning nor consistent with DVT, I do not believe that he requires anticoagulation until Monday morning when I will get him an outpatient ultrasound. Denies chest pain or shortness of breath. CT imaging reveals possible enteritis. He does report pelvic pain, abdominal pressure, decreased bowel movements, decreased appetite. While enteritis could certainly be an atypical presentation, his examination does appear to be more muscular and involve his bilateral groin region. Penis and testicles unremarkable. Denies any pain shooting down his legs. Negative Homans' sign bilateral. Normal pedal pulses and capillary refill. No pedal edema. Patient reports at rest the pain is a 4 or 5 but with movement, bearing weight, etc. pain is much more significant. He does already have a prescription for Percocet and does not want any additional pain medication but he is agreeable to a take-home pack of Flexeril. Clinically he appears well, nontoxic, neurologically intact. Standard discharge and return precautions were provided. Patient understands, is agreeable to this plan, and has no additional questions or concerns upon discharge. This documentation was generated using [employer] system, please disregard any oddities of phrase or misspellings. Medical Records Medical records reviewed: Yes I reviewed the patient's medical records. Imaging Data Radiologic Study: Attestation: I personally reviewed and interpreted this imaging study as follows: Imaging: CT Scan Radiologist's impression: PROCEDURE INFORMATION: Exam: CTA Abdomen and Pelvis With Contrast Exam date and time: 03/19/2022 4:14 PM Age: 46 years old Clinical indication: Other: Bilateral groin pain; Prior surgery; Surgery date: 6+ months; Surgery type: Spine TECHNIQUE: Imaging protocol: Computed tomographic angiography of the abdomen and pelvis with contrast. 3D rendering (Not supervised by radiologist): MIP and/or 3D reconstructed images were created by the technologist. Contrast material: OMNIPAQUE 350; Contrast volume: 100 ml; Contrast route: INTRAVENOUS (IV); COMPARISON: CT ABDOMEN PELVIS W 03/18/2022 1:14 PM FINDINGS: Aorta: No aortic aneurysm. No aortic dissection. Celiac trunk and mesenteric arteries: No occlusion or significant stenosis. Renal arteries: No occlusion or significant stenosis. Right iliac arteries: No occlusion or significant stenosis. Left iliac arteries: No occlusion or significant stenosis. Liver: No mass. Gallbladder and bile ducts: Gallbladder partially contracted. Pancreas: Unremarkable. No mass. No ductal dilation. Spleen: Unremarkable. No splenomegaly. Adrenal glands: There appear to be 2 right adrenal nodules not significantly changed from previous study. The larger focus measures up to 1.4 cm. Kidneys and ureters: There are small bilateral renal cysts. Renal perfusion is symmetric without hydronephrosis or hydroureter. No obstructing calculus seen.Stomach and bowel: There is some mild wall thickening involving jejunal bowel loops without abnormal distention. Appendix: No evidence of appendicitis. Intraperitoneal space: Unremarkable. No free air. No significant fluid collection. Lymph nodes: Unremarkable. No enlarged lymph nodes. Urinary bladder: Unremarkable. No mass. Reproductive: Unremarkable as visualized. Bones/joints: No acute fracture. Status post posterior fusion L4-S1 with L4-L5 anterior fusion. Soft tissues: Unremarkable. IMPRESSION: Possible enteritis Lab Data Lab results reviewed: Yes I reviewed the patient's lab results. Labs: Laboratory Tests Range/Units 03/19/22 03/19/22 03/19/22 14:46 14:55 14:55 WBC (4.4-10.8) 10^3/uL RBC (4.36-5.78) 10^6/uL Hgb (13.5-17.5) g/dL Hct (40.0-50.0) % MCV (80-95) fL MCH (27.0-33.0) pg MCHC (32.0-36.0) % RDW (11.8-14.1) % Plt Count (130-400) 10^3/uL MPV (8.0-11.0) fL Immature Gran % Neutrophils % Lymphocytes % Monocytes % Eosinophils % Basophils % Nucleated RBC % (0.0-0.3) % Absolute Neutrophils (1.2-6.7) 10^3/uL Absolute Lymphocytes (1.2-3.4) 10^3/uL Absolute Monocytes (0.1-0.8) 10^3/uL Absolute Eosinophils (0.0-0.7) 10^3/uL Absolute Basophils (0.0-0.2) 10^3/uL D-Dimer (<500) ng/mlFEU 513 H Sodium (136-145) mmol/L 141 Potassium (3.5-5.1) mmol/L 3.8 Chloride (98-107) mmol/L 105 Carbon Dioxide (21.0-32.0) mmol/L 27.0 Anion Gap (3-11) mmol/L 9.0 BUN (7-18) mg/dL 9 Creatinine (0.70-1.30) mg/dL 0.8 Est GFR (CKD-EPI 2020) (mL/min/1.73m2) 109.85 Glucose (74-106) mg/dL 97 Calcium (8.5-10.1) mg/dL 8.9 Magnesium (1.8-2.4) mg/dL 1.8 Total Bilirubin (0.2-1.0) mg/dL 0.4 AST (15-37) U/L 15 ALT (16-63) U/L 15 L Alkaline Phosphatase (46-116) U/L 77 Total Protein (6.4-8.2) g/dL 7.4 Albumin (3.4-5.0) g/dL 3.7 Urine Color (Yellow) Yellow Urine Clarity (Clear) Clear Urine pH (5-8) 6.0 Ur Specific [place] (1.005-1.025) 1.020 Urine Protein (Negative) mg/dL Negative Urine Ketones (Negative) mg/dL Negative Urine Blood (Negative) Negative Urine Nitrite (Negative) Negative Urine Bilirubin (Negative) Negative Urine Urobilinogen (Up TO 0.2) EU/dL 0.2 Ur Leukocyte Esterase (Negative) Negative Urine Glucose (Negative) mg/dL Negative Range/Units 03/19/22 14:55 WBC (4.4-10.8) 10^3/uL 10.14 RBC (4.36-5.78) 10^6/uL 4.56 Hgb (13.5-17.5) g/dL 13.7 Hct (40.0-50.0) % 40.6 MCV (80-95) fL 89 MCH (27.0-33.0) pg 30.0 MCHC (32.0-36.0) % 33.7 RDW (11.8-14.1) % 12.1 Plt Count (130-400) 10^3/uL 277 MPV (8.0-11.0) fL 8.6 Immature Gran % 0.3 Neutrophils % 64.0 Lymphocytes % 26.2 Monocytes % 6.6 Eosinophils % 2.6 Basophils % 0.3 Nucleated RBC % (0.0-0.3) % 0.0 Absolute Neutrophils (1.2-6.7) 10^3/uL 6.49 Absolute Lymphocytes (1.2-3.4) 10^3/uL 2.66 Absolute Monocytes (0.1-0.8) 10^3/uL 0.67 Absolute Eosinophils (0.0-0.7) 10^3/uL 0.26 Absolute Basophils (0.0-0.2) 10^3/uL 0.03 D-Dimer (<500) ng/mlFEU Sodium (136-145) mmol/L Potassium (3.5-5.1) mmol/L Chloride (98-107) mmol/L Carbon Dioxide (21.0-32.0) mmol/L Anion Gap (3-11) mmol/L BUN (7-18) mg/dL Creatinine (0.70-1.30) mg/dL Est GFR (CKD-EPI 2020) (mL/min/1.73m2) Glucose (74-106) mg/dL Calcium (8.5-10.1) mg/dL Magnesium (1.8-2.4) mg/dL Total Bilirubin (0.2-1.0) mg/dL AST (15-37) U/L ALT (16-63) U/L Alkaline Phosphatase (46-116) U/L Total Protein (6.4-8.2) g/dL Albumin (3.4-5.0) g/dL Urine Color (Yellow) Urine Clarity (Clear) Urine pH (5-8) Ur Specific [place] (1.005-1.025) Urine Protein (Negative) mg/dL Urine Ketones (Negative) mg/dL Urine Blood (Negative) Urine Nitrite (Negative) Urine Bilirubin (Negative) Urine Urobilinogen (Up TO 0.2) EU/dL Ur Leukocyte Esterase (Negative) Urine Glucose (Negative) mg/dL Exam Const General: cooperative, healthy appearing, comfortable and no acute distress Orientation: alert and awake [facility] Head: normal to inspection, normocephalic and atraumatic Face and sinus: normal facial exam Mouth: moist mucous membranes Eyes Conjunctivae: conjunctivae normal Neck Neck: normal visual inspection, full ROM, no meningeal signs, trachea midline and supple Resp Effort & Inspection: normal respiratory effort and able to speak in complete sentences Cardio Rate: regular rate Rhythm: regular rhythm GI Inspection: normal to inspection Palpation: soft, not firm, no guarding, no pulsatile masses and tender (Diffuse lower abdominal pressure.) Auscultation: normal bowel sounds Male General Exam: Yes normal external exam Penis: normal penis Scrotum: scrotum normal Testes: normal Back/Spine/Pelvis Back: no CVA tenderness and No back tenderness Skin General skin exam: no rashes or lesions noted Neuro General: patient alert, patient awake, moves all extremities and no focal motor deficits Cognition: normal cognition Speech: speech normal Gait: antalgic Motor: muscle tone normal throughout Sensory Exam: no sensory deficits noted Extrem General: normal to inspection, full ROM, capillary refill normal, no pedal edema and no calf tenderness Psych Appearance: grossly normal Mental Status: mental status grossly normal Sign Out Sign Out Data: Sign Out Comment: Patient pending CTA imaging for bilateral groin pain, reassessment and disposition. Last updated by Mannie Guevara NP at 03/19/22 15:39 Discharge Plan Disposition Patient Disposition: Home Discharge Details Clinical Impression: Abdominal pain Primary Care Provider: Lenin Santiago ED Provider: Chris Dobbs Home Meds and New Rx's Prescriptions: Continued omeprazole 20 MG capsule,delayed release(DR/EC) 40 mg PO BID paroxetine HCl 40 MG tablet 50 mg PO HS Label Comments: 40mg tab and 10 mg tab for total of 50mg dose oxycodone-acetaminophen [Percocet] 5-325 mg Tablet 1 tab PO TID PRN pregabalin 50 mg Capsule 50 mg PO BID Discharge Instructions Instructions: Abdominal Pain (ED) Additional Instructions: Work-up in the ER does not reveal any obvious emergent process. Plan to set you up for an ultrasound of your bilateral lower extremities on Monday, the ultrasound department should be contacting you on Monday to set this appointment up, after the appointment you will check back into the ER for ultrasound results and reevaluation.. In the meantime take your medications as directed, including your Percocet for discomfort. I am also providing you a take-home pack of Flexeril. Please watch for new or worsening symptoms and return to the ER for any concerns. Lastly, please contact your primary care provider on Monday to discuss your ER visit, ongoing symptoms, need for outpatient reevaluation.
--- NOTE | 2022-03-19 17:03 | NUR.NOTE ---
Nursing Note: Order faxed to DI for Bilateral lower extremity venous US; for bilateral groin pain, elevated ddimer. Follow up in ED, to be done 03/21/22.
[2022-03-19] MEDS: Cyclobenzaprine 10 MG TAB, 3 TABS/BTL PO (17:10)
[2022-03-19 17:14] VITALS: BP 125/80; PULSE 68; TEMP 36.9; O2SAT 97
== END 2022-03-19 17:22 | disposition home or self-care (01) ==
PROVIDERS: Nurse Practitioner Family; Emergency Provider Physician Assistant; PCP Family Medicine
DX: R10.31 Right lower quadrant pain (principal); R10.32 Left lower quadrant pain; R10.2 Pelvic and perineal pain; R79.89 Other specified abnormal findings of blood chemistry; K59.00 Constipation, unspecified
CPT/HCPCS: 80053; 96361; 96374; 96375; 99285; 74174; 81003; 83735; 85025; 85379; 99284; J0131; J3360; J3490

== ENCOUNTER 2022-03-21 09:09 | Outpatient (CLI) | payer MEDICARE, MEDICAID, SELFPAY ==
--- NOTE | 2022-03-21 | DI.US_ITS ---
Exam(s) US EXTREMITY VENOUS BI EXAM: US EXTREMITY VENOUS BI CLINICAL HISTORY: Elevated D-Dimer, R79.1, bilateral groin pain. TECHNIQUE: Bilateral lower extremity venous ultrasound performed using grayscale, color-flow, and sp ectral Doppler analysis. COMPARISON: No exams were available for comparison FINDINGS: The right common femoral, femoral and popliteal veins demonstrate normal compressibility, augmentatio n, and color Doppler. The posterior tibial veins are patent. The saphenofemoral junctions are unremar kable. There is no evidence of a Zavala's cyst. The soft tissues are unremarkable. The left common femoral, femoral and popliteal veins demonstrate normal compressibility, augmentation , and color Doppler. The posterior tibial veins are patent. The saphenofemoral junctions are unremark able. There is no evidence of a Zavala's cyst. The soft tissues are unremarkable. IMPRESSION: 1. No evidence of a right lower extremity DVT. 2. No evidence of a left lower extremity DVT. 3. Findings were discussed with Dr. Delgado on 03/21/2022. DATA REPOSITORY:
== END 2022-03-21 09:29 ==
LOC: DI 09:11
PROVIDERS: PCP Family Medicine; Visit Provider Physician Assistant
DX: R79.1 Abnormal coagulation profile (principal); R10.31 Right lower quadrant pain; R10.32 Left lower quadrant pain
CPT/HCPCS: 93970

== ENCOUNTER 2022-03-21 11:00 | Emergency (ER) | payer MEDICARE, MEDICAID, SELFPAY ==
[2022-03-21 11:30] VITALS: BP 129/84; PULSE 98; RESP 18; TEMP 36.5; O2SAT 98
--- NOTE | 2022-03-21 11:33 | W.ED.GENAD ---
Discharge Plan Disposition Patient Disposition: Home Condition: Good Discharge Details Clinical Impression: Bilateral groin pain Primary Care Provider: Lenin Santiago ED Provider: Rob Delgado Home Meds and New Rx's Prescriptions: No Action omeprazole 20 MG capsule,delayed release(DR/EC) 40 mg PO BID paroxetine HCl 40 MG tablet 50 mg PO HS Label Comments: 40mg tab and 10 mg tab for total of 50mg dose oxycodone-acetaminophen [Percocet] 5-325 mg Tablet 1 tab PO TID PRN pregabalin 50 mg Capsule 50 mg PO BID Discharge Instructions Instructions: Musculoskeletal Pain (ED) Additional Instructions: Please continue to take the Tylenol and Motrin as needed for pain. Please stretch your inner thigh as we discussed together here in the ED. Please follow-up with your primary care provider and your learning disabilities specialist if needed. If you notice any worsening of your symptoms, or any new symptoms such as vomiting, diarrhea, fever, chills, shortness of breath, chest pain, numbness, weakness, or fainting , please return immediately to the emergency department for reevaluation. Please follow up with your primary care provider as soon as possible for reassessment and reevaluation. As always, it was a pleasure participating in your medical care today. Referrals: Lenin Santiago [Primary Care Provider] - Discharge Data Discharge Date/Time-TO BE ENTERED AT DEPARTURE: 03/21/22 11:50 Medical Decision Making 46-year-old male presents today for evaluation of recheck after ultrasound. Patient was here he 2 days ago, at that point he was seen and assessed for lower abdominal and pelvic/groin pain. CT scan at that time demonstrated enteritis, but no other significant abnormality. Low likelihood for DVT, however D-dimer was slightly elevated and so ultrasound was ordered for evaluation today. Patient has been taking NSAIDs and Percocets at home, without significant improvement. Ultrasound was performed and was negative today. He really presents for reassessment. No new complaints. Pain is present with movement of the legs. He denies fever or chills. No other complaints at this time. Patient appears notably clinically well. Physical exam of his hips demonstrate no hip tenderness. Mild tenderness over the abductor muscles of the medial thighs bilaterally. Suspect strain. Will recommend continued stretching, and NSAIDs as needed. Will place orthopedic consult. However I recommended to the patient that this is a last resort if the stretching and NSAIDs are no longer beneficial. No evidence of acute life-threatening etiology otherwise. With the ultrasound being negative for evidence of blood clot I do feel the patient is safe for discharge. I have extensively reviewed the treatment plan and discharge instructions with the patient. I have addressed all patient concerns at this time. The patient was made aware of what symptoms to monitor for that would warrant a return to the emergency department. Discussed the plan with the patient, they demonstrate verbal understanding and agreement with our assessment and plan at this time. The documentation in this chart was dictated using Briggo dictation software. Please excuse any dictation errors. FINDINGS: The right common femoral, femoral and popliteal veins demonstrate normal compressibility, augmentation, and color Doppler. The posterior tibial veins are patent. The saphenofemoral junctions are unremarkable. There is no evidence of a Zavala's cyst. The soft tissues are unremarkable. The left common femoral, femoral and popliteal veins demonstrate normal compressibility, augmentation, and color Doppler. The posterior tibial veins are patent. The saphenofemoral junctions are unremarkable. There is no evidence of a Zavala's cyst. The soft tissues are unremarkable. IMPRESSION: 1. No evidence of a right lower extremity DVT. 2. No evidence of a left lower extremity DVT. 3. Findings were discussed with Dr. Delgado on 03/21/2022. HPI General Date/Time Provider Initiated Documentation: 03/21/22 11:05. HPI Narrative: 46-year-old male presents today for evaluation of recheck after ultrasound. Patient was here he 2 days ago, at that point he was seen and assessed for lower abdominal and pelvic/groin pain. CT scan at that time demonstrated enteritis, but no other significant abnormality. Low likelihood for DVT, however D-dimer was slightly elevated and so ultrasound was ordered for evaluation today. Patient has been taking NSAIDs and Percocets at home, without significant improvement. Ultrasound was performed and was negative today. He really presents for reassessment. No new complaints. Pain is present with movement of the legs. He denies fever or chills. No other complaints at this time. Related Data Home Medications Medication Instructions Recorded Confirmed omeprazole 20 mg capsule,delayed 40 mg PO BID 03/13/14 03/21/22 release paroxetine HCl 40 mg tablet 50 mg PO HS 03/13/14 03/21/22 oxycodone-acetaminophen 5 mg-325 1 tab PO TID PRN 06/10/18 03/21/22 mg tablet (Percocet) pregabalin 50 mg capsule 50 mg PO BID 05/10/19 03/21/22 Allergies Allergy/AdvReac Type Severity Reaction Status Date / Time house dust mite AdvReac Intermediate nasal Unverified 03/19/22 14:01 congestion mold AdvReac Mild rhinitis, Verified 03/19/22 14:01 sneezing General Stated Complaint: Orthopedic TJ: 4 Review of Systems All systems reviewed & are unremarkable except as noted in HPI and below PFSH All Active Problems Abdominal pain (Acute) Bilateral groin pain (Acute) Hyperplastic colon polyp (Acute ~12/2020) Family history of colon cancer (Acute) Hypokalemia due to loss of potassium (Acute) Anemia (Chronic) Sinus pressure (Acute) BRBPR (bright red blood per rectum) (Acute) Ileitis (Acute) DVT prophylaxis (Acute) Discharge planning issues (Acute) Allergic rhinitis (Chronic) Vomiting and diarrhea (Acute) Sinusitis, acute, maxillary (Acute) Medical History Chronic back pain greater than 3 months duration Chronic maxillary sinusitis Chronic prescription opiate use Chronic rhinitis Depression GERD (gastroesophageal reflux disease) Insomnia Panic attack Smoker Surgical History History of colonoscopy with polypectomy (~12/25/20) Social History Smoking/Tobacco Use Status: Current every day Tobacco Type: cigarettes Years smoked: 20 Counseling given: provider counseling Smoking risk assessment performed?: Yes Alcohol Intake: former Drug use: Never Substance use type: does not use current occupation: Works on farm Do you feel safe at home: Yes Do you feel safe in your relationship?: Yes Exam Narrative Exam Narrative: 1.Const: Well-nourished, Well-developed, appearing stated age 2.Eyes: PERRL, no conjunctival injection, and symmetrical lids. 3.ENT: Atraumatic external nose and ears. Moist MM. Neck: Symmetric, trachea midline, No thyromegaly. 4.CVS: +S1/S2, No murmurs or gallops. Peripheral pulses 2+ and equal in all extremities. Brisk capillary refill in all extremities. 5.RESP: Unlabored respiratory effort. Clear to auscultation bilaterally. No wheezes rales or rhonchi 6.GI: Soft, Nontender/Nondistended, No hepatosplenomegaly. No guarding or rebound. 7.MSK: Normocephalic/Atraumatic, Extremities w/o deformity or ttp No cyanosis or clubbing, Normal movement of all extremities. Tenderness at the medial aspect of the proximal adductor tendons of the thighs. No tenderness in the inguinal canal. No penile tenderness. No redness to suggest infection 8.Skin: Warm, Dry. No rashes or lesions. 9.Neuro: customer success specialist II-XII grossly intact. Sensation grossly intact, no focal neurologic deficits. 10.Psych: (AAO) x3. Appropriate mood and affect Course Vital Signs Vital signs: Vital Signs Temperature 36.5 C 03/21/22 11:30 Pulse 98 H 03/21/22 11:30 Respiratory Rate 18 03/21/22 11:30 Blood Pressure 129/84 03/21/22 11:30 Pulse Oximetry 98 03/21/22 11:30 Temperature 36.5 C 03/21/22 11:30 Temperature Source Tympanic 03/21/22 11:30 Pulse 98 H 03/21/22 11:30 Respiratory Rate 18 03/21/22 11:30 Blood Pressure 129/84 03/21/22 11:30 Blood Pressure Position Sitting 03/21/22 11:30 Pulse Oximetry 98 03/21/22 11:30 Oxygen Delivery Method Room Air 03/21/22 11:30 Oxygen Flow Rate 0 03/21/22 11:30 Pain Level 8 03/21/22 11:30
== END 2022-03-21 11:50 | disposition home or self-care (01) ==
PROVIDERS: Emergency Provider Student in an Organized Health Care Education/Training Program; PCP Family Medicine
DX: R10.31 Right lower quadrant pain (principal); R10.32 Left lower quadrant pain

== ENCOUNTER 2022-04-21 09:23 | Emergency (ER) | payer MEDICARE, MEDICAID, SELFPAY ==
[2022-04-21 09:25] VITALS: PULSE 97; RESP 18; TEMP 36.5; O2SAT 98
[2022-04-21 09:29] VITALS: BP 108/70
--- NOTE | 2022-04-21 10:06 | ED.GENADUL_ITS ---
Discharge Plan Disposition Patient Disposition: Home Discharge Details Clinical Impression: Myalgia Primary Care Provider: Lenin Santiago ED Provider: Kerry Galaviz Home Meds and New Rx's Prescriptions: New diazepam [Valium] 5 mg tablet 5 mg PO TID PRNQty: 15 0RF Continued omeprazole 20 MG capsule,delayed release(DR/EC) 40 mg PO BID paroxetine HCl 40 MG tablet 50 mg PO HS Patient Comments: 40mg tab and 10 mg tab for total of 50mg dose oxycodone-acetaminophen [Percocet] 5-325 mg Tablet 1 tab PO TID PRN pregabalin 50 mg Capsule 50 mg PO BID Discharge Instructions Instructions: Musculoskeletal Pain (ED) Additional Instructions: Take Valium as needed for discomfort, use caution as this can be addictive, do not combine it with alcohol or operate your vehicle for 8 hours after taking it Please follow-up with your doctor and physical therapy, and supplying referral below Return earlier should you have new or worsening complaints including changes in bowel or bladder, fever or chills, rashes or lesions Stand Alone Forms: Physical Therapy Referral Referrals: Lenin Santiago [Primary Care Provider] - Discharge Data Discharge Date/Time-TO BE ENTERED AT DEPARTURE: 04/21/22 12:45 Medical Decision Making 46-year-old gentleman presents with groin pain, recurrent visits for similar symptoms, CTA and CT abdomen and pelvis she also evidence of acute abnormality x2 in the past month, will not repeat this He has had surgery several times on his lumbar spine, and wondering if this is referred pain, I will order lumbar spine MRI, this does not show evidence of acute abnormality per radiology interpretation my review Labs are reassuring including CRP presenting minimally elevated, no urinary symptoms, will hold on urine Patient had marked improvement of symptoms after Valium administration, I wonder if this is musculoskeletal in nature There is no evidence of any scrotal involvement He is also encouraged with his constipation to take MiraLAX daily He will need close outpatient reassessment, he is given a small amount of Valium for home He is given referral to physical therapy He is given low threshold to return should he have new or worsening complaints and crutches to assist with ambulation Return precautions reviewed in detail and patient expressed understanding Medical Records Medical records reviewed: Yes I reviewed the patient's medical records. Lab Data Lab results reviewed: Yes I reviewed the patient's lab results. HPI General Date/Time Provider Initiated Documentation: 04/21/22 09:28 . HPI Narrative: This 46-year-old male presents with report of upper thigh and groin pain since Monday. Last BM was reportedly on Monday. He denies any abdominal pain, chest pain, shortness of breath. He denies any dizziness or weakness. States the pain radiates from his back. He denies any weakness to extremities or numbness to his groin. He does take chronic opiates for back pain which is unchanged for him. Denies any additional complaints at this time. Pain is exacerbated with walking and motion. Related Data Home Medications Medication Instructions Recorded Confirmed omeprazole 20 mg capsule,delayed 40 mg PO BID 03/13/14 04/21/22 release paroxetine HCl 40 mg tablet 50 mg PO HS 03/13/14 04/21/22 oxycodone-acetaminophen 5 mg-325 1 tab PO TID PRN 06/10/18 04/21/22 mg tablet (Percocet) pregabalin 50 mg capsule 50 mg PO BID 05/10/19 04/21/22 diazepam 5 mg tablet (Valium) 5 mg PO TID PRN #15 tabs 04/21/22 Previous Rx's Medication Instructions Recorded diazepam 5 mg tablet (Valium) 5 mg PO TID PRN #15 tabs 04/21/22 Allergies Allergy/AdvReac Type Severity Reaction Status Date / Time house dust mite AdvReac Intermediate nasal Unverified 04/21/22 09:28 congestion mold AdvReac Mild rhinitis, Verified 04/21/22 09:28 sneezing General Stated Complaint: GenMedical TJ: 3 PFSH All Active Problems (Updated 04/21/22 @ 12:23 by NORMA Saldana) Myalgia (Acute) Hyperplastic colon polyp (Acute ~12/2020) Family history of colon cancer (Acute) Hypokalemia due to loss of potassium (Acute) Anemia (Chronic) Sinus pressure (Acute) BRBPR (bright red blood per rectum) (Acute) Ileitis (Acute) DVT prophylaxis (Acute) Discharge planning issues (Acute) Allergic rhinitis (Chronic) Vomiting and diarrhea (Acute) Sinusitis, acute, maxillary (Acute) Medical History Chronic back pain greater than 3 months duration Chronic maxillary sinusitis Chronic prescription opiate use Chronic rhinitis Depression GERD (gastroesophageal reflux disease) Insomnia Panic attack Smoker Surgical History History of colonoscopy with polypectomy (~12/25/20) Social History Smoking/Tobacco Use Status: Current every day Tobacco Type: cigarettes Years smoked: 20 Counseling given: provider counseling Smoking risk assessment performed?: Yes Alcohol Intake: former Drug use: Never Substance use type: does not use current occupation: Works on farm Do you feel safe at home: Yes Do you feel safe in your relationship?: Yes Exam Const General: cooperative, comfortable and no acute distress Orientation: alert and oriented x3 Resp Effort & Inspection: normal respiratory effort Auscultation: clear to auscultation bilaterally Cardio Rate: regular rate Rhythm: regular rhythm GI Inspection: normal to inspection Other: non-tender abdominal exam No abdominal bruit or pulsatile mass Back/Spine/Pelvis Back: no CVA tenderness Other: No CVA tenderness, mild Skin General skin exam: no rashes or lesions noted Neuro General: patient alert and patient oriented x3 Extrem Other: Tenderness to palpation along abductor muscles on right inner thigh, no rash or lesions, no firmness on palpation, distal pulses intact, sensation intact distally Course Vital Signs Vital signs: Vital Signs Temperature 36.5 C 04/21/22 09:25 Pulse 97 H 04/21/22 09:25 Respiratory Rate 18 04/21/22 09:25 Pulse Oximetry 98 04/21/22 09:25 Temperature 36.5 C 04/21/22 09:25 Temperature Source Oral 04/21/22 09:25 Pulse 97 H 04/21/22 09:25 Respiratory Rate 18 04/21/22 09:25 Respiratory Effort Normal, Non-Labored 04/21/22 09:28 Blood Pressure 108/70 04/21/22 09:29 Pulse Oximetry 98 04/21/22 09:25 Oxygen Delivery Method Room Air 04/21/22 09:25 Oxygen Flow Rate 0 04/21/22 09:25
[2022-04-21] MEDS: diazePAM 10 MG/2 ML SYR 5 MG IVP ×2 (10:11→12:38)
[2022-04-21] MEDS: Ketorolac 15 MG/ML VIAL IM (10:12)
[2022-04-21 10:18] LABS: Abs Immature Grans 0.04 10^3/uL (0.0-0.06); Absolute Basophil Count 0.05 10^3/uL (0.0-0.2); Absolute Eosinophil Count 0.26 10^3/uL (0.0-0.7); Absolute Lymphocyte Count 2.51 10^3/uL (1.2-3.4); Absolute Monocyte Count 0.78 10^3/uL (0.1-0.8); Absolute Neutrophil Count 6.18 10^3/uL (1.2-6.7); Basophils % 0.5; Eosinophils % 2.6; HCT 40.4 % (40.0-50.0); HGB 13.6 g/dL (13.5-17.5); Immature Grans % 0.4; Lymphocytes % 25.6; MCHC 33.7 % (32.0-36.0); MCV 89 fL (80-95); MPV 8.9 fL (8.0-11.0); Monocytes % 7.9; Platelet Count 241 10^3/uL (130-400); RBC 4.54 10^6/uL (4.36-5.78); RDW 12.2 % (11.8-14.1); RDW-SD 39.8 fL; WBC 9.82 10^3/uL (4.4-10.8)
[2022-04-21 10:33] LABS: ALT 18 U/L (16-63); AST 14 U/L (15-37); Albumin 3.5 g/dL (3.4-5.0); Alkaline Phosphatase 76 U/L (46-116); Anion Gap 8.6 mmol/L (3-11); BUN 13 mg/dL (7-18); Bilirubin, Total 0.3 mg/dL (0.2-1.0); C-Reactive Protein 2.74 mg/dL (0.0-0.3); CO2 27.4 mmol/L (21.0-32.0); CREATININE 0.9 mg/dL (0.70-1.30); Calcium 8.7 mg/dL (8.5-10.1); Chloride 104 mmol/L (98-107); Estimated GFR 106.01 (mL/min/1.73m2); Glucose 114 mg/dL (74-106); Sodium 140 mmol/L (136-145); Total Protein 7.2 g/dL (6.4-8.2)
[2022-04-21 11:18] LABS: Creatine Kinase 55 U/L (39-308)
--- NOTE | 2022-04-21 11:45 | DI.MRI_ITS ---
Exam(s) MR LUMBAR SPINE WO EXAM: MR LUMBAR SPINE WO CLINICAL HISTORY: back pain, prior fusion, groin pain, paresthesias. TECHNIQUE: Multiplanar multisequence MRI of the Lumbar spine was performed. COMPARISON: MR MR LUMBAR SPINE WO from 02/05/2020 CR XR LUMBAR SPINE COMPLETE from 10/15/2021 FINDINGS: Bones: The last intervertebral disc space is designated the L5/S1 level for the numbering purpose of this examination. The vertebral body heights are well maintained. Alignment is satisfactory. The ma rrow signal characteristics are unremarkable. Posterior fusion hardware noted at L4-5 which creates m ild artifact. Cord: The conus tip ends at the T12 level. It is of normal size and signal intensity. T12-L1: No disc herniations or bulges are present. No central spinal canal or neural foraminal stenos is. L1-2: No disc herniations or bulges are present. No central spinal canal or neural foraminal stenosis . L2-3: No disc herniations or bulges are present. No central spinal canal or neural foraminal stenosis . L3-4: No disc herniations or bulges are present. No central spinal canal or neural foraminal stenosis . L4-5: Postsurgical changes. Mild artifact from hardware limiting evaluation of neural foramen.. No central canal stenosis. Question of mild right neural foraminal narrowing. L5-S1: Loss of normal disc height. Small endplate osteophytes. Mild artifact from hardware limiting evaluation of neural foramen. Mild bilateral neural foraminal narrowing. No central canal stenosis . The visualized SI joints and sacrum are well maintained. Soft tissues: The paraspinal soft tissues are unremarkable. IMPRESSION: Stable postsurgical changes at L4-5. Stable degenerative disc changes at L5-S1 with mild bilateral n eural foraminal narrowing. No evidence of disc herniation at any level. No significant central canal stenosis. DATA REPOSITORY:
[2022-04-21] MEDS: MORPHine 10 MG/ML VIAL 6 MG IVP (12:08)
== END 2022-04-21 12:45 | disposition home or self-care (01) ==
PROVIDERS: Emergency Provider Physician Assistant; PCP Family Medicine
DX: M79.10 Myalgia, unspecified site (principal); M54.9 Dorsalgia, unspecified
CPT/HCPCS: 80053; 82550; 96374; 96375; 96376; 99284; 72148; 81003; 85025; 86140; J1885; J2270; J3360

== ENCOUNTER 2022-08-11 19:01 | Emergency (ER) | payer MEDICARE, MEDICAID, SELFPAY ==
[2022-08-11 19:08] VITALS: BP 132/84; PULSE 97; RESP 26; TEMP 36.2; O2SAT 97
[2022-08-11] MEDS: Ketorolac 15 MG/ML VIAL IVP (19:35)
[2022-08-11] MEDS: HYDROmorphone 2 MG/ML SYR 1 MG IVP ×2 (20:11→21:13)
--- NOTE | 2022-08-11 20:48 | ED.GENADUL_ITS ---
Discharge Plan Disposition Patient Disposition: Home Discharge Details Clinical Impression: Second degree burn of right thumb Primary Care Provider: Lenin Santiago ED Provider: Mannie Guevara Home Meds and New Rx's Prescriptions: Continued omeprazole 20 MG capsule,delayed release(DR/EC) 40 mg PO BID paroxetine HCl 40 MG tablet 50 mg PO HS Patient Comments: 40mg tab and 10 mg tab for total of 50mg dose oxycodone-acetaminophen [Percocet] 5-325 mg Tablet 1 tab PO TID PRN pregabalin 50 mg Capsule 50 mg PO BID Discharge Instructions Instructions: Second-Degree Burn (ED), Acute Wound Care (ED) Additional Instructions: Please keep wound clean and dry, and you may apply bacitracin twice daily with your dressing changes. Monitor for any signs of infection and return immediately if these occur otherwise continue to take your already prescribed Percocet along with [id number] medications as needed for discomfort. Also if you have any significant worsening you may feel free to return the emergency department otherwise we have put in for a follow-up appoint with your primary care provider on Monday for recheck of your wound. Referrals: Lenin Santiago [Primary Care Provider] - Discharge Data Discharge Date/Time-TO BE ENTERED AT DEPARTURE: 08/11/22 21:13 Medical Decision Making Patient presenting to the emergency department for chief complaint of burn to his right thumb. He states that he was teaching his son how to use acetylene torch and accidentally when moving the torch went over his right thumb. He states it was brief burn and no other injury or trauma. Physical exam shows second-degree burn with sensation intact to the dorsal aspect of the right thumb there is noted blistering and singed hair. The remainder exam of the hand is unremarkable, patient does have slight decrease sensation to the tip of the thumb but also notes decreased sensation to the palmar aspect which has no pain discomfort or evidence of burn. I question if some of this decree sensation is secondary to inflammation from the burn. Patient does have range of motion which is painful and expected. Patient given Toradol and hydromorphone and wound was thoroughly cleansed. Patient is up-to-date on tetanus. wound wrapped with bacitracin and patient instructed to watch for signs of infection and return immediately if these occur. Otherwise we will have patient follow-up with primary care provider for recheck. After discussion of diagnosis and plan of care patient has no further needs, questions, or concerns and states clear understanding to return to the emergency department for any worsening symptoms. This documentation was generated using [employer] system, please disregard any oddities of phrase or misspellings. HPI General Mode of arrival: ambulatory . Date/Time Provider Initiated Documentation: 08/11/22 19:13 . Limitations to Documentation: no limitations . Information obtained by: patient and RN notes reviewed . History of Present Illness 47 year old M presents to the emergency department with the chief complaint of Right hand burn, described as moderate, Quality is described as burning and sharp, and is localized to the right and upper extremity. Patient started experiencing this hour(s) (<1) and it has been constant. No relieving factors improve symptom(s), No exacerbating factors reported . Patient notes no other symptoms.. Patient did receive the following treatments prior to arrival, none Related Data Home Medications Medication Instructions Recorded Confirmed omeprazole 20 mg capsule,delayed 40 mg PO BID 03/13/14 08/11/22 release paroxetine HCl 40 mg tablet 50 mg PO HS 03/13/14 08/11/22 oxycodone-acetaminophen 5 mg-325 1 tab PO TID PRN 06/10/18 08/11/22 mg tablet (Percocet) pregabalin 50 mg capsule 50 mg PO BID 05/10/19 08/11/22 Allergies Allergy/AdvReac Type Severity Reaction Status Date / Time house dust mite AdvReac Intermediate nasal Unverified 04/21/22 09:28 congestion mold AdvReac Mild rhinitis, Verified 04/21/22 09:28 sneezing General Stated Complaint: Burn TJ: 2 Review of Systems Narrative: 6 systems reviewed and unremarkable except what is marked below. Integumentary/Breasts Skin/Breast: Reports as per HPI PFSH All Active Problems Second degree burn of right thumb (Acute) Hyperplastic colon polyp (Acute ~12/2020) Family history of colon cancer (Acute) Hypokalemia due to loss of potassium (Acute) Anemia (Chronic) Sinus pressure (Acute) BRBPR (bright red blood per rectum) (Acute) Ileitis (Acute) DVT prophylaxis (Acute) Discharge planning issues (Acute) Allergic rhinitis (Chronic) Vomiting and diarrhea (Acute) Sinusitis, acute, maxillary (Acute) Medical History Chronic back pain greater than 3 months duration Chronic maxillary sinusitis Chronic prescription opiate use Chronic rhinitis Depression GERD (gastroesophageal reflux disease) Insomnia Panic attack Smoker Surgical History History of colonoscopy with polypectomy (~12/25/20) Social History Smoking/Tobacco Use Status: Current every day Tobacco Type: cigarettes Years smoked: 20 Counseling given: provider counseling Smoking risk assessment performed?: Yes Alcohol Intake: former Drug use: Never Substance use type: does not use current occupation: Works on farm Do you feel safe at home: Yes Do you feel safe in your relationship?: Yes Exam Const General: cooperative and not ill appearing Orientation: alert, awake and oriented x3 HENMT Mouth: moist mucous membranes Resp Effort & Inspection: normal respiratory effort, able to speak in complete sentences and no respiratory distress Cardio Rate: regular rate Rhythm: regular rhythm Pulses: normal peripheral pulses Neuro General: patient alert, patient awake, patient oriented x3, moves all extremities and no focal motor deficits Sensory Exam: no sensory deficits noted Extrem General: normal exam except as noted Right upper extremity: hand Details: normal capillary refill, neuromotor exam normal, neurosensory exam abnormal Details: digital nerve sensory function normal (Distal decrease) Location: in the thumb, tendon exam normal, tenderness Location: of the thumb, normal ROM of fingers and other (Second-degree locke to dorsal thumb) Course Vital Signs Vital signs: Vital Signs Temperature 36.2 C L 08/11/22 19:08 Pulse 97 H 08/11/22 19:08 Respiratory Rate 26 H 08/11/22 19:08 Blood Pressure 132/84 08/11/22 19:08 Pulse Oximetry 97 08/11/22 19:08 Temperature 36.2 C L 08/11/22 19:08 Temperature Source Tympanic 08/11/22 19:08 Pulse 97 H 08/11/22 19:08 Respiratory Rate 26 H 08/11/22 19:08 Respiratory Effort Normal, Non-Labored 08/11/22 19:10 Blood Pressure 132/84 08/11/22 19:08 Blood Pressure Position Sitting 08/11/22 19:08 Pulse Oximetry 97 08/11/22 19:08 Oxygen Delivery Method Room Air 08/11/22 19:08 Oxygen Flow Rate 0 08/11/22 19:08 Pain Level 10 08/11/22 19:10
--- NOTE | 2022-08-11 20:52 | NUR.NOTE ---
Nursing Note: referral to pcp for burn followup
[2022-08-11 21:12] VITALS: PULSE 89; RESP 19; O2SAT 99
== END 2022-08-11 21:13 | disposition home or self-care (01) ==
PROVIDERS: Emergency Provider Nurse Practitioner Family; PCP Family Medicine
DX: T23.211A Burn of second degree of right thumb (nail), initial encounter (principal)
CPT/HCPCS: 16020; 96374; 96375; 96376; 99284; J1170; J1885

== ENCOUNTER 2023-01-09 21:17 | Emergency (ER) | payer MEDICARE, MEDICAID, SELFPAY ==
[2023-01-09 21:20] VITALS: BP 142/95; PULSE 75; RESP 16; TEMP 36.7; O2SAT 100
--- NOTE | 2023-01-09 21:28 | ED.GENADUL_ITS ---
Discharge Plan Disposition Patient Disposition: Home Condition: Stable Discharge Details Clinical Impression: Contusion of foot, right Primary Care Provider: Lenin Santiago ED Provider: Danielle Wayne Home Meds and New Rx's Prescriptions: Continued omeprazole 20 MG capsule,delayed release(DR/EC) 40 mg PO BID paroxetine HCl 40 MG tablet 50 mg PO HS Patient Comments: 40mg tab and 10 mg tab for total of 50mg dose oxycodone-acetaminophen [Percocet] 5-325 mg Tablet 1 tab PO TID PRN pregabalin 50 mg Capsule 50 mg PO BID Discharge Instructions Instructions: Foot Contusion (ED) Additional Instructions: Ice to affected area for the next 24 to 48 hours then can use heat or ice and wear Postop shoe for comfort Ibuprofen 600 mg 4 times daily take with food can add acetaminophen 650 mg 4 times daily for breakthrough pain if needed Referrals: Lenin Santiago [Primary Care Provider] - Medical Decision Making Patient presents for evaluation of crush injury to right foot. Ice bag provided, given ibuprofen 800 mg orally. Will obtain x-ray of right foot. X-ray reviewed and no acute fracture or dislocation. Postop shoe will be provided with symptom management instructions. Stable for discharge to home follow-up as needed Imaging Data Radiologic Study: Imaging: X-Ray Radiologist's impression: Exam(s) PROCEDURE INFORMATION: Exam: XR Right Foot Exam date and time: 01/09/2023 9:39 PM Age: 47 years old Clinical indication: Injury or trauma; Other: Patient dropped 100 lbs iron beam on foot; Blunt trauma; Right; Injury date: 01/09/23; Patient HX: Trauma, pain lateral 4/5 metatarsal TECHNIQUE: Imaging protocol: Radiologic exam of the right foot. Views: 3 or more views. COMPARISON: CR XR foot RT complete 06/10/2018 10:32 AM FINDINGS: Bones/joints: Normal. Soft tissues: Normal. IMPRESSION: 1. No acute findings. 2. No fracture or dislocation. Dictated and Authenticated by: Austin Swenson MD. HPI General Mode of arrival: ambulatory . Date/Time Provider Initiated Documentation: 01/09/23 21:20 . Limitations to Documentation: no limitations . Information obtained by: patient . HPI Narrative: This is a 47-year-old male patient under his usual state of health when tonight he dropped 100 pound weight lifting plate on his right foot. He has pain bruising swelling no obvious deformity he is able to bear weight and ambulate. He did not ice or take ibuprofen this happened 30 minutes prior to arrival he came straight here for evaluation Related Data Home Medications Medication Instructions Recorded Confirmed omeprazole 20 mg capsule,delayed 40 mg PO BID 03/13/14 01/09/23 release paroxetine HCl 40 mg tablet 50 mg PO HS 03/13/14 01/09/23 oxycodone-acetaminophen 5 mg-325 1 tab PO TID PRN 06/10/18 01/09/23 mg tablet (Percocet) pregabalin 50 mg capsule 50 mg PO BID 05/10/19 01/09/23 Allergies Allergy/AdvReac Type Severity Reaction Status Date / Time house dust mite AdvReac Intermediate nasal Unverified 01/09/23 21:31 congestion mold AdvReac Mild rhinitis, Verified 01/09/23 21:31 sneezing General Stated Complaint: Trauma TJ: 4 Review of Systems All systems reviewed & are unremarkable except as noted in HPI and below PFSH All Active Problems (Updated 01/09/23 @ 22:19 by Danielle Wayne NP) Contusion of foot, right (Acute) Hyperplastic colon polyp (Acute ~12/2020) Family history of colon cancer (Acute) Hypokalemia due to loss of potassium (Acute) Anemia (Chronic) Sinus pressure (Acute) BRBPR (bright red blood per rectum) (Acute) Ileitis (Acute) DVT prophylaxis (Acute) Discharge planning issues (Acute) Allergic rhinitis (Chronic) Vomiting and diarrhea (Acute) Sinusitis, acute, maxillary (Acute) Medical History Chronic back pain greater than 3 months duration Chronic maxillary sinusitis Chronic prescription opiate use Chronic rhinitis Depression GERD (gastroesophageal reflux disease) Insomnia Panic attack Smoker Surgical History History of colonoscopy with polypectomy (~12/25/20) Social History Smoking/Tobacco Use Status: Current every day Tobacco Type: cigarettes Years smoked: 20 Counseling given: provider counseling Smoking risk assessment performed?: Yes Alcohol Intake: former Drug use: Never Substance use type: does not use current occupation: Works on farm Do you feel safe at home: Yes Do you feel safe in your relationship?: Yes Exam Resp Effort & Inspection: normal respiratory effort Cardio Rate: regular rate (good pedal pulse) Rhythm: regular rhythm Skin General skin exam: ecchymosis (Dorsal aspect of foot over fourth and fifth metatarsal) Lesions: no lesions Rashes: no rashes Neuro General: patient alert, patient awake and patient oriented x3 Motor: muscle tone normal throughout and strength 5/5 throughout Extrem Right lower extremity: foot (good cap refill and sensation, warm to touch) Details: normal capillary refill and ecchymosis (and hematoma to lateral right foot over 4/5 metatarsal) Course Vital Signs Vital signs: Vital Signs Temperature 36.7 C 01/09/23 21:20 Pulse 75 01/09/23 21:20 Respiratory Rate 16 01/09/23 21:20 Blood Pressure 142/95 H 01/09/23 21:20 Pulse Oximetry 100 01/09/23 21:20 Temperature 36.7 C 01/09/23 21:20 Temperature Source Oral 01/09/23 21:20 Pulse 75 01/09/23 21:20 Respiratory Rate 16 01/09/23 21:20 Respiratory Effort Normal, Non-Labored 01/09/23 21:24 Blood Pressure 142/95 H 01/09/23 21:20 Pulse Oximetry 100 01/09/23 21:20 Oxygen Delivery Method Room Air 01/09/23 21:20 Oxygen Flow Rate 0 01/09/23 21:20 Pain Level 6 01/09/23 21:24
[2023-01-09] MEDS: Ibuprofen 800 MG TAB PO (21:31)
--- NOTE | 2023-01-09 21:47 | DI.RAD_ITS ---
Exam(s) XR FOOT RT COMPLETE EXAM: XR FOOT RT COMPLETE CLINICAL HISTORY: trauma, pain lateral 4/5 metatarsal. TECHNIQUE: 2D digital imaging was performed. COMPARISON: CR XR toe RT great from 06/10/2018 FINDINGS: 3 views No evidence of acute fracture or dislocation. No diastasis of the Lisfranc joint. Bone density norm al. No osseous lesions. No radiopaque foreign body evident. IMPRESSION: No acute osseous findings in the foot. DATA REPOSITORY: RADIATION DOSE DELIVERED:
--- NOTE | 2023-01-09 22:00 | DI.VRAD_ITS ---
PROCEDURE INFORMATION: Exam: XR Right Foot Exam date and time: 01/09/2023 9:39 PM Age: 47 years old Clinical indication: Injury or trauma; Other: Patient dropped 100 lbs iron beam on foot; Blunt trauma; Right; Injury date: 01/09/23; Patient HX: Trauma, pain lateral 4/5 metatarsal TECHNIQUE: Imaging protocol: Radiologic exam of the right foot. Views: 3 or more views. COMPARISON: CR XR foot RT complete 06/10/2018 10:32 AM FINDINGS: Bones/joints: Normal. Soft tissues: Normal. IMPRESSION: 1. No acute findings. 2. No fracture or dislocation. Dictated and Authenticated by: Austin Swenson MD. Ordering:MAYCO Santos MD
[2023-01-09 22:39] VITALS: BP 140/90; PULSE 72; RESP 16; O2SAT 99
== END 2023-01-09 22:39 | disposition home or self-care (01) ==
PROVIDERS: Emergency Provider Nurse Practitioner Acute Care; PCP Family Medicine
DX: S90.31XA Contusion of right foot, initial encounter (principal); W20.8XXA Other cause of strike by thrown, projected or falling object, initial encounter
CPT/HCPCS: 99283; 73630

== ENCOUNTER 2023-02-14 11:42 | Outpatient (REF) | payer MEDICARE, MEDICAID, SELFPAY ==
[2023-02-01 21:03] LABS: Abs Immature Grans 0.02 10^3/uL (0.0-0.06); Absolute Basophil Count 0.06 10^3/uL (0.0-0.2); Absolute Eosinophil Count 0.27 10^3/uL (0.0-0.7); Absolute Lymphocyte Count 2.58 10^3/uL (1.2-3.4); Absolute Monocyte Count 0.53 10^3/uL (0.1-0.8); Absolute Neutrophil Count 3.96 10^3/uL (1.2-6.7); Basophils % 0.8; Eosinophils % 3.6; HCT 40.7 % (40.0-50.0); HGB 13.7 g/dL (13.5-17.5); Immature Grans % 0.3; Lymphocytes % 34.8; MCH 30.2 pg (27.0-33.0); MCHC 33.7 % (32.0-36.0); MCV 90 fL (80-95); MPV 9.2 fL (8.0-11.0); Monocytes % 7.1; Neutrophils % 53.4; Platelet Count 286 10^3/uL (130-400); RBC 4.54 10^6/uL (4.36-5.78); RDW 11.9 % (11.8-14.1); WBC 7.42 10^3/uL (4.4-10.8)
[2023-02-01 21:34] LABS: Vitamin D 25 Total 30.7 ng/mL (30-100)
[2023-02-01 21:45] LABS: ALT 20 U/L (16-63); AST 17 U/L (15-37); Albumin 3.8 g/dL (3.4-5.0); Alkaline Phosphatase 67 U/L (46-116); Anion Gap 3.3 mmol/L (3-11); BUN 12 mg/dL (7-18); Bilirubin, Total 0.4 mg/dL (0.2-1.0); CO2 30.7 mmol/L (21.0-32.0); Chloride 104 mmol/L (98-107); Estimated GFR 92.84 (mL/min/1.73m2); Glucose 108 mg/dL (74-106); Potassium 3.9 mmol/L (3.5-5.1); Sodium 138 mmol/L (136-145); TSH 1.82 uIU/mL (0.36-3.74); Total Protein 7.2 g/dL (6.4-8.2); Vitamin B12 262 pg/mL (193-986)
== END 2023-02-14 11:43 | disposition home or self-care (01) ==
LOC: NCHCN 11:42
PROVIDERS: PCP Family Medicine; Visit Provider Family Medicine
DX: R53.83 Other fatigue (principal); R10.84 Generalized abdominal pain; E55.9 Vitamin D deficiency, unspecified; D64.9 Anemia, unspecified; E87.6 Hypokalemia
CPT/HCPCS: 80053; 82306; 82607; 84443; 85025

== ENCOUNTER → 2023-05-01 03:21 | Outpatient (CLI) | payer MEDICARE, MEDICAID, SELFPAY ==
--- NOTE | 2023-05-01 | DI.RAD_ITS ---
Exam(s) XR ABDOMEN FLAT PLATE EXAM: 2D digital imaging was performed. CLINICAL HISTORY: Unspecified abd pain, R10.9; ? constipation, assess stool burden. COMPARISON: No exams were available for comparison TECHNIQUE: Supine views of the abdomen performed. FINDINGS: BOWEL GAS PATTERN: Nondistended. Small quantity of stool. CALCIFICATIONS: No radiopaque calcifications. OSSEOUS STRUCTURES: Posterior fusion hardware at L5-S1. OTHER FINDINGS: Lung bases are clear. IMPRESSION: 1. Nonobstructive bowel gas pattern. 2. No radiopaque calculi. DATA REPOSITORY: RADIATION DOSE DELIVERED:
== END ==
PROVIDERS: PCP Family Medicine; Visit Provider Family Medicine
DX: R10.9 Unspecified abdominal pain (principal)
CPT/HCPCS: 74018

== ENCOUNTER 2023-06-16 07:58 | Emergency (ER) | payer MEDICARE, MEDICAID, SELFPAY ==
[2023-06-16 08:08] VITALS: BP 131/85; PULSE 92; RESP 16; TEMP 36.7; O2SAT 99
[2023-06-16] MEDS: Fluorescein STRIPS 100/BOX 1 MG (08:46)
[2023-06-16] MEDS: Tetracaine 0.5% 4 ML BTL OP (08:47)
--- NOTE | 2023-06-16 08:59 | ED.GENADUL_ITS ---
Discharge Plan Disposition Patient Disposition: Home Discharge Details Clinical Impression: Abrasion, corneal Primary Care Provider: Lenin Santiago ED Provider: Kerry Galaviz Home Meds and New Rx's Prescriptions: New ciprofloxacin HCl 0.3 % drops 1 drp ophthalmic (eye) Q4H 7 Days Qty: 5 0RF ketorolac 0.5 % drops 1 drp ophthalmic (eye) Q6H Qty: 5 0RF Continued omeprazole 20 MG capsule,delayed release(DR/EC) 40 mg PO BID paroxetine HCl 40 MG tablet 50 mg PO HS Patient Comments: 40mg tab and 10 mg tab for total of 50mg dose oxycodone-acetaminophen [Percocet] 5-325 mg Tablet 1 tab PO TID PRN pregabalin 50 mg Capsule 50 mg PO BID Discharge Instructions Instructions: Corneal Abrasion (ED) Additional Instructions: You may use the tetracaine drops, no more than 1 drop an hour and for no longer than 24 hours You may use the ketorolac eyedrops as prescribed Use the Cipro eyedrops to prevent infection and to help heal Call [facility] if still with pain in 48 hours Wear protective lenses when using chainsaw Return earlier should he have new or worsening complaints Referrals: Lenin Santiago [Primary Care Provider] - HPI General Date/Time Provider Initiated Documentation: 06/16/23 08:17 . HPI Narrative: This 47-year-old male presents with injury to right eye. Patient states a piece of tree branch kicked back while he was chain sawing it, hitting the corner of his eye. He was not wearing safety glasses. He states it started tearing and was painful right after but secondary to persistence presents today. Denies any vision loss. Related Data Home Medications Medication Instructions Recorded Confirmed omeprazole 20 mg capsule,delayed 40 mg PO BID 03/13/14 06/16/23 release paroxetine HCl 40 mg tablet 50 mg PO HS 03/13/14 06/16/23 oxycodone-acetaminophen 5 mg-325 1 tab PO TID PRN 06/10/18 06/16/23 mg tablet (Percocet) pregabalin 50 mg capsule 50 mg PO BID 05/10/19 06/16/23 ciprofloxacin HCl 0.3 % eye drops 1 drp ophthalmic (eye) Q4H 7 days 05/03/24 #5 mL ketorolac 0.5 % eye drops 1 drp ophthalmic (eye) Q6H #5 mL 06/16/23 Previous Rx's Medication Instructions Recorded ciprofloxacin HCl 0.3 % eye drops 1 drp ophthalmic (eye) Q4H 7 days 06/16/23 #5 mL ketorolac 0.5 % eye drops 1 drp ophthalmic (eye) Q6H #5 mL 06/16/23 Allergies Allergy/AdvReac Type Severity Reaction Status Date / Time house dust mite AdvReac Intermediate nasal Unverified 06/16/23 08:12 congestion mold AdvReac Mild rhinitis, Verified 06/16/23 08:12 sneezing General Stated Complaint: EyeProblem TJ: 4 Exam Narrative Exam Narrative: 47-year-old male with abrasion to cornea on right eye, injected, pupils equal round reactive to light and accommodation, extraocular's muscles intact, no proptosis, no periorbital tenderness or evidence of trauma, no evidence of globe injury, negative Cayetano sign Course Vital Signs Vital signs: Vital Signs Temperature 36.7 C 06/16/23 08:08 Pulse 92 H 06/16/23 08:08 Respiratory Rate 16 06/16/23 08:08 Blood Pressure 131/85 06/16/23 08:08 Pulse Oximetry 99 06/16/23 08:08 Temperature 36.7 C 06/16/23 08:08 Temperature Source Skin 06/16/23 08:08 Pulse 92 H 06/16/23 08:08 Respiratory Rate 16 06/16/23 08:08 Respiratory Effort Normal, Non-Labored 06/16/23 08:12 Blood Pressure 131/85 06/16/23 08:08 Blood Pressure Position Sitting 06/16/23 08:08 Pulse Oximetry 99 06/16/23 08:08 Oxygen Delivery Method Room Air 06/16/23 08:08 Oxygen Flow Rate 0 06/16/23 08:08 Pain Level 7 06/16/23 08:12 Medical Decision Making 47-year-old male presenting with report of eye injury to right eye Visual acuity within normal limits. On exam, eye was stained with fluorescein with corneal abrasion noted, negative Cayetano sign Pupils equal round reactive to light and accommodation, extraocular muscles intact Patient is in no acute distress, feels symptomatic improvement with tetracaine, I dilated with Cyclogyl for comfort which patient tolerated well Referral to [facility] with persistent pain and placed on Cipro drops No evidence of globe trauma Return precautions reviewed and patient expressed understanding Quality:SDOH Health Related Social Needs: No Data to Display PFSH All Active Problems (Updated 06/16/23 @ 09:00 by NORMA Saldana) Abrasion, corneal (Acute) Hyperplastic colon polyp (Acute ~12/2020) Family history of colon cancer (Acute) Hypokalemia due to loss of potassium (Acute) Anemia (Chronic) Sinus pressure (Acute) BRBPR (bright red blood per rectum) (Acute) Ileitis (Acute) DVT prophylaxis (Acute) Discharge planning issues (Acute) Allergic rhinitis (Chronic) Vomiting and diarrhea (Acute) Sinusitis, acute, maxillary (Acute) Medical History Chronic back pain greater than 3 months duration Chronic maxillary sinusitis Chronic prescription opiate use Chronic rhinitis Depression GERD (gastroesophageal reflux disease) Insomnia Panic attack Smoker Surgical History History of colonoscopy with polypectomy (~12/25/20) Social History Smoking/Tobacco Use Status: Current every day Tobacco Type: cigarettes Years smoked: 20 Counseling given: provider counseling Smoking risk assessment performed?: Yes Alcohol Intake: former Drug use: Never Substance use type: does not use Housing: house current occupation: Works on farm Do you feel safe at home: Yes Do you feel safe in your relationship?: Yes
[2023-06-16 09:14] VITALS: BP 126/93; PULSE 77; RESP 18; O2SAT 99
== END 2023-06-16 09:23 | disposition home or self-care (01) ==
PROVIDERS: Emergency Provider Physician Assistant; PCP Family Medicine
DX: S05.01XA Injury of conjunctiva and corneal abrasion without foreign body, right eye, initial encounter (principal); F17.210 Nicotine dependence, cigarettes, uncomplicated; W22.8XXA Striking against or struck by other objects, initial encounter; Y92.017 Garden or yard in single-family (private) house as the place of occurrence of the external cause
CPT/HCPCS: 99283

== ENCOUNTER 2024-05-24 11:35 | Emergency (ER) | payer MEDICARE, MEDICAID, SELFPAY ==
[2024-05-24 11:42] VITALS: BP 121/88; PULSE 87; RESP 18; TEMP 36.7; O2SAT 95
--- NOTE | 2024-05-24 12:13 | DI.MRI_ITS ---
Exam(s) MR LUMBAR SPINE WO/W EXAM: MR LUMBAR SPINE WO/W CLINICAL HISTORY: low back pain, urinary retension. TECHNIQUE: Multiplanar multisequence MRI of the Lumbar spine was performed. CONTRAST MATERIAL: 20 mL Dotarem IV COMPARISON: CT CT ABDOMEN PELVIS CTA from 03/19/2022 MR MR LUMBAR SPINE WO from 04/21/2022 CR XR ABDOMEN FLAT PLATE from 05/01/2023 FINDINGS: Bones: The last intervertebral disc space is designated the L5/S1 level for the numbering purpose of this ex amination. The vertebral body heights are well maintained. Alignment: Unremarkable. The marrow signal characteristics are unremarkable. Posterior fusion hardware present from L4 throu gh S1. No abnormal enhancement within bony structures, within the cord or central canal. Cord: The conus tip ends at the T12 level. It is of normal size and signal intensity. T12-L1: No focal disc herniation is present. No central spinal canal stenosis.No neural foraminal st enosis. L1-2: No focal disc herniation is present. No central spinal canal stenosis.No neural foraminal sten osis. L2-3:Minimal disc bulging, stable. No focal disc herniation is present. No central spinal canal st enosis.No neural foraminal stenosis. L3-4: No focal disc herniation is present. No central spinal canal stenosis.No neural foraminal wilfred nosis. L4-5:Posterior fusion hardware. Disc spacer. No central spinal canal stenosis.Mild right neural for aminal stenosis. L5-S1: Loss of disc height, small endplate osteophytes, similar to prior. Facet degenerative changes .No focal disc herniation is present. No central spinal canal stenosis.Bilateral neural foraminal s tenosis, similar to prior.. The visualized SI joints and sacrum are unremarkable. Soft tissues: The paraspinal soft tissues are unremarkable. IMPRESSION: Stable postsurgical changes of the lower lumbar spine. No evidence of acute disc herniation. No katie dence of abnormal postcontrast enhancement. DATA REPOSITORY:
[2024-05-24] MEDS: Lidocaine 5% Patch 1 PATCH TP ×2 (12:17→14:20)
[2024-05-24] MEDS: diazePAM 5 MG TAB PO (12:17)
[2024-05-24] MEDS: Ketorolac 30 MG/ML VIAL IM (12:18)
--- NOTE | 2024-05-24 12:24 | NUR.NOTE ---
When patient was injected in R deltoid and needle was removed, patient bled requiring a bandaid. No strike through on bandaid noted. Patient stated it felt wierd. Will continue to monitor, provider made aware.
[2024-05-24 12:46] LABS: Abs Immature Grans 0.03 10^3/uL (0.0-0.06); Absolute Basophil Count 0.05 10^3/uL (0.0-0.2); Absolute Eosinophil Count 0.34 10^3/uL (0.0-0.7); Absolute Lymphocyte Count 2.58 10^3/uL (1.2-3.4); Absolute Monocyte Count 0.55 10^3/uL (0.1-0.8); Absolute Neutrophil Count 3.72 10^3/uL (1.2-6.7); Basophils % 0.7 %; Eosinophils % 4.7 %; HCT 41.2 % (40.0-50.0); HGB 13.8 g/dL (13.5-17.5); Immature Grans % 0.4 %; Lymphocytes % 35.5 %; MCH 30.4 pg (27.0-33.0); MCHC 33.5 % (32.0-36.0); MCV 91 fL (80-95); MPV 8.7 fL (8.0-11.0); Monocytes % 7.6 %; Neutrophils % 51.1 %; Platelet Count 258 10^3/uL (130-400); RBC 4.54 10^6/uL (4.36-5.78); RDW 12.1 % (11.8-14.1); RDW-SD 40.4 fL; WBC 7.27 10^3/uL (4.4-10.8)
[2024-05-24 13:10] LABS: Anion Gap 7.4 mmol/L (3-11); BUN 10 mg/dL (7-18); CO2 26.6 mmol/L (21.0-32.0); CREATININE 0.9 mg/dL (0.70-1.30); Chloride 106 mmol/L (98-107); Glucose 98 mg/dL (74-106); Potassium 4.1 mmol/L (3.5-5.1); Sodium 140 mmol/L (136-145)
[2024-05-24] MEDS: Gadoterate meglumine 20 ML SYRINGE IVP (13:30)
[2024-05-24] MEDS: Normal Saline Flush 10 ML SYR IVP ×2 (13:30→14:39)
[2024-05-24] MEDS: HYDROmorphone 2 MG/ML SYR 1 MG IVP (14:38)
[2024-05-24 14:44] LABS: Bilirubin Negative (Negative); Blood Negative (Negative); Clarity Clear (Clear); Glucose Negative (Negative); Ketones Negative (Negative); Leukocyte Esterase Negative (Negative); Nitrite Negative (Negative); Specific Gravity 1.025 (1.005-1.025); Urobilinogen 0.2 mg/dL (Up to 0.2); pH 5.5 (5-8)
--- NOTE | 2024-05-24 16:12 | ED.GENADUL_ITS ---
Discharge Plan Disposition Patient Disposition: Home Condition: Stable Discharge Details Clinical Impression: Low back pain Primary Care Provider: Lenin Santiago ED Provider: Ghanshyam Pearl Home Meds and New Rx's Prescriptions: Continued omeprazole 20 MG capsule,delayed release(DR/EC) 40 mg PO BID paroxetine HCl 40 MG tablet 50 mg PO HS Patient Comments: 40mg tab and 10 mg tab for total of 50mg dose pregabalin 50 mg Capsule 50 mg PO BID oxycodone-acetaminophen [Percocet] 5-325 mg Tablet 1 tab PO TID PRN3 Days Qty: 10 0RF Discharge Instructions Instructions: Low Back Pain ED Additional Instructions: Use lidocaine patches. These are available [id number]. Dose according to label. Please take ibuprofen 600 mg by mouth every 6-8 hours as needed for pain for the next few days. Please follow-up with your community outreach specialist at [facility]. Please follow-up with your primary care physician. Return to the emergency department immediately for any worsening or new concerning symptoms. Referrals: Lenin Santiago [Primary Care Provider] - [facility] General Mode of arrival: ambulatory . Date/Time Provider Initiated Documentation: 05/24/24 11:57 . Limitations to Documentation: no limitations . Information obtained by: patient . HPI Narrative: HISTORY OF PRESENT ILLNESS The patient presents to the emergency room for evaluation of back pain. He is accompanied by his . He reports experiencing daily back pain, which he attributes to a previous surgery involving the insertion of titanium plates due to degenerative disc disease. The current episode of back pain is more severe than usual and was not precipitated by any specific incident. The onset of this exacerbation was sudden, occurring yesterday morning upon awakening, with the pain intensifying during a car ride. The pain is localized in the mid-lumbar region, without radiation to either leg. He occasionally experiences numbness and a burning sensation, although these symptoms have been absent for the past few days. The pain, which is more intense than his baseline discomfort, typically affects his right leg. The severity of the pain induces nausea and is exacerbated by movement. No recent spinal imaging. He has not been informed of any complications related to his spinal rods. His spinal specialist has advised him that his spine will continue to degenerate over time. His primary care physician has recommended he be evaluated in the ER today for MRI. He has been managing the pain with Percocet 5/325, lidocaine patches, and a heating pad, with the last administration at 7:00 AM today. Patient has run out of Percocet. He also reports constipation, despite usually having multiple bowel movements daily. He does not experience urinary incontinence and maintains normal urination. He reports no history of cardiac, pulmonary, or diabetic conditions. Related Data Home Medications ?Medication ?Instructions ?Recorded ?Confirmed omeprazole 20 mg capsule,delayed 40 mg PO BID 03/13/14 05/24/24 release paroxetine HCl 40 mg tablet 50 mg PO HS 03/13/14 05/24/24 pregabalin 50 mg capsule 50 mg PO BID 05/10/19 05/24/24 oxycodone-acetaminophen 5 mg-325 1 tab PO TID PRN 3 days #10 tabs 05/24/24 mg tablet (Percocet) Previous Rx's ?Medication ?Instructions ?Recorded oxycodone-acetaminophen 5 mg-325 1 tab PO TID PRN 3 days #10 tabs 05/24/24 mg tablet (Percocet) Allergies Allergy/AdvReac Type Severity Reaction Status Date / Time house dust mite AdvReac Intermediate nasal Unverified 05/24/24 11:46 congestion mold AdvReac Mild rhinitis, Verified 05/24/24 11:46 sneezing General Stated Complaint: Nk/Back Pain TJ: 3 Review of Systems All systems reviewed & are unremarkable except as noted in HPI and below Exam Narrative Exam Narrative: PHYSICAL EXAM General Appearance: Patient uncomfortable with movement. Vital signs: Within normal limits. HEENT: Within normal limits. Respiratory: Lungs clear. Cardiovascular: Heart sounds normal, regular rate and rhythm. Gastrointestinal: Abdomen soft, normal bowel sounds. Neurological: Sensation intact distal lower extremities bilaterally. No saddle anesthesia. Distal motor intact. Back: Tender over lumbar spine, no inflammatory changes Course Vital Signs Vital signs: Vital Signs Temperature 36.7 C 05/24/24 11:42 Pulse 87 05/24/24 11:42 Respiratory Rate 18 05/24/24 11:42 Blood Pressure 121/88 05/24/24 11:42 Pulse Oximetry 95 05/24/24 11:42 Temperature 36.7 C 05/24/24 11:42 Pulse 87 05/24/24 11:42 Respiratory Rate 18 05/24/24 11:42 Blood Pressure 121/88 05/24/24 11:42 Pulse Oximetry 95 05/24/24 11:42 Oxygen Delivery Method Room Air 05/24/24 11:42 Oxygen Flow Rate 0 05/24/24 11:42 Pain Level 9 05/24/24 11:42 Lab/Test Results Lab/Test Results: Laboratory Tests Range/Units 05/24/24 05/24/24 12:37 14:31 WBC (4.4-10.8) 10^3/uL 7.27 RBC (4.36-5.78) 10^6/uL 4.54 Hgb (13.5-17.5) g/dL 13.8 Hct (40.0-50.0) % 41.2 MCV (80-95) fL 91 MCH (27.0-33.0) pg 30.4 MCHC (32.0-36.0) % 33.5 RDW (11.8-14.1) % 12.1 Plt Count (130-400) 10^3/uL 258 MPV (8.0-11.0) fL 8.7 Immature Gran % % 0.4 Neutrophils % % 51.1 Lymphocytes % % 35.5 Monocytes % % 7.6 Eosinophils % % 4.7 Basophils % % 0.7 Nucleated RBC % (0.0-0.3) % 0.0 Absolute Neutrophils (1.2-6.7) 10^3/uL 3.72 Absolute Lymphocytes (1.2-3.4) 10^3/uL 2.58 Absolute Monocytes (0.1-0.8) 10^3/uL 0.55 Absolute Eosinophils (0.0-0.7) 10^3/uL 0.34 Absolute Basophils (0.0-0.2) 10^3/uL 0.05 Sodium (136-145) mmol/L 140 Potassium (3.5-5.1) mmol/L 4.1 Chloride (98-107) mmol/L 106 Carbon Dioxide (21.0-32.0) mmol/L 26.6 Anion Gap (3-11) mmol/L 7.4 BUN (7-18) mg/dL 10 Creatinine (0.70-1.30) mg/dL 0.9 Est GFR (CKD-EPI 2020) (mL/min/1.73m2) 104.70 Glucose (74-106) mg/dL 98 Calcium (8.5-10.1) mg/dL 9.0 Urine Color (Yellow) Yellow Urine Clarity (Clear) Clear Urine pH (5-8) 5.5 Ur Specific [place] (1.005-1.025) 1.025 Urine Protein (Neg-Trace) mg/dL Negative Urine Ketones (Negative) mg/dL Negative Urine Blood (Negative) Negative Urine Nitrite (Negative) Negative Urine Bilirubin (Negative) Negative Urine Urobilinogen (Up to 0.2) mg/dL 0.2 Ur Leukocyte Esterase (Negative) Negative Urine Glucose (Negative) mg/dL Negative Medical Decision Making ASSESSMENT AND PLAN Initial Assessment: Worsening lumbar pain with nausea, history of degenerative disk disease and spinal surgery. Constipation possibly related to pain or Percocet use. ED Course: - Apply lidocaine patch - Administer IM Valium - Administer oral Percocet - Conduct CBC, BMP, and urinalysis - MRI reviewed by radiology: stable postsurgical changes of the lower lumbar spine, no evidence of acute disk herniation, no evidence of abnormal postcontrast enhancement Final Assessment: Patient presented with worsening lumbar pain and nausea, with a history of degenerative disk disease and spinal surgery. MRI showed stable postsurgical changes without acute disk herniation. Constipation likely related to pain or Percocet use. Treatment included lidocaine patch, IM Valium, oral Percocet, and diagnostic tests. Clinical Impression: - Acute on chronic lumbar pain - Early Constipation Disposition: - Discharge with outpatient follow-up with spinal specialist and PCP - Prescribe short course of Percocet to bridge to PCP next week Patient Education: Usual and customary discharge instructions reviewed with the patient. MDM Components Evaluation: - Amount and Complexity of Data Reviewed: MRI, CBC, BMP, urinalysis - Risk of Complication and Morbidity or Mortality: Risk of worsening pain and potential complications from untreated constipation. This document was written with the assistance of EDWIN Anne. The patient consented to its use. Lab Data Lab results reviewed: Yes I reviewed the patient's lab results. Labs: Laboratory Tests Range/Units 05/24/24 05/24/24 12:37 14:31 WBC (4.4-10.8) 10^3/uL 7.27 RBC (4.36-5.78) 10^6/uL 4.54 Hgb (13.5-17.5) g/dL 13.8 Hct (40.0-50.0) % 41.2 MCV (80-95) fL 91 MCH (27.0-33.0) pg 30.4 MCHC (32.0-36.0) % 33.5 RDW (11.8-14.1) % 12.1 Plt Count (130-400) 10^3/uL 258 MPV (8.0-11.0) fL 8.7 Immature Gran % % 0.4 Neutrophils % % 51.1 Lymphocytes % % 35.5 Monocytes % % 7.6 Eosinophils % % 4.7 Basophils % % 0.7 Nucleated RBC % (0.0-0.3) % 0.0 Absolute Neutrophils (1.2-6.7) 10^3/uL 3.72 Absolute Lymphocytes (1.2-3.4) 10^3/uL 2.58 Absolute Monocytes (0.1-0.8) 10^3/uL 0.55 Absolute Eosinophils (0.0-0.7) 10^3/uL 0.34 Absolute Basophils (0.0-0.2) 10^3/uL 0.05 Sodium (136-145) mmol/L 140 Potassium (3.5-5.1) mmol/L 4.1 Chloride (98-107) mmol/L 106 Carbon Dioxide (21.0-32.0) mmol/L 26.6 Anion Gap (3-11) mmol/L 7.4 BUN (7-18) mg/dL 10 Creatinine (0.70-1.30) mg/dL 0.9 Est GFR (CKD-EPI 2020) (mL/min/1.73m2) 104.70 Glucose (74-106) mg/dL 98 Calcium (8.5-10.1) mg/dL 9.0 Urine Color (Yellow) Yellow Urine Clarity (Clear) Clear Urine pH (5-8) 5.5 Ur Specific [place] (1.005-1.025) 1.025 Urine Protein (Neg-Trace) mg/dL Negative Urine Ketones (Negative) mg/dL Negative Urine Blood (Negative) Negative Urine Nitrite (Negative) Negative Urine Bilirubin (Negative) Negative Urine Urobilinogen (Up to 0.2) mg/dL 0.2 Ur Leukocyte Esterase (Negative) Negative Urine Glucose (Negative) mg/dL Negative Quality:SDOH Health Related Social Needs: No Data to Display PFSH All Active Problems Low back pain (Acute) Hyperplastic colon polyp (Acute ~12/2020) Family history of colon cancer (Acute) Hypokalemia due to loss of potassium (Acute) Anemia (Chronic) Sinus pressure (Acute) BRBPR (bright red blood per rectum) (Acute) Ileitis (Acute) DVT prophylaxis (Acute) Discharge planning issues (Acute) Allergic rhinitis (Chronic) Vomiting and diarrhea (Acute) Sinusitis, acute, maxillary (Acute) Medical History Insomnia Panic attack Chronic maxillary sinusitis Chronic rhinitis Smoker GERD (gastroesophageal reflux disease) Chronic prescription opiate use Chronic back pain greater than 3 months duration Depression Surgical History History of colonoscopy with polypectomy (~12/25/20) Social History Smoking/Tobacco Use Status: Current every day Tobacco Type: cigarettes Years smoked: 20 Counseling given: provider counseling Smoking risk assessment performed?: Yes Alcohol Intake: former Drug use: Never Substance use type: does not use Housing: house current occupation: Works on farm Do you feel safe at home: Yes Do you feel safe in your relationship?: Yes
[2024-05-24 16:14] VITALS: BP 136/83; PULSE 74; RESP 16; O2SAT 97
== END 2024-05-24 16:26 | disposition home or self-care (01) ==
PROVIDERS: Emergency Provider Student in an Organized Health Care Education/Training Program; PCP Family Medicine
DX: M54.50 Low back pain, unspecified (principal)
CPT/HCPCS: 51798; 72158; 80048; 96372; 96374; 99284; 81003; 85025; 99283; J1171; J1885

== ENCOUNTER 2024-05-28 01:20 | Outpatient (CLI) | payer MEDICARE, MEDICAID, SELFPAY ==
--- NOTE | 2024-05-28 | DI.US_ITS ---
Exam(s) US SOFT TISSUE HEAD OR NECK EXAM: US SOFT TISSUE HEAD OR NECK CLINICAL HISTORY: Cervical lymphadenopathy, R59.0-localized enlarged lymph nodes. TECHNIQUE: Ultrasound was performed using standard protocol. COMPARISON: None FINDINGS: Sonographic assessment utilizing grayscale and color Doppler imaging was performed and targeted to th e area of clinical concern in the bilateral superior neck. In adjacent to the right parotid gland, there is an ovoid hyperechoic structure may represent a abnor veronique enlarged lymph node, measuring 1.8 x 0.8 x 1.1 cm. There is adjacent smaller hypoechoic area. The remainder of the bilateral neck shows normal appearing lymph nodes. IMPRESSION: Ovoid hypoechoic nodule in or adjacent to the right parotid gland which may represent an enlarged ly mph node or parotid mass cannot be excluded. There are other smaller lymph nodes bilaterally which d o not appear suspicious. CT or MRI with contrast could be performed for further evaluation. DATA REPOSITORY:
== END 2024-05-28 01:40 ==
PROVIDERS: PCP Family Medicine; Visit Provider Family Medicine
DX: R59.0 Localized enlarged lymph nodes (principal)
CPT/HCPCS: 76536

== ENCOUNTER 2024-09-08 14:32 | Emergency (ER) | payer MEDICARE, MEDICAID, SELFPAY ==
[2024-09-08 14:51] VITALS: BP 118/81; PULSE 87; RESP 16; TEMP 36.8; O2SAT 97
--- NOTE | 2024-09-08 15:00 | DI.RAD_ITS ---
Exam(s) XR SHOULDER RT COMPLETE 2+V EXAM: XR SHOULDER RT COMPLETE 2+V CLINICAL HISTORY: Shoulder pain. TECHNIQUE: 2D digital imaging was performed. Five views. COMPARISON: CR,XR XR SHOULDER RT COMPLETE 2+V from 05/10/2019 FINDINGS: BONES: No acute fracture is present. No bony destructive lesion is seen. JOINTS: No dislocation present. Mild spurring at the AC joint. Glenohumeral joint space is maintained shows no significant degenerative changes. SOFT TISSUE: Normal. IMPRESSION: Mild degenerative changes of the AC joint. No acute abnormality. The preliminary [facility] report was reviewed. DATA REPOSITORY: RADIATION DOSE DELIVERED:
--- NOTE | 2024-09-08 15:47 | W.ED.GENAD ---
Discharge Plan Disposition Patient Disposition: Home Condition: Stable Discharge Details Clinical Impression: Acute shoulder pain Primary Care Provider: Lenin Santiago ED Provider: Genesis Hurd Home Meds and New Rx's Prescriptions: New prednisone 50 mg tablet 50 mg PO DAILY Qty: 4 0RF No Action pregabalin 50 mg capsule 100 mg PO BID duloxetine 60 mg capsule,delayed release(DR/EC) 60 mg PO DAILY nicotine 21 mg/24 hr patch 24 hour 1 patch transdermal DAILY omeprazole 20 MG capsule,delayed release(DR/EC) 40 mg PO BID paroxetine HCl 40 MG tablet 50 mg PO HS Patient Comments: 40mg tab and 10 mg tab for total of 50mg dose oxycodone-acetaminophen [Percocet] 5-325 mg Tablet 1 tab PO TID PRN3 Days Qty: 10 0RF cyclobenzaprine 10 mg tablet 10 mg PO PRN Patient Comments: TAKE ONE TABLET BY MOUTH UP TO EVERY 8 HOURS NEEDED FOR MUSCLE SPASMS AND PAIN tamsulosin 0.4 mg capsule 0.4 mg PO DAILY Patient Comments: TAKE ONE CAPSULE BY MOUTH EVERY DAY Discharge Instructions Instructions: Rotator Cuff Injury (DC), Rotator Cuff Tendinitis Stretching Exercises, How to Use a Shoulder Sling, Shoulder Pain ED Additional Instructions: Use sling for comfort. Make sure to take arm out to range shoulder several times a day. Continue using your pain medication muscle relaxant at home as needed. Take steroid daily. I am concerned that you have a rotator cuff injury. This will need to be further evaluated by orthopedics. Please call to make follow-up appointment. Referrals: NORMA Nettles [RN FOR [facility] OR, Medicine] Clinical Impression: Acute shoulder pain Discharge Data Discharge Physician: Genesis Hurd [facility] General Date/Time Provider Initiated Documentation: 09/08/24 14:46. HPI Narrative: 49-year-old right handed male presents for evaluation of right shoulder pain. Patient states that he has had shoulder pain from time to time however today he has significant pain in his shoulder and his trapezius. He has increased pain with range of motion. Denies any falls or injuries. No numbness or tingling to his extremity. No weakness in his extremity. He has history of chronic back pain and does have muscle relaxant and pain medication at home which he did use today without any relief. Related Data Home Medications ?Medication ?Instructions ?Recorded ?Confirmed omeprazole 20 mg capsule,delayed 40 mg PO BID 03/13/14 09/08/24 release paroxetine HCl 40 mg tablet 50 mg PO HS 03/13/14 09/08/24 oxycodone-acetaminophen 5 mg-325 1 tab PO TID PRN 3 days #10 tabs 05/24/24 09/08/24 mg tablet (Percocet) duloxetine 60 mg capsule,delayed 60 mg PO DAILY 06/07/24 09/08/24 release nicotine 21 mg/24 hr daily 1 patch transdermal DAILY 06/07/24 09/08/24 transdermal patch pregabalin 50 mg capsule 100 mg PO BID 06/07/24 09/08/24 cyclobenzaprine 10 mg tablet 10 mg PO PRN 09/08/24 09/08/24 prednisone 50 mg tablet 50 mg PO DAILY #4 tabs 09/08/24 tamsulosin 0.4 mg capsule 0.4 mg PO DAILY 09/08/24 09/08/24 Previous Rx's ?Medication ?Instructions ?Recorded oxycodone-acetaminophen 5 mg-325 1 tab PO TID PRN 3 days #10 tabs 05/24/24 mg tablet (Percocet) prednisone 50 mg tablet 50 mg PO DAILY #4 tabs 09/08/24 Allergies Allergy/AdvReac Type Severity Reaction Status Date / Time bee venom protein (honey bee) Allergy Severe Unknown Verified 09/08/24 14:55 house dust mite AdvReac Intermediate nasal Unverified 09/08/24 14:55 congestion mold AdvReac Mild rhinitis, Verified 09/08/24 14:55 sneezing General Stated Complaint: Orthopedic TJ: 3 Review of Systems Narrative: Remainder of review of systems otherwise negative except for as noted in the HPI x 5. Exam Narrative Exam Narrative: General: non-toxic, no respiratory distress, uncomfortable HEENT: normocephalic, atraumatic, lids and lashes normal, PERRL, EOMI, anicteric sclera, no conjunctival injection, moist oral mucosa Neck: No vertebral tenderness Musculoskeletal: No pain to palpation over the right clavicle, mild tenderness to palpation over right trapezius, able to fully range right fingers, wrist, elbow, 2+ radial pulses, sensation intact, significant pain with range of motion of shoulder greater than 30 degrees in any direction, otherwise full range of motion of arms and legs, no tenderness to palpation. no clubbing, cyanosis, or edema Neurologic: appropriate for age, strength normal Psych: alert and oriented Skin: no petechiae, no lesions, warm and dry Course Vital Signs Vital signs: Vital Signs Temperature 36.8 C 09/08/24 14:51 Pulse 87 09/08/24 14:51 Respiratory Rate 16 09/08/24 14:51 Blood Pressure 118/81 09/08/24 14:51 Pulse Oximetry 97 09/08/24 14:51 Temperature 36.8 C 09/08/24 14:51 Temperature Source Oral 09/08/24 14:51 Pulse 87 09/08/24 14:51 Respiratory Rate 16 09/08/24 14:51 Blood Pressure 118/81 09/08/24 14:51 Blood Pressure Position Sitting 09/08/24 14:51 Pulse Oximetry 97 09/08/24 14:51 Oxygen Delivery Method Room Air 09/08/24 14:51 Oxygen Flow Rate 0 09/08/24 14:51 Pain Level 9 09/08/24 14:51 Medical Decision Making 49-year-old right handed male with history of chronic back pain presents for evaluation of significant right shoulder pain. X-ray was obtained and does not show any fracture or dislocation. Clinically I am concerned about rotator cuff injury. He is neurologically intact. He will be given a sling for comfort. He will take his home pain medication and muscle relaxant. He will be started on steroid. He is given a dose of IM Dilaudid here today. Ihave recommended close follow-up with orthopedics for further evaluation of possible rotator cuff injury. Patient understands indications to return. PFSH All Active Problems Acute shoulder pain (Acute) Neck mass (Acute) Cervical lymphadenopathy (Acute) Hyperplastic colon polyp (Acute ~12/2020) Family history of colon cancer (Acute) Hypokalemia due to loss of potassium (Acute) Anemia (Chronic) Sinus pressure (Acute) BRBPR (bright red blood per rectum) (Acute) Ileitis (Acute) DVT prophylaxis (Acute) Discharge planning issues (Acute) Allergic rhinitis (Chronic) Vomiting and diarrhea (Acute) Sinusitis, acute, maxillary (Acute) Medical History Kidney stone Fatigue Neck pain Skin sensation disturbance Obstructive sleep apnea syndrome Stress Localized skin eruption Acute stress disorder Recurrent major depression Verruca vulgaris Nicotine dependence Obesity Chronic sinusitis Osteoarthritis Chronic pain syndrome Seasonal allergic rhinitis Restless legs Generalized anxiety disorder Impacted cerumen Constipation Acne Testicular hypofunction Partner relationship problem Vitamin D deficiency Altered bowel function Diarrhea Loss of appetite Early satiety Insomnia Panic attack Chronic maxillary sinusitis Chronic rhinitis Smoker GERD (gastroesophageal reflux disease) Chronic prescription opiate use Chronic back pain greater than 3 months duration Depression Surgical History History of spinal fusion L4-5/S1 History of sinus surgery H/O radiofrequency ablation (RFA) of nerve of lumbar spine History of discectomy L4-L5 R disc excision History of colonoscopy with polypectomy (~12/25/20) Family History Father , age 60 Rectal cancer Paternal Grandfather Colon cancer Social History Smoking/Tobacco Use Status: Current every day Tobacco Type: cigarettes Years smoked: 20 Counseling given: provider counseling Smoking risk assessment performed?: Yes Alcohol Intake: former Drug use: Never Substance use type: does not use Details: patient state the 13 of September he has been cleaned off drugs for 24 years and 12yrs off alcohol Housing: house current occupation: Works on farm Do you feel safe at home: Yes Do you feel safe in your relationship?: Yes
[2024-09-08] MEDS: HYDROmorphone 2 MG/ML SYR 1 MG IM (16:02)
[2024-09-08] MEDS: predniSONE 40 MG, predniSONE 10 MG 50 MG PO (16:02)
--- NOTE | 2024-09-08 16:32 | DI.VRAD_ITS ---
PROCEDURE INFORMATION: Exam: XR Right Shoulder Exam date and time: 09/08/2024 3:22 PM Age: 49 years old Clinical indication: Pain; Shoulder; Right; Additional info: Shoulder pain TECHNIQUE: Imaging protocol: Radiologic exam of the right shoulder. Views: 2 or more views. COMPARISON: CR XR SHOULDER RT COMPLETE 2+V 05/10/2019 5:19 PM FINDINGS: Bones/joints: Normal. Soft tissues: Normal. IMPRESSION: No evidence for acute abnormality. Dictated and Authenticated by: Estephanie Potter MD. Orderin Fatimah Knutson MD
== END 2024-09-08 16:02 | disposition home or self-care (01) ==
PROVIDERS: Emergency Provider Emergency Medicine Emergency Medical Services; PCP Family Medicine
DX: M25.511 Pain in right shoulder (principal); F17.210 Nicotine dependence, cigarettes, uncomplicated
CPT/HCPCS: 96372; 99283; 73030; J1171; J7512

== ENCOUNTER 2024-10-01 01:29 | Outpatient (CLI) | payer MEDICARE, MEDICAID, SELFPAY ==
--- NOTE | 2024-10-01 06:49 | DI.CT_ITS ---
Exam(s) CT NECK W EXAM: CT NECK W INDICATION: chronic neck mass,? lipoma vs AVM,cervical [id number]. COMPARISON: No exams were available for comparison TECHNIQUE: FINDINGS: A skin marker was placed over the area of clinical concern on the right side of the neck for this scan. VISUALIZED PARANASAL SINUSES: Unremarkable. Mastoid air cells are also clear. NASOPHARYNX: Unremarkable ORODENTAL: Unremarkable. OROPHARYNX: Unremarkable. No masses evident. HYPOPHARYNX: Unremarkable. Valleculae and epiglottis and aryepiglottic folds appear normal. VOCAL CORDS: Unremarkable. No masses evident. Subglottic airway appears unremarkable. THYROID GLAND: Unremarkable. Normal size and no obvious nodules. SALIVARY GLANDS: Unremarkable. No significant findings in the parotid and submandibular glands. LYMPH NODES: There is no adenopathy evident in the neck and supraclavicular regions. OTHER: Medially subjacent to the right-sided skin marker is a benign lipoma measuring 1.4 cm AP by 1 cm wide by 2 cm craniocaudal. VISUALIZED LUNG APICES: No significant findings. IMPRESSION: 1. On the right side of the neck just lateral to the posterior aspect of the sternocleidomastoid muscle (and immediately subjacent to the GILDARDO skin marker) is a benign-appearing fatty lesion measuring 14 x 10 x 20 mm consistent with a lipoma. 2. There are no other significant focal findings in the soft tissues of the neck. 3. Small benign-appearing lymph nodes are noted in both sides the neck. There is no abnormal lymphadenopathy evident RADIATION DOSE DELIVERED: 472.85mGy.cm Total DLP DATA REPOSITORY: All CT scans at this facility are submitted to the National Radiology Data Registry (NRDR) Dose Index Registry (DIR) with the [employer] (A[employer]). RADIATION OPTIMIZATION: All CT scans at this facility use at least one of these dose optimization techniques: automated exposure control; mA and/or kV adjustment per patient size (includes targeted exams where dose is matched to clinical indication); or iterative reconstruction.
[2024-10-01] MEDS: Normal Saline - Diluent 50 ML VIAL IJ (08:33)
[2024-10-01] MEDS: Normal Saline Flush 10 ML SYR IVP (08:33)
[2024-10-01] MEDS: Omnipaque 350 MG/ML 500 ML BTL-Imaging package IJ (08:34)
== END 2024-10-01 01:49 ==
PROVIDERS: PCP Family Medicine; Visit Provider Registered Nurse Maternal Newborn
DX: R59.0 Localized enlarged lymph nodes (principal)
CPT/HCPCS: 70491

== ENCOUNTER → 2024-10-09 10:07 | Outpatient (BNVA) | payer MEDICARE, MEDICAID, SELFPAY | PROVIDERS: PCP Family Medicine; Referring Provider Family Medicine; Visit Provider Student in an Organized Health Care Education/Training Program | DX: M75.101 Unspecified rotator cuff tear or rupture of right shoulder, not specified as traumatic (principal) | CPT/HCPCS: 99213 ==

== ENCOUNTER 2024-10-30 02:07 | Outpatient (CLI) | payer MEDICARE, MEDICAID, SELFPAY ==
--- NOTE | 2024-10-30 05:45 | DI.MRI_ITS ---
Exam(s) MR UPPER JOINT RT WO EXAM: MR UPPER JOINT RT WO CLINICAL HISTORY: R SHOULDER PAIN,rt rotator cuff tear,m75.101 TECHNIQUE: Multiplanar multisequence MRI of the shoulder was performed. COMPARISON: CR,XR XR SHOULDER RT COMPLETE 2+V from 09/08/2024 FINDINGS: MARROW:There is no evidence of fracture nor Hill-Sachs deformity. There is a small well-defined benign-appearing lesion in the humeral head which measures 0.7 x 0.5 by 1.4 cm has the appearance of a benign enchondroma. There is no surrounding marrow edema. GLENOHUMERAL JOINT: No joint effusion nor obvious loose intra-articular bodies. No chondral defects. No osteophytes. No degenerative subarticular cysts. ROTATOR CUFF MECHANISM: AC JOINT/ACROMIUM: Mild-moderate degenerative changes noted in the AC joint.. There is no evidence of os acromiale. Supraspinatus: There is an area of significant signal abnormality in the supraspinatus tendon 1 cm above the foot pad insertion site, this area of signal abnormality measuring 5 mm wide by 6 mm AP. This does not completely traverse the thickness of the tendon and there is no fluid in the subacromial-subdeltoid bursa. This most probably represents relatively focal tendinitis or possibly developing partial articular side surface tear. There is no full-thickness tear. No retraction. No muscle atrophy. Infraspinatus: Intact. No evidence of tear nor muscle atrophy. Teres Minor: Intact. No evidence of tear nor muscle atrophy. Subscapularis/anterior cuff: There is a small focus of signal abnormality at the insertion site of the subscapularis at the level of the lesser tuberosity, consistent with focal tendinitis or small focus of partial-thickness tearing. There is no abnormal intraosseous signal in the adjacent lesser tuberosity nor in the coracoid process of the scapula just anterior to this. BICEPS TENDON: Exhibits normal position within the intertubercular groove. No evidence of tear. There is some fluid in the biceps tendon sheath. No loose intra-articular bodies evident LABRUM: No labral tear identified. No evidence of paralabral cyst. LABROLIGAMENTOUS/CAPSULAR COMPLEX: There is no evidence of avulsion of the anterior-inferior labrum, capsule, inferior glenohumeral ligament complex nor disruption of the scapular periosteum to suggest the presence of a Bankart lesion. QUADRILATERAL SPACE: No evidence of mass in the region of the axillary nerve and dorsal circumflex humeral vessels. Visualized triceps muscle at this level appears unremarkable. IMPRESSION: 1. There is a focal area of increased signal in the supraspinatus tendon located 1 cm proximal to the foot pad insertion site consistent with focal tendinitis. The signal is less bright than typically seen with a partial-thickness tear. There is no muscle atrophy. 2. There is a small focus of signal abnormality at the insertion site of the anterior cuff-subscapularis upon the lesser tuberosity consistent with similar findings. There is no full-thickness tear. No muscle atrophy. 3. No evidence of labral tear nor biceps tendon tear nor biceps tendon displacement. There is mild tenosynovitis fluid in the biceps tendon sheath within the intertubercular groove. There is no generalized glenohumeral joint effusion. No loose intra-articular bodies. 4. Moderate degenerative changes are noted in the AC joint. No significant degenerative changes evident in the glenohumeral joint. 5. Incidentally noted is a benign appearing bone lesion in the humeral head measuring 7 x 5 x 14 mm and having the appearance of a benign enchondroma. DATA REPOSITORY:
== END 2024-10-30 02:27 ==
PROVIDERS: PCP Family Medicine; Visit Provider Student in an Organized Health Care Education/Training Program
DX: M75.111 Incomplete rotator cuff tear or rupture of right shoulder, not specified as traumatic (principal)
CPT/HCPCS: 73221

== ENCOUNTER → 2024-11-20 10:23 | Outpatient (BNVA) | payer MEDICARE, MEDICAID, SELFPAY | PROVIDERS: PCP Family Medicine; Referring Provider Family Medicine; Visit Provider Student in an Organized Health Care Education/Training Program | DX: M75.101 Unspecified rotator cuff tear or rupture of right shoulder, not specified as traumatic (principal) | CPT/HCPCS: 99213 ==